=== PATIENT | female | born 1960 | race Caucasian/White ===

== ENCOUNTER → 2017-02-01 | Outpatient (CLI) | payer BC ==
[~2017-02-01] MED LIST: ACET-1311 PO; AMLO2.5T PO; GLC/500 PO; GLIM4TAB2 PO; HYDR25TA4 PO; LOSA1TAB38 PO; METF500T PO; MISCCAP80 PO; MULT-506 PO; NXM/40 PO; OXYB15TA12 PO; POTA20TA16 PO; PSYL0.524 PO; SOLI5TAB2 PO; VITACAP26 PO
[2017-02-01 18:51] LABS: BLOOD UREA NITROGEN 14 mg/dl (7-18); BUN/CREATININE RATIO 21.1 (10-20); CALCIUM 9.2 mg/dl (8.5-10.1); CARBON DIOXIDE 27 mmol/L (21-32); CHLORIDE 105 mmol/L (98-107); CREATININE 0.65 mg/dl (0.60-1.20); GLUCOSE 114 mg/dl (70-99); POTASSIUM 3.5 mmol/L (3.5-5.1); SODIUM 141 mmol/L (136-145)
[2017-02-02 06:23] LABS: ESTIMATED AVERAGE GLUCOSE 163 mg/dl; HA1C FLAG Normal (Normal)
== END | disposition home or self-care (01) ==
LOC: C.LABBFT 11:48
PROVIDERS: ATTEND Internal Medicine Geriatric Medicine
DX: K58.9 Irritable bowel syndrome, unspecified (principal); I10 Essential (primary) hypertension; E11.9 Type 2 diabetes mellitus without complications; G47.30 Sleep apnea, unspecified; E87.6 Hypokalemia

== ENCOUNTER → 2017-02-09 | Outpatient (CLI) | payer BC ==
--- NOTE | 2017-02-10 08:27 | MAMMOGRAPHY REPORT ---
BILATERAL DIGITAL SCREENING MAMMOGRAM WITH CAD: 02/09/2017 CLINICAL HISTORY: Routine screening. Patient has no complaints. TECHNIQUE: Bilateral CC and MLO views were obtained. Current study was also evaluated with a Comput er Aided Detection (CAD) system. COMPARISON: Comparison is made to exams dated: 02/05/2015 mammogram, 02/07/2016 mammogram, 02/14/2013 u ltrasound, 02/14/2013 mammogram, 02/01/2014 mammogram, and 01/31/2013 mammogram - [facility]. BREAST COMPOSITION: The tissue of both breasts is heterogeneously dense, which may obscure small ma sses. FINDINGS: There is stable asymmetry in the middle one third of the left breast, along the posterior nipple line on the MLO view. There are scattered benign punctate and rim calcifications throughout the breasts. No new suspicious mass, architectural distortion or cluster of microcalcifications is seen. IMPRESSION: ACR BI-RADS CATEGORY 1: NEGATIVE There is no mammographic evidence of malignancy. A 1 year screening mammogram is recommended. The p atient will receive written notification of the results. Approximately 10% of breast cancers are not detected with mammography. A negative mammographic repor t should not delay biopsy if a clinically suggestive mass is present. Lucia Ortiz M.D. ay/:02/09/2017 15:32:23 Windows Phone Developer: Delisa HOLMAN)(Juan), [facility] letter sent: Normal 1/2 BI-RADS Code: ACR BI-RADS Category 1: Negative
== END | disposition home or self-care (01) ==
LOC: C.MAMM 10:28
PROVIDERS: ATTEND Obstetrics & Gynecology
DX: Z12.31 Encounter for screening mammogram for malignant neoplasm of breast (principal)

== ENCOUNTER → 2017-04-14 | Day surgery (SDC) | payer BC ==
[2017-04-07 08:07] VITALS: Ht 167.6 cm; Wt 105.5 kg
[~2017-04-14] VITALS: Ht 167.6 cm; Wt 105.5 kg
[~2017-04-14] MED LIST changes: +LIDOCAINE HCL 2% 2 ML VIAL (20MG/ML) ONE; -METF500T PO; +PROPOFOL IV EMULSION 10 MG/ML 20 ML VIAL IV ONE; -PSYL0.524 PO; +SODIUM CHLORIDE 0.9% 500ML 500 ML IV ONE; -SOLI5TAB2 PO
--- NOTE | 2017-04-14 12:26 | Endo History and Physical ---
History & Physical Date of Service: Apr 14, 2017. Chief Complaint: diarrhea Referring Physician: Dr. Jay Alvarez History of Present Illness 57 yo CF who presents for colonoscopy secondary to diarrhea. Past Surgical History Hx Cardiac Surgery: No Hx Internal Defibrillator: No Hx Pacemaker: No Hx Abdominal Surgery: Yes (D&C AND HYSTEROSCOPY, ROHITH, CRYO, MALDONADO BSO) Hx of Implantable Prosthesis: No Hx Post-Op Nausea and Vomiting: No Hx Cancer Surgery: No Hx Thoracic Surgery: No Hx Orthopedic: No Hx Urinary Tract Surgery: No Family History Polyp Social History Smoking Status: Never Smoker Hx Substance Use: No Hx Alcohol Use: No Allergies Coded Allergies: Latex (Verified Allergy, Intermediate, RASH., 04/14/17) Adhesives (Verified Allergy, Unknown, LOCAL RASH, 04/14/17) Fluconazole (Verified Allergy, Unknown, RASH ALL OVER BODY, 04/07/17) Iodine (Verified Allergy, Unknown, PT VERB. FATHER SEVERELY ALG TO IODINE , 04/07/17) PT NEVER HAD IODINE TO EXPERIENCE Sulfa Drugs (Verified Allergy, Unknown, BLISTERS IN MOUTH, 04/07/17) Current Medications Reported Home Medications Medications Dose Route/Sig Max Daily Dose Days Date Category Glucophage (Metformin Hcl) 500 Mg Tab 500 Mg PO BID 04/14/17 Reported Ditropan Xl (Oxybutynin Chloride) 15 Mg Tab 1 Tab PO QAM 90 04/07/17 Reported Klor-Con (Potassium Chloride) 20 Meq Tabcr 20 Meq PO QAM 04/07/17 Reported Tylenol (Acetaminophen) 325 Mg Tab 2 Tab PO QAM 04/07/17 Reported Vitamin C (Vitamins C & E) 1 Cap Cap 1 Cap PO QAM 04/07/17 Reported Norvasc (Amlodipine Besylate) 2.5 Mg Tab 2 Tab PO QAM 04/07/17 Reported Probiotic (Probiotic Product) 1 Cap Cap 1 Tab PO QAM 04/07/17 Reported Multivitamin (Multivitamins) Tab 1 Tab PO QAM 04/07/17 Reported Glimepiride 4 Mg Tab 1 Tab PO QAM 90 04/07/17 Reported Hctz (Hydrochlorothiazide) 25 Mg Tab 25 Mg PO QAM 03/07/13 Reported Cozaar (Losartan Potassium) 100 Mg Tab 100 Mg PO QAM 03/07/13 Reported Vital Signs Weight (Kilograms): 105.45 Height (Feet): 5 Height (Inches): 6 Date Time Temp Pulse Resp B/P (MAP) Pulse Ox O2 Delivery O2 Flow Rate FiO2 04/14/17 11:36 36.8 87 16 141/72 (95) 97 Room Air Physical Exam General Appearance: WD/WN, no apparent distress Respiratory/Chest: Auscultation: breath sounds normal Cardiovascular: Heart Auscultation: RRR Abdomen: Bowel Sounds: normal Inspection & Palpation: soft, non-distended, no tenderness, guarding & rebound Assessment and Plan Assessment: 57 yo CF who presents for colonoscopy secondary to diarrhea. Plan: Proceed with colonoscopy.
--- NOTE | 2017-04-14 13:02 | GI REPORT ---
Procedure Date: 04/14/2017 12:18 PM Procedure: Colonoscopy Indications: Chronic diarrhea Medicines: Monitored Anesthesia Care Complications: No immediate complications. Estimated Blood Loss: Estimated blood loss: none. Procedure: Pre-Anesthesia Assessment: - Prior to the procedure, a History and Physical was performed, and patient medications and allergies were reviewed. The patient's tolerance of previous anesthesia was also reviewed. The risks and benefits of the procedure and the sedation options and risks were discussed with the patient. All questions were answered, and informed consent was obtained. Prior Anticoagulants: The patient has taken no previous anticoagulant or antiplatelet agents. ASA Grade Assessment: III - A patient with severe systemic disease. After reviewing the risks and benefits, the patient was deemed in satisfactory condition to undergo the procedure. After I obtained informed consent, the scope was passed under direct vision. Throughout the procedure, the patient's blood pressure, pulse, and oxygen saturations were monitored continuously. The scope was introduced through the anus and advanced to the terminal ileum. The colonoscopy was performed without difficulty. The patient tolerated the procedure well. The quality of the bowel preparation was good. The ileocecal valve, appendiceal orifice, and rectum were photographed. Findings: Multiple small-mouthed diverticula were found in the sigmoid colon. Non-bleeding internal hemorrhoids were found during retroflexion. The hemorrhoids were small. Several random biopsies were obtained with cold forceps for histology in the entire colon. Fluid aspiration for cytology was performed in the entire colon. Impression: - Diverticulosis in the sigmoid colon. - Non-bleeding internal hemorrhoids. - Several random biopsies were obtained in the entire colon. - Fluid aspiration was performed. Recommendation: - Resume previous diet. - Continue present medications. - Repeat colonoscopy for surveillance based on pathology results. - Return to primary care physician as previously scheduled. Desmond Jacobsen DO 04/14/2017 1:01:30 PM This report has been signed electronically. Note Initiated On: 04/14/2017 12:18 PM I attest to the content of the Intraoperative Record and orders documented therein, exceptions below
--- NOTE | 2017-04-14 13:03 | Discharge Instructions ---
Endoscopy Patient Instructions Date / Procedure(s) Performed Apr 14, 2017. Colonoscopy Allergy Information Coded Allergies: Latex (Verified Allergy, Intermediate, RASH., 04/14/17) Adhesives (Verified Allergy, Unknown, LOCAL RASH, 04/14/17) Fluconazole (Verified Allergy, Unknown, RASH ALL OVER BODY, 04/07/17) Iodine (Verified Allergy, Unknown, PT VERB. FATHER SEVERELY ALG TO IODINE , 04/07/17) PT NEVER HAD IODINE TO EXPERIENCE Sulfa Drugs (Verified Allergy, Unknown, BLISTERS IN MOUTH, 04/07/17) Discharge Date / Findings Apr 14, 2017. Random colon biopsies Stool studies collected Diverticulosis Internal hemorrhoids Medication Instructions OK to resume all medications today as prescribed Reported Home Medications Medications Dose Route/Sig Max Daily Dose Days Date Category Glucophage (Metformin Hcl) 500 Mg Tab 500 Mg PO BID 04/14/17 Reported Ditropan Xl (Oxybutynin Chloride) 15 Mg Tab 1 Tab PO QAM 90 04/07/17 Reported Klor-Con (Potassium Chloride) 20 Meq Tabcr 20 Meq PO QAM 04/07/17 Reported Tylenol (Acetaminophen) 325 Mg Tab 2 Tab PO QAM 04/07/17 Reported Vitamin C (Vitamins C & E) 1 Cap Cap 1 Cap PO QAM 04/07/17 Reported Norvasc (Amlodipine Besylate) 2.5 Mg Tab 2 Tab PO QAM 04/07/17 Reported Probiotic (Probiotic Product) 1 Cap Cap 1 Tab PO QAM 04/07/17 Reported Multivitamin (Multivitamins) Tab 1 Tab PO QAM 04/07/17 Reported Glimepiride 4 Mg Tab 1 Tab PO QAM 90 04/07/17 Reported Hctz (Hydrochlorothiazide) 25 Mg Tab 25 Mg PO QAM 03/07/13 Reported Cozaar (Losartan Potassium) 100 Mg Tab 100 Mg PO QAM 03/07/13 Reported Provider Instructions Activity Restrictions - No exercising or heavy lifting for 24 hours. - Do not drink alcohol the day of the procedure. - Do not drive a car or operate machinery until the day after the procedure. - Do not make any important decisions or sign important papers in 24 hours after the procedure. Following Day: - Return to full activity which may include returning to work/school. Diet Start your diet with liquids and light foods (jello, soup, juice, toast). Then eat your usual diet if not nauseated. Treatment For Common After Affects For mild abdominal pain, bloating, or excessive gas: - Rest - Eat lightly - Lie on right side Follow-Up Information Follow-up with Dr. Jay Alvarez as scheduled Anesthesia Information What You Should Know You have had a procedure that required some medicine to reduce anxiety and discomfort. This treatment is called moderate sedation. After receiving the treatment, you may be sleepy, but you will be able to breathe on your own. The effects of the treatment may last for several hours. Follow these instructions along with Activity/Diet recommendations noted above: * Do NOT do anything where dizziness or clumsiness would be dangerous. * Rest quietly at home today, then you can be up and about tomorrow. * Have a responsible person stay with you the rest of today. * You may have had an I.V. today. If so, you may take the dressing off later today. Recommendations Call your doctor if: * Trouble breathing * Continuous vomiting for more than 24 hours * Temperature above 101 degrees * Severe abdominal pain or bloating * Pain not relieved by pain medicine ordered * There is increased drainage or redness from any incision * A large amount of rectal bleeding greater than 2-3 tablespoons. (If you had a polyp/s removed or have hemorrhoids, a small amount of blood - from the rectum is to be expected.) * You have any unanswered questions or concerns. IN THE EVENT OF A SERIOUS EMERGENCY, GO TO THE NEAREST EMERGENCY ROOM Your discharge instructions were prepared by provider Desmond Jacobsen. Patient Instructions Signature Page Jayde Auguste Patient (or Guardian) Signature/Date: I have read and understand the instructions given to me by my caregivers. Caregiver/RN/Doctor Signature/Date: The above-named patient and/or guardian has received patient instructions on this date. + Original Patient Signature Page (only) stays with chart. Please make copy for patient.
--- NOTE | 2017-04-14 13:15 | Anesthesiology Progress Note ---
Anesthesia Post Op Note Date & Time Apr 14, 2017 at 13:15 Vital Signs Pain Intensity: 0 Vital Signs Past 12 Hours Date Time Temp Pulse Resp B/P (MAP) Pulse Ox O2 Delivery O2 Flow Rate FiO2 04/14/17 13:09 86 16 112/98 (103) 97 Room Air 04/14/17 12:54 77 16 113/69 (84) 97 Room Air 04/14/17 11:36 36.8 87 16 141/72 (95) 97 Room Air Notes Mental Status: alert / awake / arousable, participated in evaluation Pt Amnestic to Procedure: Yes Nausea / Vomiting: adequately controlled Pain: adequately controlled Airway Patency, RR, SpO2: stable & adequate BP & HR: stable & adequate Hydration State: stable & adequate Anesthetic Complications: no major complications apparent
[2017-04-14 13:25] VITALS: BP 113/80; PULSE 76; O2SAT 98
== END | disposition home or self-care (01) ==
LOC: C.GI 11:08
PROVIDERS: ATTEND Internal Medicine
DX: R19.7 Diarrhea, unspecified (principal); K57.30 Diverticulosis of large intestine without perforation or abscess without bleeding; K64.8 Other hemorrhoids

== ENCOUNTER → 2017-06-17 | Outpatient (CLI) | payer BC ==
[~2017-06-17] MED LIST changes: -LIDOCAINE HCL 2% 2 ML VIAL (20MG/ML) ONE; -NXM/40 PO; -PROPOFOL IV EMULSION 10 MG/ML 20 ML VIAL IV ONE; -SODIUM CHLORIDE 0.9% 500ML 500 ML IV ONE
[2017-06-17 14:09] LABS: ESTIMATED AVERAGE GLUCOSE 154 mg/dl; HA1C FLAG Normal (Normal)
[2017-06-17 16:43] LABS: BLOOD UREA NITROGEN 13 mg/dl (7-18); BUN/CREATININE RATIO 20.8 (10-20); CALCIUM 9.8 mg/dl (8.5-10.1); CARBON DIOXIDE 28 mmol/L (21-32); CHLORIDE 105 mmol/L (98-107); CREATININE 0.61 mg/dl (0.60-1.20); GLUCOSE 81 mg/dl (70-99); POTASSIUM 3.6 mmol/L (3.5-5.1); SODIUM 139 mmol/L (136-145)
[2017-06-22 12:30] LABS: IGA SERUM 202 mg/dL (81-463); TIS TRANS IGA 1 U/mL (<4)
== END | disposition home or self-care (01) ==
LOC: C.LABBC 12:10
PROVIDERS: ATTEND Internal Medicine Geriatric Medicine
DX: I10 Essential (primary) hypertension (principal); R19.7 Diarrhea, unspecified; E11.9 Type 2 diabetes mellitus without complications

== ENCOUNTER → 2018-02-11 | Outpatient (CLI) | payer OTHER ==
[~2018-02-11] MED LIST changes: +POTA-639 PO; -POTA20TA16 PO
--- NOTE | 2018-02-11 14:20 | MAMMOGRAPHY REPORT ---
BILATERAL DIGITAL SCREENING MAMMOGRAM TOMOSYNTHESIS WITH CAD: 02/11/2018 CLINICAL HISTORY: Routine screening. Patient has no complaints. TECHNIQUE: Breast tomosynthesis in addition to standard 2D mammography was performed. Current study was also evaluated with a Computer Aided Detection (CAD) system. COMPARISON: Comparison is made to exams dated: 02/09/2017 mammogram, 02/07/2016 mammogram, 02/05/2015 ma mmogram, 02/01/2014 mammogram, 02/14/2013 mammogram, and 01/31/2013 mammogram - [facility] ter. BREAST COMPOSITION: The tissue of both breasts is heterogeneously dense, which may obscure small mas ses. FINDINGS: No suspicious masses, calcifications, or areas of architectural distortion are noted in ei ther breast. There has been no significant interval change compared to prior exams. Bilateral benign -appearing calcifications are not significantly changed. Left breast asymmetries are stable compared to multiple prior exams. IMPRESSION: ACR BI-RADS CATEGORY 2: BENIGN There is no mammographic evidence of malignancy. A 1 year screening mammogram is recommended. The pa tient will receive written notification of the results. Approximately 10% of breast cancers are not detected with mammography. A negative mammographic report should not delay biopsy if a clinically suggestive mass is present. Roshni Garduno M.D. ah/:02/11/2018 09:11:30 Electric Meter Tester Helper: Cleopatra MARRERO(Zhane)(Juan)(BD), [facility] letter sent: Normal 1/2 BI-RADS Code: ACR BI-RADS Category 2: Benign
== END | disposition home or self-care (01) ==
LOC: C.MAMM 08:27
PROVIDERS: ATTEND Obstetrics & Gynecology
DX: Z12.31 Encounter for screening mammogram for malignant neoplasm of breast (principal)

== ENCOUNTER 2018-12-04 22:17 | Inpatient (IN) ==
[2018-12-04] MEDS ORDERED: ALBUT/IPRATROP 3MG/0.5MG NEB 3 ML VIAL INH STA (22:48)
[2018-12-04] MEDS ORDERED: ONDANSETRON INJ 2 MG/ML 2 ML VIAL IV STA (22:48)
[2018-12-04] MEDS ORDERED: SODIUM CHLORIDE 0.9% 1000ML 1,000 ML IV ONE (22:48)
[2018-12-04 23:00] LABS: Hematocrit (blood only) 33.5 % (37-47); Hemoglobin 11.5 g/dL (12.0-16.0); Mean Corpuscular Hgb Conc 34.3 g/dL (32-36); Mean Corpuscular Volume 88.6 fL (80-100); Mean Platelet Volume 11.4 fL (7.4-10.4); Platelet Count 234 K/uL (130-400); RDW Coefficient of Variation 14.8 % (11.5-14.5); RDW Standard Deviation 48.1 fL (36.4-46.3); Red Blood Count 3.78 M/uL (4.2-5.4); White Blood Count 12.24 K/uL (4.8-10.8)
--- NOTE | 2018-12-04 23:01 | Emergency Department Note ---
Entered by Daisy Jarvis acting as a scribe for History of Present Illness General Chief complaint: Respiratory Problems Stated complaint: PNEUMONIA Time Seen by Provider: 12/04/18 22:39 Source: patient Mode of arrival: ambulatory Limitations: no limitations History of Present Illness Onset (ago): day(s) 3 Location: chest Radiation: non-radiation Pain Consistency: + constant Exacerbated By: + movement and + other (exertion) Associated symptoms: + cough, + diaphoresis and + nausea/vomiting; no fever/ chills The patient is a 58 year old female who presents to the Emergency Room with complaints of respiratory problems for the past 3 days. She states she started feeling short of breath and easily windeed 3 days ago[address] She called Dr. Alvarez' s office and had a chest X-Ray done that showed bilateral pneumonia. This past weekend, she felt very fatigued and was unable to go to [employer] like normal. She was started on Doxycycline by Dr. Alvarez's office but states she has been nauseous and thinks she vomited up the 2nd dose of Doxy that she took today. She admits to diaphoresis but does not think she's been febrile. Her cough has been non-productive. The patient notes she has had pneumonia before. She is a non-smoker. She denies any prior cardiac history. The patients WBC was 9.8 on 12/02/18. She did have some liver enzyme elevations. An Xray did show basilar congestion, possible atelectasis or possible pneumonia. Home Medications Home Medications Medication Instructions Recorded Confirmed Type Lactobacillus acidophilus 460 mg PO DAILY 12/04/18 12/04/18 History [Florajen] amlodipine 2.5 mg PO DAILY 12/04/18 12/04/18 History ascorbic acid (vitamin C) [Vitamin 500 mg PO DAILY 12/04/18 12/04/18 History C] colestipol 1 g PO BID 12/04/18 12/04/18 History glimepiride 4 mg PO QAM 12/04/18 12/04/18 History hydrochlorothiazide 25 mg PO DAILY 12/04/18 12/04/18 History losartan 100 mg PO DAILY 12/04/18 12/04/18 History metformin 500 mg PO BID 12/04/18 12/04/18 History multivitamin 1 tab PO DAILY 12/04/18 12/04/18 History oxybutynin chloride 15 mg PO DAILY 12/04/18 12/04/18 History potassium chloride [Klor-Con M20] 20 meq PO DAILY 12/04/18 12/04/18 History Allergies Allergy/AdvReac Type Severity Reaction Status Date / Time latex Allergy Intermediate RASH. Verified 12/04/18 22:48 adhesive Allergy Unknown LOCAL RASH Verified 12/04/18 22:48 fluconazole Allergy Unknown RASH ALL Verified 12/04/18 22:48 OVER BODY Sulfa (Sulfonamide Allergy Unknown BLISTERS Verified 12/04/18 22:48 Antibiotics) IN MOUTH Past Med/Surg History Medical History History of pneumonia GERD (gastroesophageal reflux disease) Social History Feels Safe at Home: Yes Smoking Status: Never smoker Review of Systems See HPI for pertinent positives & negatives. and A total of 10 systems reviewed and were otherwise negative Physical Exam Vital Signs Vital Signs - 24 hr 12/04/18 22:20 12/04/18 22:41 12/04/18 22:51 Temperature 37.5 C Temperature Source Oral Sepsis Recent Fever Within 48 Hours No Sepsis Action Taken by Nursing No Action Required Pulse Rate 123 H 123 H Pulse Rate [Apical] Respiratory Rate 20 20 Respiratory Effort / Characteristics Non-Labored SOB on Exertion Respiratory Depth Normal Blood Pressure 160/77 H Blood Pressure [Left Arm] Blood Pressure Mean 104 Blood Pressure Mean [Left Arm] Pulse Oximetry 91 92 92 Oxygen Delivery Method Room Air Room Air Room Air Oxygen Flow Rate 12/04/18 23:39 12/05/18 00:30 12/05/18 00:34 Temperature 37.8 C H Temperature Source Oral Sepsis Recent Fever Within 48 Hours Sepsis Action Taken by Nursing Pulse Rate Pulse Rate [Apical] 115 H 105 H Respiratory Rate 31 H 25 H Respiratory Effort / Characteristics Respiratory Depth Blood Pressure Blood Pressure [Left Arm] 166/74 H 116/86 Blood Pressure Mean Blood Pressure Mean [Left Arm] 104 96 Pulse Oximetry 92 89 L 95 Oxygen Delivery Method Room Air Room Air Nasal Cannula Oxygen Flow Rate 2 GENERAL: Patient is in no acute distress. HEENT: No acute trauma, normocephalic atraumatic, mucous membranes dry, no nasal congestion, no scleral icterus. NECK: No stridor, no adenopathy, no meningismus, trachea is midline. LUNGS: Clear to auscultation bilaterally, no wheeze, no rhonchi, breath sounds equal. HEART: Tachycardic heart rate, regular rhythm, 2/6 systolic murmur. ABDOMEN: Soft, nontender, bowel sounds positive, no hernias, no peritonitis. EXTREMITIES: No cyanosis or edema, full range of motion of all the joints without pain or difficulty, no signs for acute trauma. NEUROLOGIC: Oriented x 3, no acute motor or sensory deficits, no focal weakness. SKIN: No rash, no jaundice, no diaphoresis. Course 2241: Past medical records reviewed. The patient was evaluated in room A12B, and a complete history and physical examination were performed. 2355: I reevaluated the patient. I discussed her results and my recommendation she remain in the hospital for further evaluation and management and she verbalized complete understanding and agreement. 0005: I discussed the patients case with Dr. Lawton, [facility]. The patient will be further evaluated. Consultations Consultation #1: I discussed the patients case with Dr. Lawton, [facility]. The patient will be further evaluated. Time: 00:05 Administered Medications Ioversol (Optiray 320 125ml) 107 ml IV ONCE PRN PRN Reason: Interaction Checking Stop: 12/09/18 00:28 Last Admin: 12/05/18 00:30 Dose: 107 ml Discontinued Medications Albuterol (Duoneb) 3 ml INH NOW STA Stop: 12/04/18 22:49 Last Admin: 12/04/18 22:57 Dose: 3 ml Sodium Chloride (Nss 1000ml) 1,000 mls @ 999 mls/hr IV .Q1H1M ONE Stop: 12/04/18 23:48 Last Infusion: 12/04/18 23:59 Dose: 0 mls/hr Admin: 12/04/18 22:57 Dose: 999 mls/hr Piperacillin Sod/Tazobactam Sod (Zosyn) 4.5 gm in 120 mls @ 240 mls/hr IV NOW ONE Stop: 12/04/18 23:55 Last Infusion: 12/05/18 00:33 Dose: 0 mls/hr Admin: 12/04/18 23:36 Dose: 240 mls/hr Sodium Chloride (Nss 1000ml) 500 mls @ 999 mls/hr IV .Q31M ONE Stop: 12/05/18 00:23 Last Admin: 12/05/18 00:32 Dose: 999 mls/hr Ondansetron HCl (Zofran) 4 mg IV NOW STA Stop: 12/04/18 22:49 Last Admin: 12/04/18 22:57 Dose: 4 mg Medical Decision Making Differential Diagnosis The differential diagnoses considered include: Pneumonia or bronchitis, dehydration, failed outpatient treatment, CHF, ME, angina, renal failure, anemia. Medical Records Attestation: I reviewed the patient's medical records. Home Medications Current Medication List: was personally reviewed by me Laboratory Data Attestation: I reviewed the patient's lab results. Result diagrams: 12/04/18 22:39 12/04/18 22:39 Lab Results 12/04/18 12/04/18 12/04/18 Range/Units 21:24 22:39 22:39 WBC 12.24 H (4.8-10.8) K/uL RBC 3.78 L (4.2-5.4) M/uL Hgb 11.5 L (12.0-16.0) g/dL Hct 33.5 L (37-47) % MCV 88.6 (80-100) fL MCH 30.4 (25-34) pg MCHC 34.3 (32-36) g/dL RDW Std Deviation 48.1 H (36.4-46.3) fL RDW Coeff of Benjamin 14.8 H (11.5-14.5) % Plt Count 234 (130-400) K/uL MPV 11.4 H (7.4-10.4) fL Neutrophils % (Manual) 31.3 % Lymphocytes % (Manual) 7.0 % Reactive Lymphs % (Man) 55.6 % Monocytes % (Manual) 5.2 % Myelocytes % (Man) 0.9 % Neutrophils # (Manual) 3.83 (1.4-6.5) K/uL Total Absolute Neuts 3.83 (1.4-6.5) K/uL Lymphocytes # (Manual) 0.86 L (1.2-3.4) K/uL Reactive Lymphs # 6.81 K/uL Total Abs Lymphocytes 7.66 H (1.2-3.4) K/uL Monocytes # (Manual) 0.64 H (0.11-0.59) K/uL Myelocytes # (Manual) 0.11 H (0-0) K/uL Toxic Vacuolation Occasional PT Cancelled INR Cancelled APTT Cancelled PTT Ratio Cancelled Sodium (136-145) mmol/L Potassium (3.5-5.1) mmol/L Chloride (98-107) mmol/L Carbon Dioxide (21-32) mmol/L Anion Gap (3-11) BUN (7-18) mg/dl Creatinine (0.6-1.2) mg/dl Est Cr Clr Drug Dosing ml/min Est GFR ( Amer) Est GFR (Non-Af Amer) BUN/Creatinine Ratio (10-20) Glucose (70-99) mg/dl Lactate (0.4-2.0) mmol/L Calcium (8.5-10.1) mg/dl Magnesium (1.8-2.4) mg/dl Total Bilirubin (0.2-1) mg/dl AST (15-37) U/L ALT (12-78) U/L Alkaline Phosphatase (45-117) U/L Troponin I (0-0.045) ng/ml Total Protein (6.4-8.2) gm/dl Albumin (3.4-5.0) gm/dl Globulin (2.5-4.0) gm/dl Albumin/Globulin Ratio (0.9-2) Influenza Type A Ag Neg for Influ A (Neg) Influenza Type B Ag Neg for Influ B (Neg) 12/04/18 12/04/18 Range/Units 22:39 23:07 WBC (4.8-10.8) K/uL RBC (4.2-5.4) M/uL Hgb (12.0-16.0) g/dL Hct (37-47) % MCV (80-100) fL MCH (25-34) pg MCHC (32-36) g/dL RDW Std Deviation (36.4-46.3) fL RDW Coeff of Benjamin (11.5-14.5) % Plt Count (130-400) K/uL MPV (7.4-10.4) fL Neutrophils % (Manual) % Lymphocytes % (Manual) % Reactive Lymphs % (Man) % Monocytes % (Manual) % Myelocytes % (Man) % Neutrophils # (Manual) (1.4-6.5) K/uL Total Absolute Neuts (1.4-6.5) K/uL Lymphocytes # (Manual) (1.2-3.4) K/uL Reactive Lymphs # K/uL Total Abs Lymphocytes (1.2-3.4) K/uL Monocytes # (Manual) (0.11-0.59) K/uL Myelocytes # (Manual) (0-0) K/uL Toxic Vacuolation PT INR APTT PTT Ratio Sodium 134 L (136-145) mmol/L Potassium 3.9 (3.5-5.1) mmol/L Chloride 99 (98-107) mmol/L Carbon Dioxide 25 (21-32) mmol/L Anion Gap 10.0 (3-11) BUN 13 (7-18) mg/dl Creatinine 0.93 (0.6-1.2) mg/dl Est Cr Clr Drug Dosing 74.7 ml/min Est GFR ( Amer) 77.4 Est GFR (Non-Af Amer) 66.8 BUN/Creatinine Ratio 14.3 (10-20) Glucose 91 (70-99) mg/dl Lactate 2.0 (0.4-2.0) mmol/L Calcium 8.8 (8.5-10.1) mg/dl Magnesium 1.9 (1.8-2.4) mg/dl Total Bilirubin 2.4 H (0.2-1) mg/dl AST 175 H (15-37) U/L ALT 232 H (12-78) U/L Alkaline Phosphatase 364 H (45-117) U/L Troponin I < 0.015 (0-0.045) ng/ml Total Protein 8.4 H (6.4-8.2) gm/dl Albumin 3.0 L (3.4-5.0) gm/dl Globulin 5.4 H (2.5-4.0) gm/dl Albumin/Globulin Ratio 0.6 L (0.9-2) Influenza Type A Ag (Neg) Influenza Type B Ag (Neg) Imaging Data Attestation: I personally reviewed and interpreted this imaging study as follows : My Impression: CHEST X-RAY No CHF or pneumothorax. Bibasilar congestion, worse on the right. Film looks similar to X-Ray from 12/02/18. ECG Data Attestation: I personally reviewed and interpreted this ECG as follows: Indication: SOB/dyspnea Rate (beats per minute): 113 Rhythm: sinus tachycardia Findings: no PVC and no ST elevation Blood Pressure Blood Pressure Findings: Elevated blood pressure Blood Pressure Disposition: Referred to patients primary care provider MDM Narrative There is a mild leukocytosis. This certainly could be consistent with infection. No worrisome anemia. No significant electrolyte abnormality or kidney failure. The patient does have elevated liver enzymes, they are slightly worse than just a few days ago, patient has already had her gallbladder removed. EKG shows a sinus tachycardia, no acute ischemia. Cardiac enzyme testing x1 is not consistent with acute cardiac injury. Influenza testing is negative. Chest film does suggest a bilateral lower lobe pneumonia, worse on the right. There was no CHF, no pneumothorax. Blood cultures are pending. Lactic acid level was not significantly elevated making severe sepsis less likely. The patient presents tachycardic and short of breath. She is vomiting her doxycycline which was prescribed a few days ago. She is not improved since seeing her doctors office. Patient was given a DuoNeb, she received IV saline for hydration. A second dose of IV saline was given. She was given IV Zofran for nausea, IV Zosyn as antibiotic coverage. Patient is failing outpatient treatment, I do think a hospital stay is warranted. She presents tachycardic, and on workup, does have an elevated white count and some liver enzyme elevations. The cause for the elevated liver enzymes is unclear. I did speak with case management, the on-call hospitalist was consulted. The patient is aware of all her findings. Of note, I did order for a chest CT to better evaluate the lung findings and look for the possibility of PE, this result is pending. Impression & Plan Pneumonia, Shortness of breath, Tachycardia, Failure of outpatient treatment, Vomiting, Liver enzyme elevation Discharge Plan Visit Data Chief Complaint: Respiratory Problems Stated Complaint: PNEUMONIA ED Provider: Andrés Pan Discharge Problem: Pneumonia, Shortness of breath, Tachycardia, Failure of outpatient treatment, Vomiting, Liver enzyme elevation Patient Disposition: Being Evaluated by Hospitalist Forms Stand Alone Forms: My [facility] Prescriptions Prescriptions: No Action multivitamin Tablet 1 tab PO DAILY RF: 0 metformin 500 mg Tablet 500 mg PO BID RF: 0 oxybutynin chloride 15 mg Tablet Extended Release 24hr 15 mg PO DAILY RF: 0 amlodipine 2.5 mg Tablet 2.5 mg PO DAILY RF: 0 potassium chloride [Klor-Con M20] 20 mEq Tablet,Er Particles/Crystals 20 meq PO DAILY RF: 0 ascorbic acid (vitamin C) [Vitamin C] 500 mg Tablet 500 mg PO DAILY RF: 0 glimepiride 4 mg Tablet 4 mg PO QAM RF: 0 hydrochlorothiazide 25 mg Tablet 25 mg PO DAILY RF: 0 losartan 100 mg Tablet 100 mg PO DAILY RF: 0 colestipol 1 gram Tablet 1 g PO BID RF: 0 Lactobacillus acidophilus [Florajen] 460 mg (20 billion cell) Capsule 460 mg PO DAILY RF: 0 Referrals Referrals: Caryn Jc, [facility] [Primary Care Provider] - The scribe's documentation has been prepared under my direction and personally reviewed by me in its entirety. I confirm that the note above accurately reflects all work, treatment, procedures, and medical decision making performed by me.
[2018-12-04 23:18] LABS: Alanine Aminotransferase 232 U/L (12-78); Aspartate Aminotransferase 175 U/L (15-37); BUN Creatinine Ratio 14.3 (10-20); Blood Urea Nitrogen 13 mg/dl (7-18); Calcium 8.8 mg/dl (8.5-10.1); Carbon Dioxide 25 mmol/L (21-32); Chloride 99 mmol/L (98-107); Creatinine Clr Calc Pharmacy 74.7 ml/min; Est GFR (African American) 77.4; Est GFR (Non-African American) 66.8; Glucose 91 mg/dl (70-99); Magnesium 1.9 mg/dl (1.8-2.4); Potassium 3.9 mmol/L (3.5-5.1); Sodium 134 mmol/L (136-145)
[2018-12-04] MEDS ORDERED: PIPERACILLIN/TAZOBACTAM 4.5 GM/120 ML BAG IV ONE (23:26)
[2018-12-04 23:36] LABS: Albumin Globulin Ratio 0.6 (0.9-2); Alkaline Phosphatase 364 U/L (45-117); Bilirubin,Total 2.4 mg/dl (0.2-1); Globulin 5.4 gm/dl (2.5-4.0); Total Protein 8.4 gm/dl (6.4-8.2); Troponin I < 0.015 ng/ml (0-0.045)
[2018-12-04 23:47] LABS: ALC (manual) 7.66 K/uL (1.2-3.4); Lymphocytes # (manual) 0.86 K/uL (1.2-3.4); Monocytes # (manual) 0.64 K/uL (0.11-0.59); Monocytes % (manual) 5.2 %; Myelocytes # (manual) 0.11 K/uL (0-0); Myelocytes % (manual) 0.9 %; Neutrophils % (manual) 31.3 %; Reactive Lymphocytes # (manual) 6.81 K/uL; Toxic Vacuolation Occasional
[2018-12-04] MEDS ORDERED: SODIUM CHLORIDE 0.9% 1000ML 500 ML IV ONE (23:53)
[2018-12-05] MEDS ORDERED: OPTIRAY 320 125ml IV PRN (00:29)
--- NOTE | 2018-12-05 02:01 | History & Physical Report ---
Date of Service December 05, 2018 Assessment & Plan (1) Pneumonia: Ms. Auguste is a 58-year-old woman with a history of diabetes mellitus, hypertension, urinary urgency who presents to the emergency department due to a 3-day history of feeling unwell, with a dry cough, shortness of breath and night sweats. She received Duonebs, 1.5L NS bolus, 4mg of IV zofran and zosyn in the ED. -admit to med/surg with telemetry monitoring -Patient meets criteria for sepsis with fever, elevated resp rate, elevated white cell count and pulmonary source of infection -Blood cultures drawn and pending -Patient underwent CTA of chest given patient was persistently tachycardic -> no pulmonary embolism noted. Patient has left lingular consolidation, as well as patchy bilateral scarring. Of note, patient also had prominent mediastinal, hilar and axillary lymph nodes, as well as splenomegaly & b/l thyroid nodules -Patient has elevated white cell count with increased lymphocytes. This coupled with her CT scan findings of lymphadenopathy and splenomegaly is concerning for leukemia versus a viral infection -Peripheral smear ordered, as well as flow cytometry to evaluate for leukemia -Dr. Stokes consulted given her father's rare pulmonary problem -> potentially hereditary and relating to her current presentation? -pt received zosyn in ED, will continue treatment w/ceftriaxone as she may have superimposed pneumonia, in addition to her underlying ?viral process -duonebs ordered prn -currently on 2L via nasal cannula, wean as tolerated -600mg ibuprofen ordered q8h prn pain/fever -NS ordered @ 100mls/hr x1 bag given pt appeared dry on exam Transaminitis -LFTs were checked in October 2018, and she only had mild elevation of the ALT and AST - 66 and 43 respectively. Her alkaline phosphatase and bilirubin were both normal at this time. She had another CMP done on December 02 which showed ALT of 247, AST of 147 alk phos of 310 and total bilirubin 1.3. Her LFTs have continued to worsen and today she has an ALT of 232, AST of 175, alkaline phosphatase of 364 and a total bilirubin of 2.4. -She had a biliary ultrasound done on 03/28 which showed hepatic steatosis and mild hepatomegaly. -Unsure at this time if her worsening LFTs are related to her lympadenopathy and splenomegaly, or a separate problem -EBV, CMV and hepatitis panel ordered -CT abdomen and pelvis with IV contrast ordered for tomorrow. Unable to do tonight given she had a CT thorax with IV contrast this evening. Diabetes Mellitus -Hold home metformin and glimepiride -Blood sugar checks AC/HS and placed on insulin sliding scale Hypertension -Continue home amlodipine, losartan and hydrochlorothiazide -Continue home potassium supplementation Urinary urgency -Continue home oxybutynin s/p Cholecystectomy -continue home colestipol Code status: Full, no mechanical ventilation as per discussion with patient DVT prophylaxis: Lovenox every 24 hours Disposition: admit to med/surg w/telemetry (2) Liver enzyme elevation: (3) Lymphadenopathy: (4) Splenomegaly: (5) Diabetes mellitus: (6) Hypertension: (7) Urinary urgency: (8) GERD (gastroesophageal reflux disease): (9) Failure of outpatient treatment: (10) Tachycardia: (11) Shortness of breath: History of Present Illness Primary Care Provider: Caryn Jc PA-C Ms. Auguste is a 58-year-old woman with a history of diabetes mellitus, hypertension, urinary urgency who presents to the emergency department due to a 3-day history of feeling unwell, with a dry cough, shortness of breath and night sweats. The patient states she thinks her symptoms began approximately 1 week ago. She notes that she was frequently in and out of the hospital as well as [facility], visiting her and another relative. She states that she began to feel short of breath on Wednesday, with minimal exertion, such as walking to her kitchen. She denies any chest pain or palpitations. She states that she checked her temperature at home and it was normal, but she did report chills and night sweats. She saw her primary care doctor who put her on a course of doxycycline. She took this for the past 2 days, but states her symptoms did not improve, but in fact worsened. She reports that she felt nauseous tonight and had an episode of vomiting. She states that her appetite has been significantly decreased over the last few days. She has a history of chronic diarrhea which began after she had her gallbladder removed. She states her diarrhea is no worse than usual. She does endorse mild epigastric discomfort, and states that this pain comes and goes. She is unsure if it is related to eating. She states that this feels different from her usual reflux symptoms. She denies unintentional weight loss, or a history of night sweats prior to feeling unwell. She denies a recent history of travel. She has no family history of leukemia or lymphoma. Her mother has a history of breast cancer, and her father has a history of a "lung problem" which she states was rare and Dr. Stokes wrote a case report on it. She is unsure of further details surrounding his lung problem. She also states that her was recently admitted to [facility] due to pancreatitis that was presumed to be secondary to a viral illness. Of note, she is a non-smoker, does not drink alcohol and denies use of recreational drugs. Allergies Allergy/AdvReac Type Severity Reaction Status Date / Time latex Allergy Intermediate RASH. Verified 12/04/18 22:48 adhesive Allergy Unknown LOCAL RASH Verified 12/04/18 22:48 fluconazole Allergy Unknown RASH ALL Verified 12/04/18 22:48 OVER BODY Sulfa (Sulfonamide Allergy Unknown BLISTERS Verified 12/04/18 22:48 Antibiotics) IN MOUTH Home Medications Home Medications Medication Instructions Recorded Confirmed Type Lactobacillus acidophilus 460 mg PO DAILY 12/04/18 12/04/18 History [Florajen] amlodipine 2.5 mg PO DAILY 12/04/18 12/04/18 History colestipol 1 g PO BID 12/04/18 12/04/18 History glimepiride 4 mg PO QAM 12/04/18 12/04/18 History losartan 100 mg PO DAILY 12/04/18 12/04/18 History multivitamin 1 tab PO DAILY 12/04/18 12/04/18 History oxybutynin chloride 15 mg PO DAILY 12/04/18 12/04/18 History mouthwash compounding base 227 1 ea MUCOUS MEMBRANE ACHS #150 ml 12/09/18 Rx prednisone 30 mg PO DAILY 5 Days #15 tab 12/09/18 Rx Past Med/Surg History Medical History History of pneumonia GERD (gastroesophageal reflux disease) Social History Preferred Language: Ma[place] Beliefs That Will Affect Care: None Current Living Situation: Spouse Feels Safe at Home: Yes Smoking Status: Never smoker Hx Alcohol Use: No Hx Substance Use: No Review of Systems Constitutional: + chills, + sweats, + fatigue, + weakness and + anorexia; no fever and no weight loss Respiratory: + cough; no hemoptysis, no pain on inspiration, no sputum production and no wheezing Cardiovascular: + dyspnea; no chest pain, no palpitations, no syncope, no edema and no calf pain Gastrointestinal: + abdominal pain, + nausea, + vomiting and + diarrhea/loose stools Genitourinary (Female): + urinary urgency; no dysuria and no urinary hesitancy Integumentary: no rash and no lesions Physical Exam Vital Signs (Past 24 Hours): Last Vital Signs Temp 37.8 C H 12/04/18 23:39 Pulse 106 H 12/05/18 01:30 Resp 30 H 12/05/18 01:30 BP 135/70 12/05/18 01:30 Pulse Ox 95 12/05/18 01:30 Constitutional: WD/WN, vitals as above + obese, cooperative, comfortable and + diaphoretic (mildly warm & diaphoretic) Eyes: PERRL, conjunctivae normal, anicteric sclerae Respiratory: normal respiratory effort, lungs clear to auscultation Cardiovascular: Rate/Rhythm: regular rhythm and + tachycardic Vessels: radial pulses present Extremities: normal capillary refill; no calf tenderness and no pedal edema Gastrointestinal (Abdomen): Percussion/Palpation: + abdomen tender (mildly tender over RUQ. No flank tenderness) and abdomen soft; no guarding and abdomen not rigid Psychiatric: A+Ox3, euthymic affect Results & Data Laboratory Results Laboratory Results - last 24 hr 12/04/18 12/04/18 12/04/18 21:24 22:39 22:39 WBC 12.24 H RBC 3.78 L Hgb 11.5 L Hct 33.5 L MCV 88.6 MCH 30.4 MCHC 34.3 RDW Std Deviation 48.1 H RDW Coeff of Benjamin 14.8 H Plt Count 234 MPV 11.4 H Neutrophils % (Manual) 31.3 Lymphocytes % (Manual) 7.0 Reactive Lymphs % (Man) 55.6 Monocytes % (Manual) 5.2 Myelocytes % (Man) 0.9 Neutrophils # (Manual) 3.83 Total Absolute Neuts 3.83 Lymphocytes # (Manual) 0.86 L Reactive Lymphs # 6.81 Total Abs Lymphocytes 7.66 H Monocytes # (Manual) 0.64 H Myelocytes # (Manual) 0.11 H Toxic Vacuolation Occasional PT Cancelled INR Cancelled APTT Cancelled PTT Ratio Cancelled Sodium Potassium Chloride Carbon Dioxide Anion Gap BUN Creatinine Est Cr Clr Drug Dosing Est GFR ( Amer) Est GFR (Non-Af Amer) BUN/Creatinine Ratio Glucose Lactate Calcium Magnesium Total Bilirubin AST ALT Alkaline Phosphatase Troponin I Total Protein Albumin Globulin Albumin/Globulin Ratio Influenza Type A Ag Neg for Influ A Influenza Type B Ag Neg for Influ B 12/04/18 12/04/18 22:39 23:07 WBC RBC Hgb Hct MCV MCH MCHC RDW Std Deviation RDW Coeff of Benjamin Plt Count MPV Neutrophils % (Manual) Lymphocytes % (Manual) Reactive Lymphs % (Man) Monocytes % (Manual) Myelocytes % (Man) Neutrophils # (Manual) Total Absolute Neuts Lymphocytes # (Manual) Reactive Lymphs # Total Abs Lymphocytes Monocytes # (Manual) Myelocytes # (Manual) Toxic Vacuolation PT INR APTT PTT Ratio Sodium 134 L Potassium 3.9 Chloride 99 Carbon Dioxide 25 Anion Gap 10.0 BUN 13 Creatinine 0.93 Est Cr Clr Drug Dosing 74.7 Est GFR ( Amer) 77.4 Est GFR (Non-Af Amer) 66.8 BUN/Creatinine Ratio 14.3 Glucose 91 Lactate 2.0 Calcium 8.8 Magnesium 1.9 Total Bilirubin 2.4 H AST 175 H ALT 232 H Alkaline Phosphatase 364 H Troponin I < 0.015 Total Protein 8.4 H Albumin 3.0 L Globulin 5.4 H Albumin/Globulin Ratio 0.6 L Influenza Type A Ag Influenza Type B Ag Medications Administered Current Inpatient Medications Ioversol (Optiray 320 125ml) 107 ml IV ONCE PRN PRN Reason: Interaction Checking Stop: 12/09/18 00:28 Last Admin: 12/05/18 00:30 Dose: 107 ml Supervising Physician Co-Signing Physician Notes Attending addendum: I have physically seen this patient, have supervised the medical residents activities, and agree with the H&P unless as otherwise noted. Assessment and Plan: Pneumonia/sepsis-- Duonebs every 4 hours while awake and every 2 hours when necessary. Pulmicort Respules 0.5 mg inhaled twice daily. Ceftriaxone 1 g IV daily. Azithromycin 500 mg IV daily. Guaifenesin extended release 600 mg p.o. twice daily NSS at 100 mils per hour Consult pulmonology, Dr. Stokes, due to question of hereditary pulmonary process for which Dr. Stokes has treated her father in the past and possible hereditary component. Transaminitis-- Connective tissue disease, inflammatory and infectious workup as noted. Remainder of orders notations as noted. Resident Activity Tracking Resident Involvement: Resident Care Provided Care Provided: Adult [facility]
[2018-12-05] MEDS ORDERED: ACETAMINOPHEN 325 MG TAB ONE (02:49)
[2018-12-05] MEDS ORDERED: GLUCOSE 10 TABS/TUBE PO PRN (04:08)
[2018-12-05] MEDS ORDERED: DEXTROSE 50% 50 ML SYRINGE IV PRN (04:08)
[2018-12-05] MEDS ORDERED: LEVALBUTEROL 1.25MG/0.5ML NEB NEB PRN (04:08)
[2018-12-05] MEDS ORDERED: GLUCAGON FOR INJ 1 MG VIAL SQ PRN (04:08)
[2018-12-05] MEDS ORDERED: SODIUM CHLORIDE 0.9% 1000ML 1,000 ML IV SCH (04:08)
[2018-12-05] MEDS ORDERED: GLUCOSE 40% GEL 15 GM TUBE PO PRN (04:08)
[2018-12-05] MEDS ORDERED: IBUPROFEN 600 MG TAB PO PRN (04:08)
[2018-12-05 06:32] LABS: Hematocrit (blood only) 31.7 % (37-47); Hemoglobin 10.8 g/dL (12.0-16.0); Mean Corpuscular Hgb Conc 34.1 g/dL (32-36); Mean Platelet Volume 10.9 fL (7.4-10.4); Nucleated RBC # (auto) 0.06 K/uL (0-0); Nucleated RBC % (auto) 0.4 %; Platelet Count 221 K/uL (130-400); RDW Coefficient of Variation 14.7 % (11.5-14.5); RDW Standard Deviation 48.3 fL (36.4-46.3); Red Blood Count 3.56 M/uL (4.2-5.4); White Blood Count 13.03 K/uL (4.8-10.8)
--- NOTE | 2018-12-05 06:35 | XRay Report ---
XR chest 1V portable HISTORY: 58 years-old Female sob acute shortness of breath COMPARISON: Chest radiographs 12/02/2018, CTA chest 12/05/2018 TECHNIQUE: Portable AP view of the chest FINDINGS: Cardiomediastinal and hilar silhouettes are within normal limits. There is no pneumothorax, pleural e ffusion or overt pulmonary edema. Linear linear and patchy subsegmental right greater than left bibas ilar opacities redemonstrated. Bones of the chest appear grossly intact. IMPRESSION: Persistent bibasilar opacities, right greater than left suggestive of atelectasis/scarrin g. The above report was generated using voice recognition software. It may contain grammatical, syntax o r spelling errors. Electronically signed by: Ant Oliveira M.D. 12/05/2018 6:33 AM
--- NOTE | 2018-12-05 06:38 | CT Scan Report ---
CT ANGIOGRAM OF THE CHEST CLINICAL HISTORY: Shortness of breath. Possible pulmonary embolism. COMPARISON STUDY: Chest x-ray dated 12/04/2018 TECHNIQUE: Following the IV administration of 107 mL of Optiray-320, CT angiogram of the thorax was p erformed from the thoracic inlet to the lung bases utilizing the pulmonary embolus protocol. Images a re reviewed in the axial, sagittal, and coronal planes. IV contrast was administered without complica tion. MIP imaging was performed. A dose lowering technique was utilized adhering to the principles o f ALARA. CT DOSE: 543.90 mGy.cm FINDINGS: There is a multinodular thyroid gland. There is mild hepatic steatosis. There is suspected splenomegaly. There are mildly enlarged bilateral axillary lymph nodes. There are mildly enlarged mediastinal lymph nodes with a 16 mm subcarinal node . Hilar lymph nodes are the upper limits of normal in size. There are mildly enlarged lower cervical lymph nodes. There was no evidence of thoracic aortic dilatation. There were no pulmonary artery filling defects to indicate acute pulmonary embolism. No pleural effusions are visualized. There are linear parenchymal opacities within the lingula right middle lobe and both lung bases stati stically atelectatic. IMPRESSION: 1. No evidence of acute pulmonary embolism 2. Mild cervical, mediastinal and axillary lymphadenopathy. An underlying lymphoproliferative disorde r cannot be excluded. 3. Multinodular thyroid gland 4. Mild hepatic steatosis and possible splenomegaly 5. Basilar opacities statistically atelectatic Electronically signed by: Jayden Medina M.D. 12/05/2018 6:37 AM
[2018-12-05 07:10] LABS: Albumin Globulin Ratio 0.5 (0.9-2); Albumin Level 2.7 gm/dl (3.4-5.0); BUN Creatinine Ratio 11.5 (10-20); Bilirubin,Total 2.3 mg/dl (0.2-1); Calcium 8.1 mg/dl (8.5-10.1); Creatinine Clr Calc Pharmacy 74.6 ml/min; Est GFR (African American) 77.4; Est GFR (Non-African American) 66.8; Globulin 5.3 gm/dl (2.5-4.0); Potassium 3.7 mmol/L (3.5-5.1)
[2018-12-05] MEDS: CARBOHYDRATES FOR HYPOGLYCEMIA PO PRN ×2 (07:18→07:40)
[2018-12-05 07:22] LABS: ALC (manual) 9.16 K/uL (1.2-3.4); Lymphocytes # (manual) 1.41 K/uL (1.2-3.4); Lymphocytes % (manual) 10.8 %; Monocytes # (manual) 0.23 K/uL (0.11-0.59); Monocytes % (manual) 1.8 %; Neutrophils % (manual) 27.9 %; RBC Morphology Unremarkable; Reactive Lymphocytes # (manual) 7.75 K/uL
[2018-12-05 08:42] LABS: Hepatitis B Surface Antigen Neg (Neg)
[2018-12-05] MEDS: OXYBUTYNIN CHLORIDE XL 5 MG TABCR PO SCH (09:00)
[2018-12-05] MEDS: AMLODIPINE BESYLATE 5 MG TAB PO SCH (09:01)
[2018-12-05] MEDS: POTASSIUM CHLORIDE 20 MEQ TABCR PO SCH (09:01)
[2018-12-05] MEDS: COLESTIPOL HCL 1 GM TAB PO SCH ×2 (09:01→21:03)
[2018-12-05] MEDS: MULTIVITAMIN TAB PO SCH (09:01)
[2018-12-05] MEDS: hydroCHLOROthiazide 25 MG TAB PO SCH (09:01)
[2018-12-05] MEDS: LOSARTAN POTASSIUM 50 MG TAB PO SCH (09:01)
[2018-12-05] MEDS: ASCORBIC ACID 500 MG TAB PO SCH (09:01)
[2018-12-05] MEDS: ENOXAPARIN INJ 40 MG/0.4 ML SYR SQ SCH (09:02)
[2018-12-05] MEDS ORDERED: AZITHROMYCIN 500 MG in DEXTROSE 5% 250 ML IV ONE (09:02)
[2018-12-05] MEDS: cefTRIAXone SODIUM 1,000 MG/50 ML BAG IV SCH (09:04)
[2018-12-05] MEDS: INSULIN ASPART 100 UNITS/ML 3 ML PEN SC SCH ×4 (09:05→20:59)
[2018-12-05 09:10] LABS: Hepatitis C IgG 13Yrs+Old_Rflx Neg (Neg)
[2018-12-05 11:17] LABS: INR 1.1 (0.9-1.1); Prothrombin Time 11.6 Seconds (9.0-12.0)
[2018-12-05 11:24] LABS: Amylase 30 U/L (25-115)
--- NOTE | 2018-12-05 13:27 | Consultation Report ---
DATE OF CONSULTATION: 12/05/2018 PULMONARY CONSULTATION TIME: 10:15 a.m. The patient was seen in room 284, bed 2. HISTORY OF PRESENT ILLNESS: She is a 58-year-old female who was in her usual state of good health until approximately 12/01/2018. She knows she was increasing shortness of breath with minimal exertion. She also had some increased fatigue. She complained of a dry cough. She began having some sweats nighttime and daytime. She checked her temperature, but it was not elevated. She subsequently saw her family doctor. A chest x-ray was done as an outpatient on 12/02/2018. This showed some increased markings at the bases, greater on the right than the left. An infiltrate could not be excluded. She was started on doxycycline. She developed significant nausea and vomiting. It is suspected it was secondary to doxycycline. She has not had any diarrhea. Her stomach symptoms have improved. Subsequently, she came to the Emergency Room yesterday. She was found to have a temperature up to 37.8. Heart rate was elevated at 123. A chest x-ray to the ER again showed bibasilar opacities, greater on the right than the left. A CT angio of the chest was done. This reported no evidence of pulmonary embolism. There was mild cervical, mediastinal and axillary lymphadenopathy. Multinodular thyroid gland was noted. Possible splenomegaly was seen with mild hepatic steatosis. The patient admits that about 6 months ago, she was found to have some elevation of the liver function test. Again, bibasilar opacities were noted. In the lingula, there was what I suspect is an infiltrate. It looks more infiltrated than atelectatic from my perspective. She is feeling better today. She did not cough during the exam. She did not seem short of breath at all. PAST PULMONARY HISTORY: Negative except for possible pneumonia in the past. She does have sleep apnea and wears a CPAP. She does not know the pressure. PAST MEDICAL HISTORY: 1. Hypertension. 2. Diabetes. 3. Reflux. PAST SURGICAL HISTORY: 1. Cholecystectomy. 2. Hysteroscopy. 3. Hysterectomy. SOCIAL HISTORY: Tobacco, never. ETOH - none. ALLERGIES: LATEX, ADHESIVES, FLUCONAZOLE, SULFA. OCCUPATIONAL HISTORY: The patient is retired. 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 She did not have any significant exposures to dust, fumes or chemicals. REVIEW OF SYSTEMS: The patient's energy level has been a little lower than normal. Denies headache or dizziness. She does not snore, but she used to snore loudly before getting CPAP. She denies problems with her sleep. She had an episode of chest pain within the past week that was feeling like reflux. She was taking some reflux medicines for a few days and this was atypical for her. On one day, she had some pain in the right upper chest into the shoulder. This was short lived. She has marked urinary frequency. She feels she has a hyperactive bladder. CURRENT MEDICATIONS: 1. Ceftriaxone 1 g daily. 2. Azithromycin 500 mg daily. 3. Amlodipine 2.5 mg daily. 4. Ascorbic acid 500 mg daily. 5. Colestid 1 g b.i.d. 6. Lovenox 40 mg subQ daily. 7. NovoLog. 8. HCTZ 25 mg daily. 9. Losartan 100 mg daily. 10. Multivitamins. 11. Oxybutynin 15 mg daily. 12. Potassium 20 mEq daily. 13. Levalbuterol p.r.n. 14. Glucagon p.r.n. PHYSICAL EXAMINATION: GENERAL: The patient is a very pleasant 58-year-old female, who was cooperative, alert and oriented. She was in no distress at rest. VITAL SIGNS: Current temperature is 36.4. Maximum temperature 38.1 and this occurred at 2:00 this morning. HEENT: Pupils were reactive to light. Nares were clear. The patient has a very high pitched voice, which she states is normal. Mouth exam shows a Mallampati grade 3 pharynx. No erythema or exudate was noted. NECK: She has a large neck. No definite adenopathy was palpated. HEART: Heart rate was 100 per minute. Rhythm was regular. Blood pressure 126/76. Pressure was much higher when she first came in at 160/77. LUNGS: Auscultation of the lung silver revealed good breath sounds throughout. Very slight rales were heard posteriorly bilaterally. No wheezes heard. No rhonchi heard. Respiratory rate 18. Saturations 91% on a nasal cannula. ABDOMEN: Obese. Bowel sounds were mildly decreased, but were present. There was no tenderness to palpation, masses, or organomegaly. EXTREMITIES: Showed no cyanosis, clubbing or edema. LABORATORY DATA: White count this morning is 13.03. Hemoglobin 10.8. Platelets 221,000. The neutrophil percent is 27.9, which would be low. Lymphocytes 10.8. Reactive lymphs 59.5. Monocytes 1.8. She did have CBC done on 12/02/2018 and white count then was 9.81. On the , CBC was done. The differential at that time showed 31.3 neutrophils, 7 lymphs, 55.6 reactive lymphs, 5.2 monos. Coags were not done. Electrolytes show sodium 138, potassium 3.7, chloride 104, bicarb 27. BUN is 11 with creatinine 0.93. Blood sugars today have been low, ranging from 52-59 and then ultimately 84. She did not have symptoms of hypoglycemia she states when these were low. Calcium level is 8.1. Total bilirubin elevated at 2.3. AST is 152. Yesterday it was 175. ALT today 208 and yesterday it was 232. Alk phos is 335 today and yesterday it was 364. Urinalysis was unremarkable. [place] screen was reported as positive. Flow cytometry is pending. EKG showed a sinus tachycardia with a rate of 113. Mild nonspecific ST and T-wave changes seen. IMPRESSION: 1. Pneumonia involving the lingula. 2. Atelectatic changes at both lung bases. 3. Mild mediastinal adenopathy with cervical and axillary adenopathy reported as well, although nonpalpable. 4. Abnormal liver function tests. 5. Increased reactive lymphocytes. 6. Obstructive sleep apnea - on nasal CPAP at home. COMMENTS AND RECOMMENDATIONS: The patient is being treated as if she had pneumonia with ceftriaxone and azithromycin. Would check urinary antigen for legionella. I believe serum amylase and lipase should be checked. She states her was ill recently with something similar and he was found to have elevated pancreatic enzymes. Would check an INR in light of the elevated liver function test. Would check a sed rate. The patient's father reportedly had something rare from a pulmonary perspective, but she did not know what it was. I will try to verify what problem he had exactly. I am doubtful at present that this is related. Thank you very much for asking me to assist in her care.
--- NOTE | 2018-12-05 14:48 | Hospitalist Progress Note ---
Date of Service December 05, 2018 Assessment & Plan (1) Pneumonia: Ms. Auguste is a 58-year-old woman with a history of diabetes mellitus, hypertension, urinary urgency who presents to the emergency department due to a 10-day history of feeling unwell, with a dry cough, worsening shortness of breath and night sweats. She is found to have a low-grade fever here, sinus tachycardia, and a leukocytosis with predominantly a lymphocytosis. Also with elevated LFTs and no abdominal pain. Chest x-ray later chest CT showed possible atelectasis versus infiltrate in the lingula and bibasilar regions Monospot is positive -Continue telemetry monitoring -Patient meets criteria for sepsis with fever, elevated resp rate, elevated white cell count and pulmonary source of infection plus likely infectious mononucleosis as the source -Blood cultures-no growth to date -Patient underwent CTA of chest given patient was persistently tachycardic -> no pulmonary embolism noted. Patient has left lingular consolidation, as well as patchy bilateral scarring. Of note, patient also had prominent mediastinal, hilar and axillary lymph nodes, as well as splenomegaly & b/l thyroid nodules Most likely with infectious mononucleosis given lymphocytosis, elevated LFTs, splenomegaly, and lymphadenopathy -Peripheral smear ordered, as well as flow cytometry to evaluate for for proliferative disorder -Appreciate pulmonary consult-agrees with continuing antibiotics with ceftriaxone and I added azithromycin today to cover for community-acquired pneumonia -duonebs ordered prn -currently on 2L via nasal cannula, wean as tolerated -600mg ibuprofen ordered q8h prn pain/fever -Continue IV fluids -Consult infectious disease for further recommendations Transaminitis likely secondary to infectious mononucleosis in the setting of known hepatic steatosis Hepatitis panel negative Checking CMV, EBV CT abdomen/pelvis is pending -LFTs were checked in October 2018, and she only had mild elevation of the ALT and AST - 66 and 43 respectively. Her alkaline phosphatase and bilirubin were both normal at this time. She had another CMP done on December 02 which showed ALT of 247, AST of 147 alk phos of 310 and total bilirubin 1.3. Her LFTs have continued to worsen-she has an ALT of 232, AST of 175, alkaline phosphatase of 364 and a total bilirubin of 2.4 on admission all of which are slightly improved today. -She had a biliary ultrasound done on 03/28 which showed hepatic steatosis and mild hepatomegaly. Diabetes Mellitus type II with hypoglycemia-given orange juice this morning -Hold home metformin and glimepiride -Blood sugar checks AC/HS and placed on insulin sliding scale Hypertension -Continue home amlodipine, losartan and hydrochlorothiazide -Continue home potassium supplementation Urinary urgency-UA negative recently for infection and no new symptoms -Continue home oxybutynin s/p Cholecystectomy -continue home colestipol Code status: Full, no mechanical ventilation as per discussion with patient DVT prophylaxis: Lovenox every 24 hours Disposition: Continue telemetry (2) Mononucleosis, infectious, with hepatitis: (3) Hypertension: (4) Diabetes mellitus: (5) Splenomegaly: (6) Lymphadenopathy: (7) Shortness of breath: (8) Liver enzyme elevation: (9) GERD (gastroesophageal reflux disease): (10) DVT prophylaxis: (11) Acute respiratory failure with hypoxia: Subjective Patient still feeling fatigued and has a mild cough but overall little improved. Denies abdominal pain or dysuria but has chronic urinary urgency. Denies chest pain or shortness of breath but remains on oxygen. Denies headache or lightheadedness. No nausea or vomiting, no diarrhea. No skin rashes or joint pains. Her CT of the abdomen pelvis did not get done yet as ordered this morning Telemetry with normal sinus rhythm with rates in the 80s Discussed her results with her Review of Systems All systems reviewed & are unremarkable except as noted in HPI & below Physical Exam 2 Vital Signs (Past 24 Hours): Last Vital Signs Temp 37.3 C 12/05/18 11:35 Pulse 105 H 12/05/18 11:35 Resp 18 12/05/18 11:35 BP 113/69 12/05/18 11:35 Pulse Ox 92 12/05/18 11:35 Constitutional: WD/WN, vitals as above Eyes: PERRL, conjunctivae normal, anicteric sclerae ENMT: external ear and nose normal, oropharynx normal Neck: trachea midline, no thyromegaly Respiratory: normal respiratory effort, lungs clear to auscultation Cardiovascular: RRR, no murmur, no edema Gastrointestinal (Abdomen): normal bowel sounds, soft, nontender, no hepatosplenomegaly Musculoskeletal: Extremities: extremities normal to inspection; no cyanosis and no clubbing Skin: no rashes, warm and dry Neurologic: moves all extremities and awake; no focal motor deficits Psychiatric: A+Ox3, euthymic affect Results & Data Laboratory Results 12/06/18 12/06/18 12/06/18 Range/Units 05:49 05:49 05:49 WBC 13.50 H (4.8-10.8) K/uL RBC 3.58 L (4.2-5.4) M/uL Hgb 10.9 L (12.0-16.0) g/dL Hct 32.0 L (37-47) % MCV 89.4 (80-100) fL MCH 30.4 (25-34) pg MCHC 34.1 (32-36) g/dL RDW Std Deviation 49.0 H (36.4-46.3) fL RDW Coeff of Benjamin 14.9 H (11.5-14.5) % Plt Count 225 (130-400) K/uL MPV 11.1 H (7.4-10.4) fL Absolute Nucleated RBC 0.08 H (0-0) K/uL Nucleated RBC % (auto) 0.6 % Neutrophils % (Manual) 30.0 % Band Neutrophils % 0.0 % Lymphocytes % (Manual) 48.0 % Prolymphocyte % 0.0 % Reactive Lymphs % (Man) 15.0 % Monocytes % (Manual) 7.0 % Eosinophils % (Manual) 0.0 % Basophils % (Manual) 0.0 % Metamyelocytes % (Man) 0.0 % Myelocytes % (Man) 0.0 % Promyelocytes % (Man) 0.0 % Blast Cells % (Manual) 0.0 % Plasma Cell % (Manual) 0.0 % Other Cells % 0.0 % Neutrophils # (Manual) 4.05 (1.4-6.5) K/uL Total Absolute Neuts 4.05 (1.4-6.5) K/uL Lymphocytes # (Manual) 6.48 H (1.2-3.4) K/uL Reactive Lymphs # 2.03 K/uL Total Abs Lymphocytes 8.51 H (1.2-3.4) K/uL Monocytes # (Manual) 0.95 H (0.11-0.59) K/uL Large Granular Lymphs 0.0 % ESR (0-21) mm/hr PT (9.0-12.0) Seconds INR (0.9-1.1) Sodium 133 L (136-145) mmol/L Potassium 3.8 (3.5-5.1) mmol/L Chloride 99 (98-107) mmol/L Carbon Dioxide 25 (21-32) mmol/L Anion Gap 9.0 (3-11) BUN 9 (7-18) mg/dl Creatinine 0.87 (0.6-1.2) mg/dl Est Cr Clr Drug Dosing 79.6 ml/min Est GFR ( Amer) 83.9 Est GFR (Non-Af Amer) 72.4 BUN/Creatinine Ratio 10.3 (10-20) Glucose 73 (70-99) mg/dl POC Glucose (70-99) Calcium 8.2 L (8.5-10.1) mg/dl Total Bilirubin 2.4 H (0.2-1) mg/dl Direct Bilirubin 1.9 H (0-0.2) mg/dl AST 154 H (15-37) U/L ALT 193 H (12-78) U/L Alkaline Phosphatase 356 H (45-117) U/L Total Protein 8.2 (6.4-8.2) gm/dl Albumin 2.7 L (3.4-5.0) gm/dl Amylase (25-115) U/L Lipase (73-393) U/L EBV Capsid Ag IgG Ab Pending EBV Capsid Ag IgM Ab Pending EBV EA Restrict+Diffuse Pending EBV Nuclear Antigen Ab Pending Hep Bs Antigen (Neg) Hepatitis C Antibody (Neg) Urine Legionella Ag 12/05/18 12/05/18 12/05/18 Range/Units 20:44 16:27 14:59 WBC (4.8-10.8) K/uL RBC (4.2-5.4) M/uL Hgb (12.0-16.0) g/dL Hct (37-47) % MCV (80-100) fL MCH (25-34) pg MCHC (32-36) g/dL RDW Std Deviation (36.4-46.3) fL RDW Coeff of Benjamin (11.5-14.5) % Plt Count (130-400) K/uL MPV (7.4-10.4) fL Absolute Nucleated RBC (0-0) K/uL Nucleated RBC % (auto) % Neutrophils % (Manual) % Band Neutrophils % % Lymphocytes % (Manual) % Prolymphocyte % % Reactive Lymphs % (Man) % Monocytes % (Manual) % Eosinophils % (Manual) % Basophils % (Manual) % Metamyelocytes % (Man) % Myelocytes % (Man) % Promyelocytes % (Man) % Blast Cells % (Manual) % Plasma Cell % (Manual) % Other Cells % % Neutrophils # (Manual) (1.4-6.5) K/uL Total Absolute Neuts (1.4-6.5) K/uL Lymphocytes # (Manual) (1.2-3.4) K/uL Reactive Lymphs # K/uL Total Abs Lymphocytes (1.2-3.4) K/uL Monocytes # (Manual) (0.11-0.59) K/uL Large Granular Lymphs % ESR (0-21) mm/hr PT (9.0-12.0) Seconds INR (0.9-1.1) Sodium (136-145) mmol/L Potassium (3.5-5.1) mmol/L Chloride (98-107) mmol/L Carbon Dioxide (21-32) mmol/L Anion Gap (3-11) BUN (7-18) mg/dl Creatinine (0.6-1.2) mg/dl Est Cr Clr Drug Dosing ml/min Est GFR ( Amer) Est GFR (Non-Af Amer) BUN/Creatinine Ratio (10-20) Glucose (70-99) mg/dl POC Glucose 158 H 101 H (70-99) Calcium (8.5-10.1) mg/dl Total Bilirubin (0.2-1) mg/dl Direct Bilirubin (0-0.2) mg/dl AST (15-37) U/L ALT (12-78) U/L Alkaline Phosphatase (45-117) U/L Total Protein (6.4-8.2) gm/dl Albumin (3.4-5.0) gm/dl Amylase (25-115) U/L Lipase (73-393) U/L EBV Capsid Ag IgG Ab EBV Capsid Ag IgM Ab EBV EA Restrict+Diffuse EBV Nuclear Antigen Ab Hep Bs Antigen (Neg) Hepatitis C Antibody (Neg) Urine Legionella Ag Pending 12/05/18 12/05/18 12/05/18 Range/Units 11:41 10:54 10:54 WBC (4.8-10.8) K/uL RBC (4.2-5.4) M/uL Hgb (12.0-16.0) g/dL Hct (37-47) % MCV (80-100) fL MCH (25-34) pg MCHC (32-36) g/dL RDW Std Deviation (36.4-46.3) fL RDW Coeff of Benjamin (11.5-14.5) % Plt Count (130-400) K/uL MPV (7.4-10.4) fL Absolute Nucleated RBC (0-0) K/uL Nucleated RBC % (auto) % Neutrophils % (Manual) % Band Neutrophils % % Lymphocytes % (Manual) % Prolymphocyte % % Reactive Lymphs % (Man) % Monocytes % (Manual) % Eosinophils % (Manual) % Basophils % (Manual) % Metamyelocytes % (Man) % Myelocytes % (Man) % Promyelocytes % (Man) % Blast Cells % (Manual) % Plasma Cell % (Manual) % Other Cells % % Neutrophils # (Manual) (1.4-6.5) K/uL Total Absolute Neuts (1.4-6.5) K/uL Lymphocytes # (Manual) (1.2-3.4) K/uL Reactive Lymphs # K/uL Total Abs Lymphocytes (1.2-3.4) K/uL Monocytes # (Manual) (0.11-0.59) K/uL Large Granular Lymphs % ESR 64 H (0-21) mm/hr PT 11.6 (9.0-12.0) Seconds INR 1.1 (0.9-1.1) Sodium (136-145) mmol/L Potassium (3.5-5.1) mmol/L Chloride (98-107) mmol/L Carbon Dioxide (21-32) mmol/L Anion Gap (3-11) BUN (7-18) mg/dl Creatinine (0.6-1.2) mg/dl Est Cr Clr Drug Dosing ml/min Est GFR ( Amer) Est GFR (Non-Af Amer) BUN/Creatinine Ratio (10-20) Glucose (70-99) mg/dl POC Glucose 175 H (70-99) Calcium (8.5-10.1) mg/dl Total Bilirubin (0.2-1) mg/dl Direct Bilirubin (0-0.2) mg/dl AST (15-37) U/L ALT (12-78) U/L Alkaline Phosphatase (45-117) U/L Total Protein (6.4-8.2) gm/dl Albumin (3.4-5.0) gm/dl Amylase (25-115) U/L Lipase (73-393) U/L EBV Capsid Ag IgG Ab EBV Capsid Ag IgM Ab EBV EA Restrict+Diffuse EBV Nuclear Antigen Ab Hep Bs Antigen (Neg) Hepatitis C Antibody (Neg) Urine Legionella Ag 12/05/18 12/05/18 12/05/18 Range/Units 10:54 07:57 07:35 WBC (4.8-10.8) K/uL RBC (4.2-5.4) M/uL Hgb (12.0-16.0) g/dL Hct (37-47) % MCV (80-100) fL MCH (25-34) pg MCHC (32-36) g/dL RDW Std Deviation (36.4-46.3) fL RDW Coeff of Benjamin (11.5-14.5) % Plt Count (130-400) K/uL MPV (7.4-10.4) fL Absolute Nucleated RBC (0-0) K/uL Nucleated RBC % (auto) % Neutrophils % (Manual) % Band Neutrophils % % Lymphocytes % (Manual) % Prolymphocyte % % Reactive Lymphs % (Man) % Monocytes % (Manual) % Eosinophils % (Manual) % Basophils % (Manual) % Metamyelocytes % (Man) % Myelocytes % (Man) % Promyelocytes % (Man) % Blast Cells % (Manual) % Plasma Cell % (Manual) % Other Cells % % Neutrophils # (Manual) (1.4-6.5) K/uL Total Absolute Neuts (1.4-6.5) K/uL Lymphocytes # (Manual) (1.2-3.4) K/uL Reactive Lymphs # K/uL Total Abs Lymphocytes (1.2-3.4) K/uL Monocytes # (Manual) (0.11-0.59) K/uL Large Granular Lymphs % ESR (0-21) mm/hr PT (9.0-12.0) Seconds INR (0.9-1.1) Sodium (136-145) mmol/L Potassium (3.5-5.1) mmol/L Chloride (98-107) mmol/L Carbon Dioxide (21-32) mmol/L Anion Gap (3-11) BUN (7-18) mg/dl Creatinine (0.6-1.2) mg/dl Est Cr Clr Drug Dosing ml/min Est GFR ( Amer) Est GFR (Non-Af Amer) BUN/Creatinine Ratio (10-20) Glucose (70-99) mg/dl POC Glucose 84 58 L* (70-99) Calcium (8.5-10.1) mg/dl Total Bilirubin (0.2-1) mg/dl Direct Bilirubin (0-0.2) mg/dl AST (15-37) U/L ALT (12-78) U/L Alkaline Phosphatase (45-117) U/L Total Protein (6.4-8.2) gm/dl Albumin (3.4-5.0) gm/dl Amylase 30 (25-115) U/L Lipase 128 (73-393) U/L EBV Capsid Ag IgG Ab EBV Capsid Ag IgM Ab EBV EA Restrict+Diffuse EBV Nuclear Antigen Ab Hep Bs Antigen (Neg) Hepatitis C Antibody (Neg) Urine Legionella Ag 12/05/18 12/05/18 12/05/18 Range/Units 07:18 07:17 06:02 WBC (4.8-10.8) K/uL RBC (4.2-5.4) M/uL Hgb (12.0-16.0) g/dL Hct (37-47) % MCV (80-100) fL MCH (25-34) pg MCHC (32-36) g/dL RDW Std Deviation (36.4-46.3) fL RDW Coeff of Benjamin (11.5-14.5) % Plt Count (130-400) K/uL MPV (7.4-10.4) fL Absolute Nucleated RBC (0-0) K/uL Nucleated RBC % (auto) % Neutrophils % (Manual) % Band Neutrophils % % Lymphocytes % (Manual) % Prolymphocyte % % Reactive Lymphs % (Man) % Monocytes % (Manual) % Eosinophils % (Manual) % Basophils % (Manual) % Metamyelocytes % (Man) % Myelocytes % (Man) % Promyelocytes % (Man) % Blast Cells % (Manual) % Plasma Cell % (Manual) % Other Cells % % Neutrophils # (Manual) (1.4-6.5) K/uL Total Absolute Neuts (1.4-6.5) K/uL Lymphocytes # (Manual) (1.2-3.4) K/uL Reactive Lymphs # K/uL Total Abs Lymphocytes (1.2-3.4) K/uL Monocytes # (Manual) (0.11-0.59) K/uL Large Granular Lymphs % ESR (0-21) mm/hr PT (9.0-12.0) Seconds INR (0.9-1.1) Sodium (136-145) mmol/L Potassium (3.5-5.1) mmol/L Chloride (98-107) mmol/L Carbon Dioxide (21-32) mmol/L Anion Gap (3-11) BUN (7-18) mg/dl Creatinine (0.6-1.2) mg/dl Est Cr Clr Drug Dosing ml/min Est GFR ( Amer) Est GFR (Non-Af Amer) BUN/Creatinine Ratio (10-20) Glucose (70-99) mg/dl POC Glucose 59 L* 57 L* (70-99) Calcium (8.5-10.1) mg/dl Total Bilirubin (0.2-1) mg/dl Direct Bilirubin (0-0.2) mg/dl AST (15-37) U/L ALT (12-78) U/L Alkaline Phosphatase (45-117) U/L Total Protein (6.4-8.2) gm/dl Albumin (3.4-5.0) gm/dl Amylase (25-115) U/L Lipase (73-393) U/L EBV Capsid Ag IgG Ab EBV Capsid Ag IgM Ab EBV EA Restrict+Diffuse EBV Nuclear Antigen Ab Hep Bs Antigen Neg (Neg) Hepatitis C Antibody Neg (Neg) Urine Legionella Ag _ (1) Pneumonia Aspiration pneumonia type: Laterality: Lung location: Pneumonia type:
--- NOTE | 2018-12-05 15:12 | Infectious Disease Consult ---
Date of Consultation December 05, 2018 Assessment & Plan (1) Mononucleosis, infectious, with hepatitis: 58-year-old female with acute febrile illness with lymphocytosis with elevated liver enzymes, lymphadenopathy, splenomegaly, and positive Monospot. Certainly clinical picture consistent with diagnosis of Joe-Levi associated mononucleosis although patient certainly far above usual age for this infection. CMV infection can present with identical picture. Also must consider the possibility of lymphoproliferative disorder. Serologies for CMV and EBV are pending, and would obtain PCR studies of blood for both viruses. Await further culture results and Legionella studies. Will follow. History of Present Illness Reason for Consultation: Suspect infectious mononucleosis Attending Physician: Gudelia Hester MD History of Present Illness 58-year-old female with history of diabetes mellitus, hypertension, GERD, who was well until approximately 5 days prior to admission when she developed onset of fever, chills, with weakness, fatigue, severe dry mouth, and dry hacking cough. She was given doxycycline without improvement. She became progressively more debilitated and eventually came to the hospital and was admitted for further management. She has been found to have lymphocytosis, elevated liver enzymes, and CT scan with mediastinal, hilar, and axillary lymphadenopathy along with probable splenomegaly. She was started empirically on ceftriaxone and azithromycin. Monospot is positive. EBV and CMV serologies are pending. Legionella studies pending. Of note is that her was hospitalized a little more than 1 month ago with what was thought to be viral induced pancreatitis. No other significant travel or exposure history. Allergies Allergy/AdvReac Type Severity Reaction Status Date / Time latex Allergy Intermediate RASH. Verified 12/04/18 22:48 adhesive Allergy Unknown LOCAL RASH Verified 12/04/18 22:48 fluconazole Allergy Unknown RASH ALL Verified 12/04/18 22:48 OVER BODY Sulfa (Sulfonamide Allergy Unknown BLISTERS Verified 12/04/18 22:48 Antibiotics) IN MOUTH Home Medications Home Medications Medication Instructions Recorded Confirmed Type Lactobacillus acidophilus 460 mg PO DAILY 12/04/18 12/04/18 History [Florajen] amlodipine 2.5 mg PO DAILY 12/04/18 12/04/18 History ascorbic acid (vitamin C) [Vitamin 500 mg PO DAILY 12/04/18 12/04/18 History C] colestipol 1 g PO BID 12/04/18 12/04/18 History glimepiride 4 mg PO QAM 12/04/18 12/04/18 History hydrochlorothiazide 25 mg PO DAILY 12/04/18 12/04/18 History losartan 100 mg PO DAILY 12/04/18 12/04/18 History metformin 500 mg PO BID 12/04/18 12/04/18 History multivitamin 1 tab PO DAILY 12/04/18 12/04/18 History oxybutynin chloride 15 mg PO DAILY 12/04/18 12/04/18 History potassium chloride [Klor-Con M20] 20 meq PO DAILY 12/04/18 12/04/18 History Patient History Medical History History of pneumonia GERD (gastroesophageal reflux disease) Social History Current Living Situation: Spouse Feels Safe at Home: Yes Safety Concerns: Feels Safe At This Time Smoking Status: Never smoker Hx Alcohol Use: No Hx Substance Use: No Beliefs That Will Affect Care: None Preferred Language: Indonesian Communication Ability: Effective 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 Review of Systems All systems were reviewed and are negative except as per HPI Physical Exam 2 Vital Signs (Past 24 Hours): Last Vital Signs Temp 37.3 C 12/05/18 11:35 Pulse 105 H 12/05/18 11:35 Resp 18 12/05/18 11:35 BP 113/69 12/05/18 11:35 Pulse Ox 92 12/05/18 11:35 Constitutional: WD/WN, vitals as above comfortable; no acute distress Eyes: PERRL, conjunctivae normal, anicteric sclerae ENMT: external ear and nose normal, oropharynx normal Neck: trachea midline, no thyromegaly neck nontender Respiratory: normal respiratory effort, lungs clear to auscultation normal percussion; does not use accessory muscles Cardiovascular: Rate/Rhythm: regular rate and regular rhythm Heart Sounds: normal S1 and normal S2; no gallop, no murmur and no cardiac rub Vessels: normal peripheral pulses; no JVD Gastrointestinal (Abdomen): normal bowel sounds, soft, nontender, no hepatosplenomegaly Musculoskeletal: no cyanosis or clubbing, extremities motor strength 5/5 Spine: thoracic spine normal to inspection and lumbar spine normal to inspection ; no cervical spinal tenderness Skin: no rashes, warm and dry normal turgor; no lesions Neurologic: patellar DTR's 2+ bilat, sensation intact no focal motor deficits Psychiatric: A+Ox3, euthymic affect Orientation: cooperative Lymphatic: no cervical or axillary lymphadenopathy no inguinal lymphadenopathy Results & Data Laboratory Results Laboratory Results - last 48 hr 12/04/18 12/04/18 12/04/18 21:24 22:39 22:39 WBC 12.24 H RBC 3.78 L Hgb 11.5 L Hct 33.5 L MCV 88.6 MCH 30.4 MCHC 34.3 RDW Std Deviation 48.1 H RDW Coeff of Benjamin 14.8 H Plt Count 234 MPV 11.4 H Absolute Nucleated RBC Nucleated RBC % (auto) Neutrophils % (Manual) 31.3 Lymphocytes % (Manual) 7.0 Reactive Lymphs % (Man) 55.6 Monocytes % (Manual) 5.2 Myelocytes % (Man) 0.9 Neutrophils # (Manual) 3.83 Total Absolute Neuts 3.83 Lymphocytes # (Manual) 0.86 L Reactive Lymphs # 6.81 Total Abs Lymphocytes 7.66 H Monocytes # (Manual) 0.64 H Myelocytes # (Manual) 0.11 H Toxic Vacuolation Occasional RBC Morphology Peripher Smr Path Cons ESR PT Cancelled INR Cancelled APTT Cancelled PTT Ratio Cancelled Sodium Potassium Chloride Carbon Dioxide Anion Gap BUN Creatinine Est Cr Clr Drug Dosing Est GFR ( Amer) Est GFR (Non-Af Amer) BUN/Creatinine Ratio Glucose POC Glucose Lactate Calcium Magnesium Total Bilirubin AST ALT Alkaline Phosphatase Troponin I Total Protein Albumin Globulin Albumin/Globulin Ratio Amylase Lipase Hep Bs Antigen Hepatitis C Antibody Monoscreen Influenza Type A Ag Neg for Influ A Influenza Type B Ag Neg for Influ B 12/04/18 12/04/18 12/05/18 22:39 23:07 06:02 WBC 13.03 H RBC 3.56 L Hgb 10.8 L Hct 31.7 L MCV 89.0 MCH 30.3 MCHC 34.1 RDW Std Deviation 48.3 H RDW Coeff of Benjamin 14.7 H Plt Count 221 MPV 10.9 H Absolute Nucleated RBC 0.06 H Nucleated RBC % (auto) 0.4 Neutrophils % (Manual) 27.9 Lymphocytes % (Manual) 10.8 Reactive Lymphs % (Man) 59.5 Monocytes % (Manual) 1.8 Myelocytes % (Man) Neutrophils # (Manual) 3.64 Total Absolute Neuts 3.64 Lymphocytes # (Manual) 1.41 Reactive Lymphs # 7.75 Total Abs Lymphocytes 9.16 H Monocytes # (Manual) 0.23 Myelocytes # (Manual) Toxic Vacuolation RBC Morphology Unremarkable Peripher Smr Path Cons ESR PT INR APTT PTT Ratio Sodium 134 L Potassium 3.9 Chloride 99 Carbon Dioxide 25 Anion Gap 10.0 BUN 13 Creatinine 0.93 Est Cr Clr Drug Dosing 74.7 Est GFR ( Amer) 77.4 Est GFR (Non-Af Amer) 66.8 BUN/Creatinine Ratio 14.3 Glucose 91 POC Glucose Lactate 2.0 Calcium 8.8 Magnesium 1.9 Total Bilirubin 2.4 H AST 175 H ALT 232 H Alkaline Phosphatase 364 H Troponin I < 0.015 Total Protein 8.4 H Albumin 3.0 L Globulin 5.4 H Albumin/Globulin Ratio 0.6 L Amylase Lipase Hep Bs Antigen Hepatitis C Antibody Monoscreen Influenza Type A Ag Influenza Type B Ag 12/05/18 12/05/18 12/05/18 06:02 06:02 06:02 WBC RBC Hgb Hct MCV MCH MCHC RDW Std Deviation RDW Coeff of Benjamin Plt Count MPV Absolute Nucleated RBC Nucleated RBC % (auto) Neutrophils % (Manual) Lymphocytes % (Manual) Reactive Lymphs % (Man) Monocytes % (Manual) Myelocytes % (Man) Neutrophils # (Manual) Total Absolute Neuts Lymphocytes # (Manual) Reactive Lymphs # Total Abs Lymphocytes Monocytes # (Manual) Myelocytes # (Manual) Toxic Vacuolation RBC Morphology Peripher Smr Path Cons ESR PT INR APTT PTT Ratio Sodium 138 Potassium 3.7 Chloride 104 Carbon Dioxide 27 Anion Gap 7.0 BUN 11 Creatinine 0.93 Est Cr Clr Drug Dosing 74.6 Est GFR ( Amer) 77.4 Est GFR (Non-Af Amer) 66.8 BUN/Creatinine Ratio 11.5 Glucose 52 L* POC Glucose Lactate Calcium 8.1 L Magnesium Total Bilirubin 2.3 H AST 152 H ALT 208 H Alkaline Phosphatase 335 H Troponin I Total Protein 8.0 Albumin 2.7 L Globulin 5.3 H Albumin/Globulin Ratio 0.5 L Amylase Lipase Hep Bs Antigen Neg Hepatitis C Antibody Neg Monoscreen Positive H Influenza Type A Ag Influenza Type B Ag 02/25/19 02/25/19 02/25/19 07:17 07:18 07:35 WBC RBC Hgb Hct MCV MCH MCHC RDW Std Deviation RDW Coeff of Benjamin Plt Count MPV Absolute Nucleated RBC Nucleated RBC % (auto) Neutrophils % (Manual) Lymphocytes % (Manual) Reactive Lymphs % (Man) Monocytes % (Manual) Myelocytes % (Man) Neutrophils # (Manual) Total Absolute Neuts Lymphocytes # (Manual) Reactive Lymphs # Total Abs Lymphocytes Monocytes # (Manual) Myelocytes # (Manual) Toxic Vacuolation RBC Morphology Peripher Smr Path Cons ESR PT INR APTT PTT Ratio Sodium Potassium Chloride Carbon Dioxide Anion Gap BUN Creatinine Est Cr Clr Drug Dosing Est GFR ( Amer) Est GFR (Non-Af Amer) BUN/Creatinine Ratio Glucose POC Glucose 57 L* 59 L* 58 L* Lactate Calcium Magnesium Total Bilirubin AST ALT Alkaline Phosphatase Troponin I Total Protein Albumin Globulin Albumin/Globulin Ratio Amylase Lipase Hep Bs Antigen Hepatitis C Antibody Monoscreen Influenza Type A Ag Influenza Type B Ag 12/05/18 12/05/18 12/05/18 07:57 10:54 10:54 WBC RBC Hgb Hct MCV MCH MCHC RDW Std Deviation RDW Coeff of Benjamin Plt Count MPV Absolute Nucleated RBC Nucleated RBC % (auto) Neutrophils % (Manual) Lymphocytes % (Manual) Reactive Lymphs % (Man) Monocytes % (Manual) Myelocytes % (Man) Neutrophils # (Manual) Total Absolute Neuts Lymphocytes # (Manual) Reactive Lymphs # Total Abs Lymphocytes Monocytes # (Manual) Myelocytes # (Manual) Toxic Vacuolation RBC Morphology Peripher Smr Path Cons ESR 64 H PT INR APTT PTT Ratio Sodium Potassium Chloride Carbon Dioxide Anion Gap BUN Creatinine Est Cr Clr Drug Dosing Est GFR ( Amer) Est GFR (Non-Af Amer) BUN/Creatinine Ratio Glucose POC Glucose 84 Lactate Calcium Magnesium Total Bilirubin AST ALT Alkaline Phosphatase Troponin I Total Protein Albumin Globulin Albumin/Globulin Ratio Amylase 30 Lipase 128 Hep Bs Antigen Hepatitis C Antibody Monoscreen Influenza Type A Ag Influenza Type B Ag 12/05/18 12/05/18 10:54 11:41 WBC RBC Hgb Hct MCV MCH MCHC RDW Std Deviation RDW Coeff of Benjamin Plt Count MPV Absolute Nucleated RBC Nucleated RBC % (auto) Neutrophils % (Manual) Lymphocytes % (Manual) Reactive Lymphs % (Man) Monocytes % (Manual) Myelocytes % (Man) Neutrophils # (Manual) Total Absolute Neuts Lymphocytes # (Manual) Reactive Lymphs # Total Abs Lymphocytes Monocytes # (Manual) Myelocytes # (Manual) Toxic Vacuolation RBC Morphology Peripher Smr Path Cons ESR PT 11.6 INR 1.1 APTT PTT Ratio Sodium Potassium Chloride Carbon Dioxide Anion Gap BUN Creatinine Est Cr Clr Drug Dosing Est GFR ( Amer) Est GFR (Non-Af Amer) BUN/Creatinine Ratio Glucose POC Glucose 175 H Lactate Calcium Magnesium Total Bilirubin AST ALT Alkaline Phosphatase Troponin I Total Protein Albumin Globulin Albumin/Globulin Ratio Amylase Lipase Hep Bs Antigen Hepatitis C Antibody Monoscreen Influenza Type A Ag Influenza Type B Ag Diagnostic Findings Name: MUSA VELÁSQUEZ Acct: [id number] Status: ADM IN : 1960 Svc Date: Age: 58 Sex: F Dis Date: Loc: [address]/Bed: N284-2 Spec: [id number] Collected: 12/04/18 Received: 12/04/[address]: Andrés Pan M.D. Copy To: PCP,NO Source: Blood OV Order: Ordered: Blood Culture Comments: Comment Default is separate sites, same time Procedure Result Verified Site Blood Culture PENDING Name: MUSA VELÁSQUEZ : 1960 PAGE 1 Printed: 12/05/[address] ANGIOGRAM OF THE CHEST CLINICAL HISTORY: Shortness of breath. Possible pulmonary embolism. COMPARISON STUDY: Chest x-ray dated 12/04/2018 TECHNIQUE: Following the IV administration of 107 mL of Optiray-320, CT angiogram of the thorax was performed from the thoracic inlet to the lung bases utilizing the pulmonary embolus protocol. Images are reviewed in the axial, sagittal, and coronal planes. IV contrast was administered without complication. MIP imaging was performed. A dose lowering technique was utilized adhering to the principles of ALARA. CT DOSE: 543.90 mGy.cm FINDINGS: There is a multinodular thyroid gland. There is mild hepatic steatosis. There is suspected splenomegaly. There are mildly enlarged bilateral axillary lymph nodes. There are mildly enlarged mediastinal lymph nodes with a 16 mm subcarinal node. Hilar lymph nodes are the upper limits of normal in size. There are mildly enlarged lower cervical lymph nodes. There was no evidence of thoracic aortic dilatation. There were no pulmonary artery filling defects to indicate acute pulmonary embolism. No pleural effusions are visualized. There are linear parenchymal opacities within the lingula right middle lobe and both lung bases statistically atelectatic. IMPRESSION: 1. No evidence of acute pulmonary embolism 2. Mild cervical, mediastinal and axillary lymphadenopathy. An underlying lymphoproliferative disorder cannot be excluded. 3. Multinodular thyroid gland 4. Mild hepatic steatosis and possible splenomegaly 5. Basilar opacities statistically atelectatic Electronically signed by: Jayden Medina M.D. 12/05/2018 6:37 AM Dictated: 12/05/18 0631 Transcribed: 12/05/18 0631
[2018-12-06] MEDS ORDERED: IOVERSOL 100ml IV PRN (05:24)
[2018-12-06 06:22] LABS: Hemoglobin 10.9 g/dL (12.0-16.0); Mean Corpuscular Hgb Conc 34.1 g/dL (32-36); Mean Corpuscular Volume 89.4 fL (80-100); Mean Platelet Volume 11.1 fL (7.4-10.4); Nucleated RBC # (auto) 0.08 K/uL (0-0); Nucleated RBC % (auto) 0.6 %; Platelet Count 225 K/uL (130-400); RDW Coefficient of Variation 14.9 % (11.5-14.5); Red Blood Count 3.58 M/uL (4.2-5.4)
[2018-12-06 06:50] LABS: ALC (manual) 8.51 K/uL (1.2-3.4); Lymphocytes # (manual) 6.48 K/uL (1.2-3.4); Monocytes # (manual) 0.95 K/uL (0.11-0.59); Reactive Lymphocytes # (manual) 2.03 K/uL
[2018-12-06 06:51] LABS: Albumin Level 2.7 gm/dl (3.4-5.0); BUN Creatinine Ratio 10.3 (10-20); Calcium 8.2 mg/dl (8.5-10.1); Creatinine Clr Calc Pharmacy 79.6 ml/min; Est GFR (African American) 83.9; Est GFR (Non-African American) 72.4; Potassium 3.8 mmol/L (3.5-5.1)
[2018-12-06 06:54] LABS: Bilirubin Direct 1.9 mg/dl (0-0.2); Bilirubin,Total 2.4 mg/dl (0.2-1); Total Protein 8.2 gm/dl (6.4-8.2)
[2018-12-06] MEDS: cefTRIAXone SODIUM 1,000 MG/50 ML BAG IV SCH (08:15)
--- NOTE | 2018-12-06 08:15 | CT Scan Report ---
CT abd pelvis IV con only CLINICAL HISTORY: 58 years-old Female presenting with elevated lfts, splenomegaly, RUQ pain. TECHNIQUE: Multidetector CT of the abdomen and pelvis was performed after the administration of intra venous contrast. IV contrast: 94 mL of Optiray 320. One or more dose lowering techniques were used co nsistent with the principles of ALARA (as low as reasonably achievable), including automatic exposure control, mA or kV adjustment to individual patient size, and/or use of iterative reconstruction. COMPARISON: Ultrasound from 03/21/2018. CT DOSE (mGy.cm): The estimated cumulative dose is 1364.80 mGy.cm. 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 Lung bases: Normal heart size. No pericardial or pleural effusion. Extensive bibasilar opacities at t he lung bases likely atelectasis. Interlobular septal thickening. Dependent subpleural consolidation likely atelectasis. Liver: Enlarged measuring over 24 cm in maximal sagittal dimension. Density suggestive of hepatic chhaya atosis. No focal lesion. Patent hepatic vasculature. Biliary: No intrahepatic or extrahepatic biliary ductal dilatation. Gallbladder surgically absent. Pancreas: Mild parenchymal atrophy. Spleen: Geographic regions of peripheral hypoperfusion consistent with infarcts. No associated atroph y to suggest chronicity. Splenic artery and vein patent. The spleen is borderline enlarged. Adrenal glands: Normal. Kidneys and ureters: Normal. No hydronephrosis. Bladder: Normal. Pelvic organs: Uterus surgically absent. Bowel: Normal appendix. No bowel obstruction. Peritoneal cavity: Trace interloop fluid in the right lower quadrant associated with small bowel (ser ies 3 image 366). There may be a soft tissue mass, which appears spiculated and has a desmoplastic ef fect on surrounding small bowel loops in the superior pelvis/right lower quadrant (series 3 image 351 ). This measures 1.7 x 1.0 cm. No free intraperitoneal gas. Lymph nodes: Numerous prominent lymph nodes throughout the retroperitoneum, mesentery, pelvis, and in guinal regions. The vast majority of these lymph nodes are subcentimeter with benign morphologies, ho wever, several pathologically enlarged inguinal lymph nodes are evident. An index node in the right i nguinal region measures 12 mm in short axis (series 3 image 392). Vasculature: Aorta and IVC patent and normal in caliber. Abdominal wall: Normal. Musculoskeletal: Degenerative changes of the pubic symphysis, sacroiliac joints, and lower lumbar spi ne. IMPRESSION: 1. Significant diffuse lymphadenopathy though the vast majority of lymph nodes are subcentimeter wit h benign morphologies. Pathologic enlargement of inguinal lymph nodes. Consider ultrasound-guided fin e-needle aspiration of one of the right inguinal lymph nodes. A lymphoproliferative disease cannot be excluded. 2. Findings suspicious for a spiculated mesenteric mass in the superior pelvis with fibrotic/desmopl astic appearance and subtle retractile changes on surrounding small bowel loops. There is trace assoc iated interloop fluid. This appearance could be seen in the setting of an inflammatory mass that the patient has a history of inflammatory bowel disease, mesenteric metastasis in the setting of a small bowel neuroendocrine/carcinoid tumor, sclerosing mesenteritis, or lymphoma. Correlate with the patien t's history. 3. Hepatomegaly and hepatic steatosis. Correlate with liver function tests to exclude steatohepatiti s as a cause for right upper quadrant pain. 4. Borderline splenomegaly with multiple splenic infarcts. This could have either an embolic etiolog y or intrinsic splenic etiology. The report will be called/faxed according to standard departmental protocol. Electronically signed by: Serafin Soto M.D. 12/06/2018 8:14 AM
[2018-12-06] MEDS: AZITHROMYCIN 250 MG TAB PO SCH (08:16)
[2018-12-06] MEDS: hydroCHLOROthiazide 25 MG TAB PO SCH (08:16)
[2018-12-06] MEDS: ASCORBIC ACID 500 MG TAB PO SCH (08:16)
[2018-12-06] MEDS: POTASSIUM CHLORIDE 20 MEQ TABCR PO SCH (08:16)
[2018-12-06] MEDS: AMLODIPINE BESYLATE 5 MG TAB PO SCH (08:16)
[2018-12-06] MEDS: OXYBUTYNIN CHLORIDE XL 5 MG TABCR PO SCH (08:19)
[2018-12-06] MEDS: LOSARTAN POTASSIUM 50 MG TAB PO SCH (08:19)
[2018-12-06] MEDS: MULTIVITAMIN TAB PO SCH (08:19)
[2018-12-06] MEDS: ENOXAPARIN INJ 40 MG/0.4 ML SYR SQ SCH (08:20)
[2018-12-06] MEDS: INSULIN ASPART 100 UNITS/ML 3 ML PEN SC SCH ×4 (08:21→20:57)
[2018-12-06] MEDS: COLESTIPOL HCL 1 GM TAB PO SCH ×2 (10:00→21:05)
--- NOTE | 2018-12-06 13:37 | Hospitalist Progress Note ---
Date of Service December 06, 2018 Assessment & Plan (1) Pneumonia: Ms. Auguste is a 58-year-old woman with a history of diabetes mellitus, hypertension, urinary urgency who presents to the emergency department due to a 10-day history of feeling unwell, with a dry cough, worsening shortness of breath and night sweats. She is found to have a low-grade fever here, sinus tachycardia, and a leukocytosis with predominantly a lymphocytosis. Also with elevated LFTs and no abdominal pain. Chest x-ray later chest CT showed possible atelectasis versus infiltrate in the lingula and bibasilar regions Monospot is positive -No significant events on telemetry -Patient meets criteria for sepsis with fever, elevated resp rate, elevated white cell count and pulmonary source of infection plus likely infectious mononucleosis as the source -Blood cultures-no growth to date -Patient underwent CTA of chest given patient was persistently tachycardic -> no pulmonary embolism noted. Patient has left lingular consolidation, as well as patchy bilateral scarring. Of note, patient also had prominent mediastinal, hilar and axillary lymph nodes, as well as splenomegaly & b/l thyroid nodules Most likely with infectious mononucleosis given lymphocytosis, elevated LFTs, splenomegaly, and lymphadenopathy - flow cytometry without evidence of leukemia however this could miss a T-cell lymphoma as per pathology-it does have a significantly low ratio of CD4 to CD8 -Check HIV in the morning-verbal consent obtained from the patient although pathology reports this CD4 to CD8 low ratio could also be from another viral illness -Continue with ceftriaxone and azithromycin today to cover for community-ac quired pneumonia although probably only needs a total of 5 days -duonebs ordered prn -Is now weaned off oxygen -600mg ibuprofen ordered q8h prn pain/fever -Give another liter of fluid today for dry mouth -Consult infectious disease for further recommendations-appreciated Transaminitis-likely secondary to infectious mononucleosis in the setting of known hepatic steatosis-persists Hepatitis panel negative Checking CMV, EBV if and pending CT abdomen/pelvis with diffuse lymphadenopathy, possible splenic infarcts, and a desmoplastic 1.7 x 1 cm mass in the right lower quadrant of unknown significance in a borderline enlarged spleen -Has had mild elevation of LFTs in the past but then normalized, now elevated and stable from previous, total bili 2.4 She has no abdominal pain at all -She had a biliary ultrasound done on wi 03/28 which showed hepatic steatosis and mild hepatomegaly. CT of the abdomen pelvis here without any evidence of issues except for hepatomegaly Diabetes Mellitus type II with hypoglycemia-improved -Hold home metformin and glimepiride -Blood sugar checks AC/HS and placed on insulin sliding scale Hypertension -Continue home amlodipine, losartan and hydrochlorothiazide -Continue home potassium supplementation Urinary urgency-UA negative recently for infection and no new symptoms -Continue home oxybutynin s/p Cholecystectomy -continue home colestipol Diffuse lymphadenopathy-patient is agreeable to ultrasound-guided FNA of 1 of the larger right inguinal lymph nodes-this is arranged with radiology for tomorrow -With lymphocytosis, diffuse lymphadenopathy, splenomegaly with possible splenic infarcts, low CD4 to CD8 ratio, possibility of infection versus lymphoproliferative disorder -Consult hematology for further recommendations Dry mouth-this is her biggest complaint. With bilateral parotid gland prominence on examination. Her sister has a history of acinar cell carcinoma of the parotid gland. Question if she could have an autoimmune process given the host of issues as above. Check NEY panel, Sjogren's antibodies Continue Biotene spray, giving IV fluids Code status: Full, no mechanical ventilation as per discussion with patient DVT prophylaxis: Lovenox every 24 hours-hold for procedure tomorrow Disposition: Continue telemetry (2) Mononucleosis, infectious, with hepatitis: (3) Hypertension: (4) Diabetes mellitus: (5) Splenomegaly: (6) Lymphadenopathy: (7) Shortness of breath: (8) Liver enzyme elevation: (9) GERD (gastroesophageal reflux disease): (10) DVT prophylaxis: (11) Acute respiratory failure with hypoxia: (12) Dry mouth: Subjective Patient feeling a little bit better today, weaned off oxygen. Biggest complaint is of dry mouth. Denies sore throat or headache. Denies nausea and she is tolerating p.o. Has a mild nonproductive cough. No chest pain or abdominal pain. No joint pains. No rashes. She denies a history of high risk for HIV i.e. no sexual activity other than with her for many decades, no IV drug abuse and no blood transfusions. I discussed the case with the pathologist regarding her abnormal flow cytometry, and discussed the case with the radiologist and infectious disease. Review of Systems All systems reviewed & are unremarkable except as noted in HPI & below Physical Exam Vital Signs (Past 24 Hours): Last Vital Signs Temp 37.2 C 12/06/18 11:38 Pulse 98 H 12/06/18 11:38 Resp 18 12/06/18 11:38 BP 113/70 12/06/18 11:38 Pulse Ox 91 12/06/18 11:38 Constitutional: WD/WN, vitals as above Eyes: PERRL, conjunctivae normal, anicteric sclerae (No watery discharge) ENMT: Ears: no hearing impairment and no external ear abnormality Mouth: + oropharynx abnormality (Mildly dry tongue, parotid glands are prominent bilaterally but no palpable masses or nodules) Throat: no posterior oropharynx abnormality Neck: trachea midline, no thyromegaly Respiratory: normal respiratory effort, lungs clear to auscultation Cardiovascular: RRR, no murmur, no edema Gastrointestinal (Abdomen): normal bowel sounds, soft, nontender, no hepatosplenomegaly Musculoskeletal: Extremities: extremities normal to inspection; no cyanosis and no clubbing Skin: no rashes, warm and dry Neurologic: moves all extremities and awake; no focal motor deficits Psychiatric: A+Ox3, euthymic affect Lymphatic: + cervical lymphadenopathy (Right greater than left) Results & Data Laboratory Results 12/07/18 12/07/18 12/07/18 Range/Units 05:46 05:46 05:46 WBC 12.65 H (4.8-10.8) K/uL RBC 3.49 L (4.2-5.4) M/uL Hgb 10.6 L (12.0-16.0) g/dL Hct 31.0 L (37-47) % MCV 88.8 (80-100) fL MCH 30.4 (25-34) pg MCHC 34.2 (32-36) g/dL RDW Std Deviation 48.1 H (36.4-46.3) fL RDW Coeff of Benjamin 14.8 H (11.5-14.5) % Plt Count 229 (130-400) K/uL MPV 11.0 H (7.4-10.4) fL Absolute Nucleated RBC 0.08 H (0-0) K/uL Nucleated RBC % (auto) 0.6 % Neutrophils % (Manual) % Band Neutrophils % % Lymphocytes % (Manual) % Prolymphocyte % % Reactive Lymphs % (Man) % Monocytes % (Manual) % Eosinophils % (Manual) % Basophils % (Manual) % Metamyelocytes % (Man) % Myelocytes % (Man) % Promyelocytes % (Man) % Blast Cells % (Manual) % Plasma Cell % (Manual) % Other Cells % % Neutrophils # (Manual) (1.4-6.5) K/uL Total Absolute Neuts (1.4-6.5) K/uL Lymphocytes # (Manual) (1.2-3.4) K/uL Reactive Lymphs # K/uL Total Abs Lymphocytes (1.2-3.4) K/uL Monocytes # (Manual) (0.11-0.59) K/uL Large Granular Lymphs % Peripher Smr Path Cons Sodium Pending (136-145) mmol/L Potassium Pending (3.5-5.1) mmol/L Chloride Pending (98-107) mmol/L Carbon Dioxide Pending (21-32) mmol/L Anion Gap Pending (3-11) BUN Pending (7-18) mg/dl Creatinine Pending (0.6-1.2) mg/dl Est Cr Clr Drug Dosing Pending ml/min Est GFR ( Amer) Pending Est GFR (Non-Af Amer) Pending BUN/Creatinine Ratio Pending (10-20) Glucose Pending (70-99) mg/dl POC Glucose (70-99) Calcium Pending (8.5-10.1) mg/dl Total Bilirubin Pending (0.2-1) mg/dl Direct Bilirubin Pending (0-0.2) mg/dl AST Pending (15-37) U/L ALT Pending (12-78) U/L Alkaline Phosphatase Pending (45-117) U/L Total Protein Pending (6.4-8.2) gm/dl Albumin Pending (3.4-5.0) gm/dl NEY Screen SS-A/Ro Antibody SS-B/La Antibody Sm ([place]) Antibody OIL WELL SERVICE OPERATOR HELPER Antibody Scl-70 Scleroderma Ab Anti-ds DNA (Crithidia) Chromatin Antibody Anti-Centromere Ab Thyroid Antimicrosomal Anti-Cardiolipin IgG Ab Anti-Cardiolipin IgA Ab Anti-Cardiolipin IgM Ab Complement C3 Complement C4 CMV IgG Ab U/ML CMV IgM Ab Au/mL Hepatitis A IgM Ab (NON-REACTIVE) Hep B Core IgM Ab (NON-REACTIVE) HIV 1&2 Ab/P24 Ag 4thGn Pending Flow Cytometry Comment Misc Test Perform Site 12/06/18 12/06/18 12/06/18 Range/Units 20:15 16:28 14:19 WBC (4.8-10.8) K/uL RBC (4.2-5.4) M/uL Hgb (12.0-16.0) g/dL Hct (37-47) % MCV (80-100) fL MCH (25-34) pg MCHC (32-36) g/dL RDW Std Deviation (36.4-46.3) fL RDW Coeff of Benjamin (11.5-14.5) % Plt Count (130-400) K/uL MPV (7.4-10.4) fL Absolute Nucleated RBC (0-0) K/uL Nucleated RBC % (auto) % Neutrophils % (Manual) % Band Neutrophils % % Lymphocytes % (Manual) % Prolymphocyte % % Reactive Lymphs % (Man) % Monocytes % (Manual) % Eosinophils % (Manual) % Basophils % (Manual) % Metamyelocytes % (Man) % Myelocytes % (Man) % Promyelocytes % (Man) % Blast Cells % (Manual) % Plasma Cell % (Manual) % Other Cells % % Neutrophils # (Manual) (1.4-6.5) K/uL Total Absolute Neuts (1.4-6.5) K/uL Lymphocytes # (Manual) (1.2-3.4) K/uL Reactive Lymphs # K/uL Total Abs Lymphocytes (1.2-3.4) K/uL Monocytes # (Manual) (0.11-0.59) K/uL Large Granular Lymphs % Peripher Smr Path Cons Sodium (136-145) mmol/L Potassium (3.5-5.1) mmol/L Chloride (98-107) mmol/L Carbon Dioxide (21-32) mmol/L Anion Gap (3-11) BUN (7-18) mg/dl Creatinine (0.6-1.2) mg/dl Est Cr Clr Drug Dosing ml/min Est GFR ( Amer) Est GFR (Non-Af Amer) BUN/Creatinine Ratio (10-20) Glucose (70-99) mg/dl POC Glucose 163 H 117 H (70-99) Calcium (8.5-10.1) mg/dl Total Bilirubin (0.2-1) mg/dl Direct Bilirubin (0-0.2) mg/dl AST (15-37) U/L ALT (12-78) U/L Alkaline Phosphatase (45-117) U/L Total Protein (6.4-8.2) gm/dl Albumin (3.4-5.0) gm/dl NEY Screen Pending SS-A/Ro Antibody Pending SS-B/La Antibody Pending Sm ([place]) Antibody Pending OIL WELL SERVICE OPERATOR HELPER Antibody Pending Scl-70 Scleroderma Ab Pending Anti-ds DNA (Crithidia) Pending Chromatin Antibody Pending Anti-Centromere Ab Pending Thyroid Antimicrosomal Pending Anti-Cardiolipin IgG Ab Pending Anti-Cardiolipin IgA Ab Pending Anti-Cardiolipin IgM Ab Pending Complement C3 Pending Complement C4 Pending CMV IgG Ab U/ML CMV IgM Ab Au/mL Hepatitis A IgM Ab (NON-REACTIVE) Hep B Core IgM Ab (NON-REACTIVE) HIV 1&2 Ab/P24 Ag 4thGn Flow Cytometry Comment Misc Test Perform Site Pending 12/06/18 12/06/18 12/06/18 Range/Units 11:49 07:39 05:49 WBC (4.8-10.8) K/uL RBC (4.2-5.4) M/uL Hgb (12.0-16.0) g/dL Hct (37-47) % MCV (80-100) fL MCH (25-34) pg MCHC (32-36) g/dL RDW Std Deviation (36.4-46.3) fL RDW Coeff of Benjamin (11.5-14.5) % Plt Count (130-400) K/uL MPV (7.4-10.4) fL Absolute Nucleated RBC (0-0) K/uL Nucleated RBC % (auto) % Neutrophils % (Manual) % Band Neutrophils % % Lymphocytes % (Manual) % Prolymphocyte % % Reactive Lymphs % (Man) % Monocytes % (Manual) % Eosinophils % (Manual) % Basophils % (Manual) % Metamyelocytes % (Man) % Myelocytes % (Man) % Promyelocytes % (Man) % Blast Cells % (Manual) % Plasma Cell % (Manual) % Other Cells % % Neutrophils # (Manual) (1.4-6.5) K/uL Total Absolute Neuts (1.4-6.5) K/uL Lymphocytes # (Manual) (1.2-3.4) K/uL Reactive Lymphs # K/uL Total Abs Lymphocytes (1.2-3.4) K/uL Monocytes # (Manual) (0.11-0.59) K/uL Large Granular Lymphs % Peripher Smr Path Cons Cancelled Sodium (136-145) mmol/L Potassium (3.5-5.1) mmol/L Chloride (98-107) mmol/L Carbon Dioxide (21-32) mmol/L Anion Gap (3-11) BUN (7-18) mg/dl Creatinine (0.6-1.2) mg/dl Est Cr Clr Drug Dosing ml/min Est GFR ( Amer) Est GFR (Non-Af Amer) BUN/Creatinine Ratio (10-20) Glucose (70-99) mg/dl POC Glucose 152 H 88 (70-99) Calcium (8.5-10.1) mg/dl Total Bilirubin (0.2-1) mg/dl Direct Bilirubin (0-0.2) mg/dl AST (15-37) U/L ALT (12-78) U/L Alkaline Phosphatase (45-117) U/L Total Protein (6.4-8.2) gm/dl Albumin (3.4-5.0) gm/dl NEY Screen SS-A/Ro Antibody SS-B/La Antibody Sm ([place]) Antibody OIL WELL SERVICE OPERATOR HELPER Antibody Scl-70 Scleroderma Ab Anti-ds DNA (Crithidia) Chromatin Antibody Anti-Centromere Ab Thyroid Antimicrosomal Anti-Cardiolipin IgG Ab Anti-Cardiolipin IgA Ab Anti-Cardiolipin IgM Ab Complement C3 Complement C4 CMV IgG Ab U/ML CMV IgM Ab Au/mL Hepatitis A IgM Ab (NON-REACTIVE) Hep B Core IgM Ab (NON-REACTIVE) HIV 1&2 Ab/P24 Ag 4thGn [facility]ometry [facility] Test Perform Site 12/06/18 12/06/18 12/05/18 Range/Units 05:49 05:49 06:02 WBC 13.50 H (4.8-10.8) K/uL RBC 3.58 L (4.2-5.4) M/uL Hgb 10.9 L (12.0-16.0) g/dL Hct 32.0 L (37-47) % MCV 89.4 (80-100) fL MCH 30.4 (25-34) pg MCHC 34.1 (32-36) g/dL RDW Std Deviation 49.0 H (36.4-46.3) fL RDW Coeff of Benjamin 14.9 H (11.5-14.5) % Plt Count 225 (130-400) K/uL MPV 11.1 H (7.4-10.4) fL Absolute Nucleated RBC 0.08 H (0-0) K/uL Nucleated RBC % (auto) 0.6 % Neutrophils % (Manual) 30.0 % Band Neutrophils % 0.0 % Lymphocytes % (Manual) 48.0 % Prolymphocyte % 0.0 % Reactive Lymphs % (Man) 15.0 % Monocytes % (Manual) 7.0 % Eosinophils % (Manual) 0.0 % Basophils % (Manual) 0.0 % Metamyelocytes % (Man) 0.0 % Myelocytes % (Man) 0.0 % Promyelocytes % (Man) 0.0 % Blast Cells % (Manual) 0.0 % Plasma Cell % (Manual) 0.0 % Other Cells % 0.0 % Neutrophils # (Manual) 4.05 (1.4-6.5) K/uL Total Absolute Neuts 4.05 (1.4-6.5) K/uL Lymphocytes # (Manual) 6.48 H (1.2-3.4) K/uL Reactive Lymphs # 2.03 K/uL Total Abs Lymphocytes 8.51 H (1.2-3.4) K/uL Monocytes # (Manual) 0.95 H (0.11-0.59) K/uL Large Granular Lymphs 0.0 % Peripher Smr Path Cons Pending Sodium 133 L (136-145) mmol/L Potassium 3.8 (3.5-5.1) mmol/L Chloride 99 (98-107) mmol/L Carbon Dioxide 25 (21-32) mmol/L Anion Gap 9.0 (3-11) BUN 9 (7-18) mg/dl Creatinine 0.87 (0.6-1.2) mg/dl Est Cr Clr Drug Dosing 79.6 ml/min Est GFR ( Amer) 83.9 Est GFR (Non-Af Amer) 72.4 BUN/Creatinine Ratio 10.3 (10-20) Glucose 73 (70-99) mg/dl POC Glucose (70-99) Calcium 8.2 L (8.5-10.1) mg/dl Total Bilirubin 2.4 H (0.2-1) mg/dl Direct Bilirubin 1.9 H (0-0.2) mg/dl AST 154 H (15-37) U/L ALT 193 H (12-78) U/L Alkaline Phosphatase 356 H (45-117) U/L Total Protein 8.2 (6.4-8.2) gm/dl Albumin 2.7 L (3.4-5.0) gm/dl ENY Screen SS-A/Ro Antibody SS-B/La Antibody Sm ([place]) Antibody OIL WELL SERVICE OPERATOR HELPER Antibody Scl-70 Scleroderma Ab Anti-ds DNA (Crithidia) Chromatin Antibody Anti-Centromere Ab Thyroid Antimicrosomal Anti-Cardiolipin IgG Ab Anti-Cardiolipin IgA Ab Anti-Cardiolipin IgM Ab Complement C3 Complement C4 CMV IgG Ab U/ML CMV IgM Ab Au/mL Hepatitis A IgM Ab (NON-REACTIVE) Hep B Core IgM Ab (NON-REACTIVE) HIV 1&2 Ab/P24 Ag 4thGn Flow Cytometry Comment See Comment [facility] Test Perform Site 12/05/18 Range/Units 06:02 WBC (4.8-10.8) K/uL RBC (4.2-5.4) M/uL Hgb (12.0-16.0) g/dL Hct (37-47) % MCV (80-100) fL MCH (25-34) pg MCHC (32-36) g/dL RDW Std Deviation (36.4-46.3) fL RDW Coeff of Benjamin (11.5-14.5) % Plt Count (130-400) K/uL MPV (7.4-10.4) fL Absolute Nucleated RBC (0-0) K/uL Nucleated RBC % (auto) % Neutrophils % (Manual) % Band Neutrophils % % Lymphocytes % (Manual) % Prolymphocyte % % Reactive Lymphs % (Man) % Monocytes % (Manual) % Eosinophils % (Manual) % Basophils % (Manual) % Metamyelocytes % (Man) % Myelocytes % (Man) % Promyelocytes % (Man) % Blast Cells % (Manual) % Plasma Cell % (Manual) % Other Cells % % Neutrophils # (Manual) (1.4-6.5) K/uL Total Absolute Neuts (1.4-6.5) K/uL Lymphocytes # (Manual) (1.2-3.4) K/uL Reactive Lymphs # K/uL Total Abs Lymphocytes (1.2-3.4) K/uL Monocytes # (Manual) (0.11-0.59) K/uL Large Granular Lymphs % Peripher Smr Path Cons Sodium (136-145) mmol/L Potassium (3.5-5.1) mmol/L Chloride (98-107) mmol/L Carbon Dioxide (21-32) mmol/L Anion Gap (3-11) BUN (7-18) mg/dl Creatinine (0.6-1.2) mg/dl Est Cr Clr Drug Dosing ml/min Est GFR ( Amer) Est GFR (Non-Af Amer) BUN/Creatinine Ratio (10-20) Glucose (70-99) mg/dl POC Glucose (70-99) Calcium (8.5-10.1) mg/dl Total Bilirubin (0.2-1) mg/dl Direct Bilirubin (0-0.2) mg/dl AST (15-37) U/L ALT (12-78) U/L Alkaline Phosphatase (45-117) U/L Total Protein (6.4-8.2) gm/dl Albumin (3.4-5.0) gm/dl NEY Screen SS-A/Ro Antibody SS-B/La Antibody Sm ([place]) Antibody OIL WELL SERVICE OPERATOR HELPER Antibody Scl-70 Scleroderma Ab Anti-ds DNA (Crithidia) Chromatin Antibody Anti-Centromere Ab Thyroid Antimicrosomal Anti-Cardiolipin IgG Ab Anti-Cardiolipin IgA Ab Anti-Cardiolipin IgM Ab Complement C3 Complement C4 CMV IgG Ab <0.60 U/ML CMV IgM Ab <30.00 Au/mL Hepatitis A IgM Ab NON-REACTIVE (NON-REACTIVE) Hep B Core IgM Ab NON-REACTIVE (NON-REACTIVE) HIV 1&2 Ab/P24 Ag 4thGn Flow Cytometry Comment Misc Test Perform Site Diagnostic Findings CT abd pelvis IV con only CLINICAL HISTORY: 58 years-old Female presenting with elevated lfts, splenomegaly, RUQ pain. TECHNIQUE: Multidetector CT of the abdomen and pelvis was performed after the administration of intravenous contrast. IV contrast: 94 mL of Optiray 320. One or more dose lowering techniques were used consistent with the principles of ALARA (as low as reasonably achievable), including automatic exposure control, mA or kV adjustment to individual patient size, and/or use of iterative reconstruction. COMPARISON: Ultrasound from 03/21/2018. CT DOSE (mGy.cm): The estimated cumulative dose is 1364.80 mGy.cm. FINDINGS: Labor Operator topogram: Unremarkable. Lung bases: Normal heart size. No pericardial or pleural effusion. Extensive bibasilar opacities at the lung bases likely atelectasis. Interlobular septal thickening. Dependent subpleural consolidation likely atelectasis. Liver: Enlarged measuring over 24 cm in maximal sagittal dimension. Density suggestive of hepatic steatosis. No focal lesion. Patent hepatic vasculature. Biliary: No intrahepatic or extrahepatic biliary ductal dilatation. Gallbladder surgically absent. Pancreas: Mild parenchymal atrophy. Spleen: Geographic regions of peripheral hypoperfusion consistent with infarcts. No associated atrophy to suggest chronicity. Splenic artery and vein patent. The spleen is borderline enlarged. Adrenal glands: Normal. Kidneys and ureters: Normal. No hydronephrosis. Bladder: Normal. Pelvic organs: Uterus surgically absent. Bowel: Normal appendix. No bowel obstruction. Peritoneal cavity: Trace interloop fluid in the right lower quadrant associated with small bowel (series 3 image [id number]). There may be a soft tissue mass, which appears spiculated and has a desmoplastic effect on surrounding small bowel loops in the superior pelvis/right lower quadrant (series 3 image 351). This measures 1.7 x 1.0 cm. No free intraperitoneal gas. Lymph nodes: Numerous prominent lymph nodes throughout the retroperitoneum, mesentery, pelvis, and inguinal regions. The vast majority of these lymph nodes are subcentimeter with benign morphologies, however, several pathologically enlarged inguinal lymph nodes are evident. An index node in the right inguinal region measures 12 mm in short axis (series 3 image [id number]). Vasculature: Aorta and IVC patent and normal in caliber. Abdominal wall: Normal. Musculoskeletal: Degenerative changes of the pubic symphysis, sacroiliac joints, and lower lumbar spine. IMPRESSION: 1. Significant diffuse lymphadenopathy though the vast majority of lymph nodes are subcentimeter with benign morphologies. Pathologic enlargement of inguinal lymph nodes. Consider ultrasound-guided fine-needle aspiration of one of the right inguinal lymph nodes. A lymphoproliferative disease cannot be excluded. 2. Findings suspicious for a spiculated mesenteric mass in the superior pelvis with fibrotic/desmoplastic appearance and subtle retractile changes on surrounding small bowel loops. There is trace associated interloop fluid. This appearance could be seen in the setting of an inflammatory mass that the patient has a history of inflammatory bowel disease, mesenteric metastasis in the setting of a small bowel neuroendocrine/carcinoid tumor, sclerosing mesenteritis, or lymphoma. Correlate with the patient's history. 3. Hepatomegaly and hepatic steatosis. Correlate with liver function tests to exclude steatohepatitis as a cause for right upper quadrant pain. 4. Borderline splenomegaly with multiple splenic infarcts. This could have either an embolic etiology or intrinsic splenic etiology.
[2018-12-06 14:17] LABS: CMV IgG Antibody <0.60 U/ML; CMV IgM Antibody <30.00 Au/mL
--- NOTE | 2018-12-06 14:21 | Infectious Disease Progress Nt ---
Date of Service December 06, 2018 Assessment & Plan (1) Mononucleosis, infectious, with hepatitis: 58-year-old female with acute febrile illness with leukocytosis, transaminitis, adenopathy, and unusual pelvic mass. Lack of any symptoms prior to onset somewhat against malignant process, but think it is probably brandon to aspirate lymph node if possible if we are dealing with lymphoproliferative disorder. Await further serologies. Will follow. Subjective Patient seen in follow-up for fever, lymphadenopathy. Patient about the same today. Dry cough, slightly sore throat, currently afebrile. No other new specific complaints. Review of Systems All systems reviewed & are unremarkable except as noted in HPI & below Physical Exam Vital Signs (Past 24 Hours): Last Vital Signs Temp 37.2 C 12/06/18 11:38 Pulse 98 H 12/06/18 11:38 Resp 18 12/06/18 11:38 BP 113/70 12/06/18 11:38 Pulse Ox 91 12/06/18 11:38 Constitutional: WD/WN, vitals as above comfortable; no acute distress Eyes: PERRL, conjunctivae normal, anicteric sclerae ENMT: external ear and nose normal, oropharynx normal Neck: trachea midline, no thyromegaly neck nontender Respiratory: normal respiratory effort, lungs clear to auscultation normal percussion; no respiratory distress Cardiovascular: Rate/Rhythm: regular rate and regular rhythm Heart Sounds: normal S1 and normal S2; no gallop, no murmur and no cardiac rub Gastrointestinal (Abdomen): normal bowel sounds, soft, nontender, no hepatosplenomegaly Musculoskeletal: no cyanosis or clubbing, extremities motor strength 5/5 No spinal tenderness, no joint swelling or erythema Skin: no rashes, warm and dry no lesions Neurologic: moves all extremities and awake; no focal motor deficits Motor/Sensory: no sensory deficit Psychiatric: A+Ox3, euthymic affect Lymphatic: no cervical or axillary lymphadenopathy no inguinal lymphadenopathy Results & Data Laboratory Results Short CBC 12/06/18 Range/Units 05:49 WBC 13.50 H (4.8-10.8) K/uL Hgb 10.9 L (12.0-16.0) g/dL Hct 32.0 L (37-47) % Plt Count 225 (130-400) K/uL [facility] 12/06/18 05:49 Sodium 133 L Potassium 3.8 Chloride 99 Carbon Dioxide 25 BUN 9 Creatinine 0.87 Glucose 73 Calcium 8.2 L Liver Function 12/06/18 Range/Units 05:49 Total Bilirubin 2.4 H (0.2-1) mg/dl Direct Bilirubin 1.9 H (0-0.2) mg/dl AST 154 H (15-37) U/L ALT 193 H (12-78) U/L Alkaline Phosphatase 356 H (45-117) U/L Albumin 2.7 L (3.4-5.0) gm/dl Diagnostic Findings Microbiology 12/04/18 23:07 Blood Blood Culture - Preliminary No growth to date. 12/04/18 23:00 Blood Blood Culture - Preliminary No growth to date. cc: ~ CT abd pelvis IV con only CLINICAL HISTORY: 58 years-old Female presenting with elevated lfts, splenomegaly, RUQ pain. TECHNIQUE: Multidetector CT of the abdomen and pelvis was performed after the administration of intravenous contrast. IV contrast: 94 mL of Optiray 320. One or more dose lowering techniques were used consistent with the principles of ALARA (as low as reasonably achievable), including automatic exposure control, mA or kV adjustment to individual patient size, and/or use of iterative reconstruction. COMPARISON: Ultrasound from 03/21/2018. CT DOSE (mGy.cm): The estimated cumulative dose is 1364.80 mGy.cm. FINDINGS: Auto Brake Mechanic topogram: Unremarkable. Lung bases: Normal heart size. No pericardial or pleural effusion. Extensive bibasilar opacities at the lung bases likely atelectasis. Interlobular septal thickening. Dependent subpleural consolidation likely atelectasis. Liver: Enlarged measuring over 24 cm in maximal sagittal dimension. Density sug gestive of hepatic steatosis. No focal lesion. Patent hepatic vasculature. Biliary: No intrahepatic or extrahepatic biliary ductal dilatation. Gallbladder surgically absent. Pancreas: Mild parenchymal atrophy. Spleen: Geographic regions of peripheral hypoperfusion consistent with infarcts. No associated atrophy to suggest chronicity. Splenic artery and vein patent. The spleen is borderline enlarged. Adrenal glands: Normal. Kidneys and ureters: Normal. No hydronephrosis. Bladder: Normal. Pelvic organs: Uterus surgically absent. Bowel: Normal appendix. No bowel obstruction. Peritoneal cavity: Trace interloop fluid in the right lower quadrant associated with small bowel (series 3 image 366). There may be a soft tissue mass, which appears spiculated and has a desmoplastic effect on surrounding small bowel loops in the superior pelvis/right lower quadrant (series 3 image 351). This measures 1.7 x 1.0 cm. No free intraperitoneal gas. Lymph nodes: Numerous prominent lymph nodes throughout the retroperitoneum, mesentery, pelvis, and inguinal regions. The vast majority of these lymph nodes are subcentimeter with benign morphologies, however, several pathologically enlarged inguinal lymph nodes are evident. An index node in the right inguinal region measures 12 mm in short axis (series 3 image 392). Vasculature: Aorta and IVC patent and normal in caliber. Abdominal wall: Normal. Musculoskeletal: Degenerative changes of the pubic symphysis, sacroiliac joints, and lower lumbar spine. IMPRESSION: 1. Significant diffuse lymphadenopathy though the vast majority of lymph nodes are subcentimeter with benign morphologies. Pathologic enlargement of inguinal lymph nodes. Consider ultrasound-guided fine-needle aspiration of one of the right inguinal lymph nodes. A lymphoproliferative disease cannot be excluded. 2. Findings suspicious for a spiculated mesenteric mass in the superior pelvis with fibrotic/desmoplastic appearance and subtle retractile changes on surrounding small bowel loops. There is trace associated interloop fluid. This appearance could be seen in the setting of an inflammatory mass that the patient has a history of inflammatory bowel disease, mesenteric metastasis in the setting of a small bowel neuroendocrine/carcinoid tumor, sclerosing mesenteritis, or lymphoma. Correlate with the patient's history. 3. Hepatomegaly and hepatic steatosis. Correlate with liver function tests to exclude steatohepatitis as a cause for right upper quadrant pain. 4. Borderline splenomegaly with multiple splenic infarcts. This could have either an embolic etiology or intrinsic splenic etiology. The report will be called/faxed according to standard departmental protocol. Electronically signed by: Serafin Soto M.D. 12/06/2018 8:14 AM Dictated: 12/06/18 [id number]
[2018-12-06] MEDS: SODIUM CHLORIDE 0.9% 1000ML 1,000 ML IV SCH ×2 (14:51→14:52)
--- NOTE | 2018-12-06 19:12 | Progress Note ---
DATE: 12/06/2018 TIME: 4:10 p.m. SUBJECTIVE: The patient feels better. She states she has not been short of breath today. She ambulated part way around the lama without difficulty. She still has her dry cough which is unchanged. The patient was unaware of having fevers today, but she has had some low grade fevers earlier. OBJECTIVE: GENERAL: The patient appears comfortable. VITAL SIGNS: Temperature is currently 37.1. Earlier today at 3:15 a.m. temperature was 37.8. HEART: Heart rate is 104 per minute. Rhythm regular. Blood pressure 106/61. LUNGS: Auscultation of the lung silver revealed them to be clear. Saturation is 92% on room air. Respiratory rate 20. EXTREMITIES: Showed no cyanosis, clubbing or edema. LABORATORY DATA: White count today was 13.5. Hemoglobin 10.9. Platelets 225,000. Sodium 133, potassium 3.8, chloride 99, and bicarbonate 25. BUN 9 with a creatinine 0.87. Bilirubin today was 2.4. AST 154, ALT 193, alkaline phosphatase 356, and albumin was 2.7. Lipase was 128 and amylase was 30. The urine legionella antigen is still pending. The CMV titers were negative. EBV titers are pending. CAT scan of the abdomen and pelvis showed somewhat diffuse lymphadenopathy in the abdomen, although most are subcentimeter. Some were somewhat enlarged. There is a 1.2 cm node in the right inguinal region. In the peritoneal cavity was a spiculated mesenteric mass in the superior pelvis. The significance of this is unclear. The spleen showed splenic infarcts. Spleen was borderline enlarged. The liver was enlarged. The density would suggest hepatic steatosis. The differential count on the CBC today showed the reactive limbs down from 59.5 down to 15. Lymphocytes however, increased from 10.8-48. Neutrophils were 30%. IMPRESSION: 1. Lingular infiltrate. 2. Atelectasis both bases. 3. Mild mediastinal adenopathy. 4. Abnormal liver function tests with positive Monospot. 5. Obstructive sleep apnea. COMMENTS AND RECOMMENDATIONS: The patient tells me she is going to have a needle aspirate of the inguinal node. I think that is advisable. She has mildly enlarged lymph nodes throughout her body. Obviously, the possibility of a lymphoproliferative disorder exists. I think it would be unusual, but perhaps not impossible for mononucleosis to be so diffuse. Would continue with the antibiotics for now.
[2018-12-06] MEDS ORDERED: PROCHLORPERAZINE 5 MG in SYRINGE 4 ML IV ONE (21:13)
[2018-12-06] MEDS ORDERED: ONDANSETRON 4 MG OD TAB PO ONE (21:16)
[2018-12-07 06:06] LABS: Hemoglobin 10.6 g/dL (12.0-16.0); Mean Corpuscular Hgb Conc 34.2 g/dL (32-36); Mean Corpuscular Volume 88.8 fL (80-100); Nucleated RBC # (auto) 0.08 K/uL (0-0); Nucleated RBC % (auto) 0.6 %; Platelet Count 229 K/uL (130-400); RDW Coefficient of Variation 14.8 % (11.5-14.5); RDW Standard Deviation 48.1 fL (36.4-46.3); Red Blood Count 3.49 M/uL (4.2-5.4); White Blood Count 12.65 K/uL (4.8-10.8)
[2018-12-07 06:41] LABS: Albumin Level 2.6 gm/dl (3.4-5.0); BUN Creatinine Ratio 11.8 (10-20); Bilirubin Direct 2.1 mg/dl (0-0.2); Calcium 7.9 mg/dl (8.5-10.1); Est GFR (African American) 82.8; Est GFR (Non-African American) 71.4; Potassium 3.8 mmol/L (3.5-5.1)
[2018-12-07 06:43] LABS: Bilirubin,Total 2.6 mg/dl (0.2-1); Total Protein 8.3 gm/dl (6.4-8.2)
[2018-12-07 07:41] LABS: ALC (manual) 8.69 K/uL (1.2-3.4); Lymphocytes # (manual) 1.54 K/uL (1.2-3.4); Lymphocytes % (manual) 12.2 %; Monocytes # (manual) 0.44 K/uL (0.11-0.59); Monocytes % (manual) 3.5 %; Neutrophils % (manual) 27.8 %; Reactive Lymphocytes # (manual) 7.15 K/uL; Target Cells 1+; Toxic Vacuolation 1+
[2018-12-07] MEDS: AMLODIPINE BESYLATE 5 MG TAB PO SCH (08:43)
[2018-12-07] MEDS: ASCORBIC ACID 500 MG TAB PO SCH (08:43)
[2018-12-07] MEDS: MULTIVITAMIN TAB PO SCH (08:43)
[2018-12-07] MEDS: hydroCHLOROthiazide 25 MG TAB PO SCH (08:44)
[2018-12-07] MEDS: OXYBUTYNIN CHLORIDE XL 5 MG TABCR PO SCH (08:44)
[2018-12-07] MEDS: AZITHROMYCIN 250 MG TAB PO SCH (08:45)
[2018-12-07] MEDS: LOSARTAN POTASSIUM 50 MG TAB PO SCH (08:45)
[2018-12-07] MEDS: POTASSIUM CHLORIDE 20 MEQ TABCR PO SCH (08:45)
[2018-12-07] MEDS: cefTRIAXone SODIUM 1,000 MG/50 ML BAG IV SCH (08:45)
[2018-12-07] MEDS: INSULIN ASPART 100 UNITS/ML 3 ML PEN SC SCH ×4 (08:48→21:08)
--- NOTE | 2018-12-07 10:27 | Progress Note ---
DATE: 12/07/2018 PULMONARY PROGRESS NOTE TIME: 10:00 a.m. SUBJECTIVE: The patient still has a dry cough. It is the same as yesterday. She is still somewhat short of breath more than her normal. She still complains of dry mouth. She had a good night sleep. She did wear CPAP. OBJECTIVE: GENERAL: The patient is comfortable. VITAL SIGNS: Temperature 36.3. Maximum temperature overnight 37.6. Heart rate is elevated at 110. Rhythm is regular. Blood pressure 123/69. LUNGS: Auscultation of the lung silver revealed them to be clear. The patient did, however, cough when taking deep breaths. Respiratory rate 18. Saturation is still lower than normal at 90% on room air. EXTREMITIES: Showed no cyanosis, clubbing or edema. LABORATORY DATA: White count today is 12.65. Hemoglobin 10.6. Platelets 229,000. Electrolytes show sodium 134, potassium 3.8, chloride 101, bicarbonate 25. BUN is 10 with a creatinine 0.88. Today's liver function showed AST elevated at 171 and yesterday was 154. ALT today is 185 and yesterday was 193. Alkaline phosphatase today is 382 and yesterday was 356. Bilirubin today 2.6 and yesterday 2.4. IMPRESSION: 1. Infiltrate in the lingula. 2. Atelectasis at the bases. 3. Mediastinal adenopathy. 4. Abnormal LFTs. 5. Presumed mononucleosis. 6. Obstructive sleep apnea. 7. Adenopathy, right inguinal region. COMMENTS AND RECOMMENDATIONS: The patient is going for a biopsy of the right inguinal node soon this morning. Hopefully, this will give an answer as to whether this represents what type of lymphoproliferative disorder or is at all related to mono. I still would continue with the antibiotics. We will check a chest x-ray for tomorrow. I am surprised that her oxygenation has not improved more than what it has. I am going to suggest that we give her breathing treatments t.i.d. rather than p.r.n. alone so that she will get some nebulizer treatments. I do not think she is really getting any.
--- NOTE | 2018-12-07 11:10 | Infectious Disease Progress Nt ---
Date of Service December 07, 2018 Assessment & Plan (1) Mononucleosis, infectious, with hepatitis: 58-year-old female with acute febrile illness with leukocytosis, transaminitis, adenopathy, positive Monospot, and unusual pelvic mass. To proceed with lymph node aspirate today to hopefully evaluate for possible lymphoproliferative disorder. Await EBV serologies. CMV serologies not consistent with acute infection. Will follow. Subjective Patient seen in follow-up for fever, lymphadenopathy. Complaints about the same today. Still with dry cough. Complaining of dry mouth. For lymph node biopsy later today. Currently afebrile. Cultures remain negative. Review of Systems All systems reviewed & are unremarkable except as noted in HPI & below Physical Exam Vital Signs (Past 24 Hours): Last Vital Signs Temp 36.3 C L 12/07/18 07:31 Pulse 94 H 12/07/18 10:07 Resp 18 12/07/18 07:31 BP 123/69 12/07/18 07:31 Pulse Ox 90 12/07/18 07:31 Constitutional: WD/WN, vitals as above comfortable; no acute distress Eyes: PERRL, conjunctivae normal, anicteric sclerae ENMT: external ear and nose normal, oropharynx normal Neck: trachea midline, no thyromegaly neck nontender Respiratory: normal respiratory effort, lungs clear to auscultation normal percussion; no respiratory distress and does not use accessory muscles Cardiovascular: Rate/Rhythm: regular rate and regular rhythm Heart Sounds: normal S1 and normal S2; no gallop, no murmur and no cardiac rub Vessels: normal peripheral pulses; no JVD Gastrointestinal (Abdomen): normal bowel sounds, soft, nontender, no hepatosplenomegaly Musculoskeletal: no cyanosis or clubbing, extremities motor strength 5/5 Spine: thoracic spine normal to inspection and lumbar spine normal to inspection; no cervical spinal tenderness Skin: no rashes, warm and dry normal turgor; no lesions Neurologic: patellar DTR's 2+ bilat, sensation intact moves all extremities and awake; no focal motor deficits Motor/Sensory: no sensory deficit Psychiatric: A+Ox3, euthymic affect Orientation: cooperative Lymphatic: no cervical or axillary lymphadenopathy no inguinal lymphadenopathy Results & Data Laboratory Results Short CBC 12/07/18 Range/Units 05:46 WBC 12.65 H (4.8-10.8) K/uL Hgb 10.6 L (12.0-16.0) g/dL Hct 31.0 L (37-47) % Plt Count 229 (130-400) K/uL BMP 12/07/18 05:46 Sodium 134 L Potassium 3.8 Chloride 101 Carbon Dioxide 25 BUN 10 Creatinine 0.88 Glucose 82 Calcium 7.9 L Liver Function 12/07/18 Range/Units 05:46 Total Bilirubin 2.6 H (0.2-1) mg/dl Direct Bilirubin 2.1 H (0-0.2) mg/dl AST 171 H (15-37) U/L ALT 185 H (12-78) U/L Alkaline Phosphatase 382 H (45-117) U/L Albumin 2.6 L (3.4-5.0) gm/dl Diagnostic Findings Microbiology 12/04/18 23:07 Blood Blood Culture - Preliminary No growth to date. 12/04/18 23:00 Blood Blood Culture - Preliminary No growth to date.
--- NOTE | 2018-12-07 11:47 | Ultrasound Report ---
US FNA w/img 1st lesion CLINICAL HISTORY: Bilateral inguinal adenopathy. COMPARISON STUDY: CT abdomen and pelvis 12/06/2018. PROCEDURE: The risks, benefits, and alternatives to the procedure were discussed with the patient. Wr itten informed consent was obtained. The patient was placed supine in ultrasound, and the conglomera te right inguinal adenopathy was localized by ultrasound and selected for fine needle aspiration. The right inguinal distribution was prepped and draped in the usual sterile fashion. The adenopathy was aspirated under ultrasound guidance with 3 passes utilizing 25-gauge needles. Specimens were reviewed by the pathologist in real-time and deemed adequate for diagnosis. The patient tolerated the procedu re well and left the department in satisfactory condition. IMPRESSION: Completed fine-needle aspiration of the right inguinal adenopathy. The above report was generated using voice recognition software. It may contain grammatical, syntax o r spelling errors. Electronically signed by: Ant Oliveira M.D. 12/07/2018 11:45 AM
[2018-12-07] MEDS: COLESTIPOL HCL 1 GM TAB PO SCH ×2 (13:01→21:08)
[2018-12-07] MEDS: LEVALBUTEROL HCL 0.63 MG/3 ML NEB NEB SCH ×2 (14:08→19:22)
[2018-12-07 14:12] LABS: EBV Nuclear Ag Antibody < 18.00 U/ML
--- NOTE | 2018-12-07 18:27 | Hospitalist Progress Note ---
Date of Service December 07, 2018 Assessment & Plan (1) Pneumonia: Ms. Auguste is a 58-year-old woman with a history of DMII, HTN, OAB, and obesity who presents to the emergency department due to a 10-day history of feeling unwell, with a dry cough, worsening shortness of breath and night sweat s. She is found to have a low-grade fever here, sinus tachycardia, and a leukocytosis with predominantly a lymphocytosis. Also with elevated LFTs and no abdominal pain. Chest x-ray and then a chest CTA showed possible atelectasis versus infiltrate in the lingula and bibasilar regions, no PE noted. Patient has left lingular consolidation, and also had prominent mediastinal, hilar and axillary lymph nodes, as well as splenomegaly & b/l thyroid nodules Monospot is positive Likely secondary bacterial PNA in setting of viral illness -No significant events on telemetry except sinus tach -Patient meets criteria for sepsis with fever, elevated resp rate, elevated white cell count and pulmonary source of infection plus likely infectious mononucleosis as the source -Blood cultures-remain no growth to date -Continue with ceftriaxone and azithromycin to cover for community-acquired pneumonia although probably only needs a total of 5 days-today is day #4 -Pulm following-made Levalbuterol scheduled tid which is really helping -Is now weaned off oxygen -follow CXR in AM (2) Mononucleosis, infectious, with hepatitis: -Suspected infectious mononucleosis given lymphocytosis, elevated LFTs, splenomegaly, and lymphadenopathy Now confirmed with +EBV titers with high IgM - flow cytometry without evidence of leukemia however this could miss a T-cell lymphoma as per pathology-it does have a significantly low ratio of CD4 to CD8; pathology reports this CD4 to CD8 low ratio could also be from another viral illness (i.e. EBV) - HIV negative -LFTs remain elevated SUpportive care -Had US-guided FNA of Right inguinal LN on 12/06--> f/u Path results (3) Hypertension: Hypertension -Continue home amlodipine, losartan and now will hold hydrochlorothiazide given dry mouth -hold home potassium supplementation as now holding HCTZ (4) Diabetes mellitus: Diabetes Mellitus type II with hypoglycemia-improved now -Hold home metformin and glimepiride -Blood sugar checks AC/HS and placed on insulin sliding scale (5) Splenomegaly: Borderline, with multiple areas that appear like splenic infarcts on imaging--> likely related to EBV Recommend no high impact activities -follow with repeat imaging in a few weeks (6) Lymphadenopathy: Diffuse lymphadenopathy seen on imaging of CT C/A/P -With lymphocytosis, diffuse lymphadenopathy, splenomegaly with possible splenic infarcts, low CD4 to CD8 ratio, possibility of infection versus lymphoproliferative disorder -Consult hematology for further recommendations -Likely secondary to [place] as above, but also with dry mouth--> Sjogren's or other autoimmune disorder? -NEY and Sjogren's studies pending -LN FNA bx pending-f/u results -follow CBC (7) Liver enzyme elevation: Transaminitis-likely secondary to infectious mononucleosis in the setting of known hepatic steatosis-persists Hepatitis panel negative CMV negative EBV IgM ++ CT abdomen/pelvis with diffuse lymphadenopathy, hepatomegaly, possible splenic infarcts, and a desmoplastic 1.7 x 1 cm mass in the right lower quadrant of unknown significance in a borderline enlarged spleen -Has had mild elevation of LFTs in the past but then normalized, now elevated and slightly worse from previous She has no abdominal pain at all -She had a biliary ultrasound done on [place] 03/28 which showed hepatic steatosis and mild hepatomegaly. s/p Cholecystectomy -continue home colestipol (8) Acute respiratory failure with hypoxia: secondary to PNA, bronchitis -improved now, weaned off O2 -made Levalbuterol nebs tid scheduled today -treat PNA (9) Shortness of breath: secondary to PNA as above (10) Dry mouth: Dry mouth-this is her biggest complaint. With bilateral parotid gland prominence on examination. Her sister has a history of acinar cell carcinoma of the parotid gland. Question if she could have an autoimmune process given the host of issues as above? Check NEY panel, Sjogren's antibodies-pending Continue Biotene spray, already received 2-3 days of IV fluids -hold HCTZ and Oxybutynin (although has been on these for many years and not likely the cause) -follow (11) Urinary urgency: Chronic issue, with OAB -UA negative recently for infection and no new symptoms -hold home oxybutynin for dry mouth (12) Pelvic mass: 1.7 x 1.0 cm RLQ desmoplastic mass seen on CT imaging--> may be related to Lymphadenopathy, mono process but unsure? Recommend repeat imaging in several weeks and possible THERAPIST OCCUPATIONAL or Surgery follow up if persists (13) DVT prophylaxis: Lovenox SQ Disposition: ok to transition off telemetry Subjective Again c/o dry mouth and poor ability to taste food. No jaw pain, no chest pain. Still with mild nonproductive cough. No abd pain except slight on right side. Is moving bowels regularly. SHe had her FNA today and said she feels great afterwards, no problems or pain. Tele with ST low 100s Review of Systems All systems reviewed & are unremarkable except as noted in HPI & below Physical Exam Vital Signs (Past 24 Hours): Last Vital Signs Temp 36.8 C 12/07/18 16:02 Pulse 100 H 12/07/18 16:02 Resp 18 12/07/18 16:02 BP 123/74 12/07/18 16:02 Pulse Ox 92 12/07/18 16:02 Constitutional: WD/WN, vitals as above Eyes: PERRL, conjunctivae normal, anicteric sclerae (No watery discharge) ENMT: Ears: no hearing impairment and no external ear abnormality Mouth: + oropharynx abnormality (Mildly dry tongue, parotid glands are prominent bilaterally but no palpable masses or nodules) Throat: no posterior oropharynx abnormality Neck: trachea midline, no thyromegaly Respiratory: normal respiratory effort, lungs clear to auscultation Cardiovascular: RRR, no murmur, no edema Gastrointestinal (Abdomen): normal bowel sounds, soft, nontender, no hepatosplenomegaly Musculoskeletal: Extremities: extremities normal to inspection; no cyanosis and no clubbing Skin: no rashes, warm and dry Neurologic: moves all extremities and awake; no focal motor deficits Psychiatric: A+Ox3, euthymic affect Lymphatic: + cervical lymphadenopathy (Right greater than left) Results & Data Laboratory Results 12/07/18 12/07/18 12/07/18 Range/Units 20:45 16:32 11:32 WBC (4.8-10.8) K/uL RBC (4.2-5.4) M/uL Hgb (12.0-16.0) g/dL Hct (37-47) % MCV (80-100) fL MCH (25-34) pg MCHC (32-36) g/dL RDW Std Deviation (36.4-46.3) fL RDW Coeff of Benjamin (11.5-14.5) % Plt Count (130-400) K/uL MPV (7.4-10.4) fL Absolute Nucleated RBC (0-0) K/uL Nucleated RBC % (auto) % Neutrophils % (Manual) % Lymphocytes % (Manual) % Reactive Lymphs % (Man) % Monocytes % (Manual) % Neutrophils # (Manual) (1.4-6.5) K/uL Total Absolute Neuts (1.4-6.5) K/uL Lymphocytes # (Manual) (1.2-3.4) K/uL Reactive Lymphs # K/uL Total Abs Lymphocytes (1.2-3.4) K/uL Monocytes # (Manual) (0.11-0.59) K/uL Toxic Vacuolation Target Cells Peripher Smr Path Cons Sodium (136-145) mmol/L Potassium (3.5-5.1) mmol/L Chloride (98-107) mmol/L Carbon Dioxide (21-32) mmol/L Anion Gap (3-11) BUN (7-18) mg/dl Creatinine (0.6-1.2) mg/dl Est Cr Clr Drug Dosing ml/min Est GFR ( Amer) Est GFR (Non-Af Amer) BUN/Creatinine Ratio (10-20) Glucose (70-99) mg/dl POC Glucose 155 H 102 H 118 H (70-99) Calcium (8.5-10.1) mg/dl Total Bilirubin (0.2-1) mg/dl Direct Bilirubin (0-0.2) mg/dl AST (15-37) U/L ALT (12-78) U/L Alkaline Phosphatase (45-117) U/L Total Protein (6.4-8.2) gm/dl Albumin (3.4-5.0) gm/dl EBV Capsid Ag IgG Ab U/ML EBV Capsid Ag IgM Ab U/ML EBV EA Restrict+Diffuse U/ML EBV Nuclear Antigen Ab U/ML HIV 1&2 Ab/P24 Ag 4thGn (Neg) Urine Legionella Ag (NOT DETECTED) Flow Cytometry Comment 12/07/18 12/07/18 12/07/18 Range/Units 10:45 07:43 05:46 WBC (4.8-10.8) K/uL RBC (4.2-5.4) M/uL Hgb (12.0-16.0) g/dL Hct (37-47) % MCV (80-100) fL MCH (25-34) pg MCHC (32-36) g/dL RDW Std Deviation (36.4-46.3) fL RDW Coeff of Benjamin (11.5-14.5) % Plt Count (130-400) K/uL MPV (7.4-10.4) fL Absolute Nucleated RBC (0-0) K/uL Nucleated RBC % (auto) % Neutrophils % (Manual) % Lymphocytes % (Manual) % Reactive Lymphs % (Man) % Monocytes % (Manual) % Neutrophils # (Manual) (1.4-6.5) K/uL Total Absolute Neuts (1.4-6.5) K/uL Lymphocytes # (Manual) (1.2-3.4) K/uL Reactive Lymphs # K/uL Total Abs Lymphocytes (1.2-3.4) K/uL Monocytes # (Manual) (0.11-0.59) K/uL Toxic Vacuolation Target Cells Peripher Smr Path Cons Sodium (136-145) mmol/L Potassium (3.5-5.1) mmol/L Chloride (98-107) mmol/L Carbon Dioxide (21-32) mmol/L Anion Gap (3-11) BUN (7-18) mg/dl Creatinine (0.6-1.2) mg/dl Est Cr Clr Drug Dosing ml/min Est GFR ( Amer) Est GFR (Non-Af Amer) BUN/Creatinine Ratio (10-20) Glucose (70-99) mg/dl POC Glucose 148 H (70-99) Calcium (8.5-10.1) mg/dl Total Bilirubin (0.2-1) mg/dl Direct Bilirubin (0-0.2) mg/dl AST (15-37) U/L ALT (12-78) U/L Alkaline Phosphatase (45-117) U/L Total Protein (6.4-8.2) gm/dl Albumin (3.4-5.0) gm/dl EBV Capsid Ag IgG Ab U/ML EBV Capsid Ag IgM Ab U/ML EBV EA Restrict+Diffuse U/ML EBV Nuclear Antigen Ab U/ML HIV 1&2 Ab/P24 Ag 4thGn Neg (Neg) Urine Legionella Ag (NOT DETECTED) Flow Cytometry Comment Pending 12/07/18 12/07/18 12/06/18 Range/Units 05:46 05:46 05:49 WBC 12.65 H (4.8-10.8) K/uL RBC 3.49 L (4.2-5.4) M/uL Hgb 10.6 L (12.0-16.0) g/dL Hct 31.0 L (37-47) % MCV 88.8 (80-100) fL MCH 30.4 (25-34) pg MCHC 34.2 (32-36) g/dL RDW Std Deviation 48.1 H (36.4-46.3) fL RDW Coeff of Benjamin 14.8 H (11.5-14.5) % Plt Count 229 (130-400) K/uL MPV 11.0 H (7.4-10.4) fL Absolute Nucleated RBC 0.08 H (0-0) K/uL Nucleated RBC % (auto) 0.6 % Neutrophils % (Manual) 27.8 % Lymphocytes % (Manual) 12.2 % Reactive Lymphs % (Man) 56.5 % Monocytes % (Manual) 3.5 % Neutrophils # (Manual) 3.52 (1.4-6.5) K/uL Total Absolute Neuts 3.52 (1.4-6.5) K/uL Lymphocytes # (Manual) 1.54 (1.2-3.4) K/uL Reactive Lymphs # 7.15 K/uL Total Abs Lymphocytes 8.69 H (1.2-3.4) K/uL Monocytes # (Manual) 0.44 (0.11-0.59) K/uL Toxic Vacuolation 1+ Target Cells 1+ Peripher Smr Path Cons Cancelled Sodium 134 L (136-145) mmol/L Potassium 3.8 (3.5-5.1) mmol/L Chloride 101 (98-107) mmol/L Carbon Dioxide 25 (21-32) mmol/L Anion Gap 8.0 (3-11) BUN 10 (7-18) mg/dl Creatinine 0.88 (0.6-1.2) mg/dl Est Cr Clr Drug Dosing 79.0 ml/min Est GFR ( Amer) 82.8 Est GFR (Non-Af Amer) 71.4 BUN/Creatinine Ratio 11.8 (10-20) Glucose 82 (70-99) mg/dl POC Glucose (70-99) Calcium 7.9 L (8.5-10.1) mg/dl Total Bilirubin 2.6 H (0.2-1) mg/dl Direct Bilirubin 2.1 H (0-0.2) mg/dl AST 171 H (15-37) U/L ALT 185 H (12-78) U/L Alkaline Phosphatase 382 H (45-117) U/L Total Protein 8.3 H (6.4-8.2) gm/dl Albumin 2.6 L (3.4-5.0) gm/dl EBV Capsid Ag IgG Ab U/ML EBV Capsid Ag IgM Ab U/ML EBV EA Restrict+Diffuse U/ML EBV Nuclear Antigen Ab U/ML HIV 1&2 Ab/P24 Ag 4thGn (Neg) Urine Legionella Ag (NOT DETECTED) Flow Cytometry Comment 12/06/18 12/05/18 Range/Units 05:49 14:59 WBC (4.8-10.8) K/uL RBC (4.2-5.4) M/uL Hgb (12.0-16.0) g/dL Hct (37-47) % MCV (80-100) fL MCH (25-34) pg MCHC (32-36) g/dL RDW Std Deviation (36.4-46.3) fL RDW Coeff of Benjamin (11.5-14.5) % Plt Count (130-400) K/uL MPV (7.4-10.4) fL Absolute Nucleated RBC (0-0) K/uL Nucleated RBC % (auto) % Neutrophils % (Manual) % Lymphocytes % (Manual) % Reactive Lymphs % (Man) % Monocytes % (Manual) % Neutrophils # (Manual) (1.4-6.5) K/uL Total Absolute Neuts (1.4-6.5) K/uL Lymphocytes # (Manual) (1.2-3.4) K/uL Reactive Lymphs # K/uL Total Abs Lymphocytes (1.2-3.4) K/uL Monocytes # (Manual) (0.11-0.59) K/uL Toxic Vacuolation Target Cells Peripher Smr Path Cons Sodium (136-145) mmol/L Potassium (3.5-5.1) mmol/L Chloride (98-107) mmol/L Carbon Dioxide (21-32) mmol/L Anion Gap (3-11) BUN (7-18) mg/dl Creatinine (0.6-1.2) mg/dl Est Cr Clr Drug Dosing ml/min Est GFR ( Amer) Est GFR (Non-Af Amer) BUN/Creatinine Ratio (10-20) Glucose (70-99) mg/dl POC Glucose (70-99) Calcium (8.5-10.1) mg/dl Total Bilirubin (0.2-1) mg/dl Direct Bilirubin (0-0.2) mg/dl AST (15-37) U/L ALT (12-78) U/L Alkaline Phosphatase (45-117) U/L Total Protein (6.4-8.2) gm/dl Albumin (3.4-5.0) gm/dl EBV Capsid Ag IgG Ab 40.20 H U/ML EBV Capsid Ag IgM Ab >160.00 H U/ML EBV EA Restrict+Diffuse 35.70 H U/ML EBV Nuclear Antigen Ab < 18.00 U/ML HIV 1&2 Ab/P24 Ag 4thGn (Neg) Urine Legionella Ag NOT DETECTED (NOT DETECTED) Flow Cytometry Comment (1) Hypertension Hypertension type: essential hypertension Qualified Code(s): I10 - Essential (primary) hypertension
--- NOTE | 2018-12-07 20:57 | Consultation Report ---
DATE OF CONSULTATION: 12/07/2018 REASON FOR CONSULTATION: Lymphadenopathy, etiology unclear. HISTORY OF PRESENT ILLNESS: I had the pleasure of seeing Ms. Auguste today. This is a 58-year-old, very pleasant female admitted to [facility] on 12/05/2018 for general feeling unwell for approximately 3 days. She states the symptoms started to rise about 1 week prior. She reported intermittent fevers, chills and night sweats. She thought initially she was getting better but then subsequently became a lot worse. She also reported some nausea and vomiting prior to admission. Her appetite has been significantly decreased over the past couple of days. She also admits to mild epigastric discomfort and unsure if it is aggravated or alleviated by eating. Preliminary laboratories and CT scan of the chest, abdomen and pelvis was performed, specifically CT scan revealed diffuse lymphadenopathy. However, the vast majority of the lymph nodes identified were subcentimeter. There is a pathologic enlargement of the inguinal lymph nodes. There are findings suspicious for a spiculated mesenteric mass in the superior pelvis with fibrotic/desmoplastic appearance. The interpreting radiologist felt this was most likely an inflammatory mass and could not rule out lymphoma or mesenteric metastatic disease. Borderline splenomegaly with multiple splenic infarcts were also noted. CTA of the chest was negative for pulmonary embolism; however, there was mild cervical, mediastinal and axillary lymphadenopathy. Again, these were all described as subcentimeter. She was also found to have an elevated white count on peripheral blood measurement. Flow cytometry was performed, which was negative for underlying lymphoproliferative disease, acute leukemia or excess blast. I have been asked to render an opinion regarding proceeding with FNA of one of the inguinal lymph nodes. Clinically, the patient is feeling much better and actually feels she could "go shopping." Infectious disease is on consult and believes the patient is most likely suffering from a viral syndrome. Incidentally, the patient reports her had been hospitalized 2 weeks prior with a viral syndrome as well. PAST MEDICAL HISTORY: Significant for diabetes mellitus, hypertension, she has history of gout, gastroesophageal reflux disease as well. HOME MEDICATIONS: Include lactobacillus acidophilus 460 mg p.o. daily, amlodipine 2.5 mg p.o. daily, vitamin C 500 mg p.o. daily, colestipol 1 gram p.o. b.i.d., glimepiride 4 mg p.o. daily, hydrochlorothiazide 25 mg p.o. daily, losartan 100 mg p.o. daily, metformin 500 mg p.o. b.i.d., multivitamin 1 tablet p.o. daily, oxybutynin 15 mg p.o. daily, potassium chloride 15 mEq p.o. daily. ALLERGIES: LATEX, ADHESIVE, FLUCONAZOLE, AND SULFA. SOCIAL HISTORY: She is . She is a nonsmoker, nondrinker. FAMILY HISTORY: Noncontributory. REVIEW OF SYSTEMS: As per HPI most notably for anorexia, fevers, chills and sweats. She also reported intermittent nausea and vomiting and epigastric discomfort (pyrosis). SKIN: No rashes or lesions. No history of dermatoses. HEENT: Denies headaches, lightheadedness or dizziness present. She wears corrective lenses. No acute hearing deficit. No sinus symptoms, sore throat. She does describe xerostomia. LYMPH: No history of lymphoproliferative disease but radiographically demonstrates subcentimeter diffuse lymphadenopathy. CARDIAC: Negative for coronary artery disease, no angina or palpitations. PULMONARY: Negative for COPD. No shortness of breath, dyspnea or orthopnea. No cough or hemoptysis. GASTROINTESTINAL: Presently, no abdominal pain, no nausea or vomiting, no diarrhea or constipation. She reports no previous melena or luis fernando rectal bleeding or hematochezia. GENITOURINARY: No hematuria, dysuria, or urinary incontinence. PSYCHIATRIC: Negative for anxiety, depression or psychosis. MUSCULOSKELETAL: No arthralgias or myalgias. No muscle weakness. NEUROLOGIC: Negative for seizure, stroke, or migraine headache. HEMATOLOGIC: Positive for leukocytosis and normocytic normochromic anemia. PHYSICAL EXAMINATION: GENERAL: Very pleasant 58-year-old female patient in no acute distress. VITAL SIGNS: Temperature 36.8, pulse 100, respiratory rate 18, blood pressure 123/74. SKIN: Warm, dry, noncyanotic without petechia, rash or ecchymosis. HEAD: Atraumatic, normocephalic. EYES: PERRLA, EOMI. Sclerae nonicteric. No conjunctival injection. Nares are patent without rhinorrhea or discharge. Throat is clear. Tongue is midline. Mucous membranes are moist. No buccal lesions or ulcerations appreciated. NECK: Supple. Trachea is midline. LYMPH: She has some scattered cervical and supraclavicular lymphadenopathy. There were all definitely subcentimeter in size. HEART: Regular rate and rhythm. No clicks, rubs, murmurs or gallops. LUNGS: Clear to auscultation bilaterally. ABDOMEN: Soft, nontender, nondistended without palpable hepatosplenomegaly. Bowel sounds are hypoactive. EXTREMITIES: Musculoskeletal strength and pulses are equal in all 4 quadrants. NEUROLOGIC: Grossly intact. LABORATORY DATA: From today, WBC count 12,650, hemoglobin 10.6, platelet count 229,000. Sodium 134, potassium 3.8, chloride 101, carbon dioxide 25, BUN 10, creatinine 0.88, total bilirubin 2.6, direct bilirubin 2.1, AST 171, ALT 185, albumin 2.6. IMPRESSION: 1. Diffuse lymphadenopathy. 2. Leukocytosis. 3. Normocytic normochromic anemia. 4. Hyperbilirubinemia. 5. Elevated liver transaminases. 6. Hypoalbuminemia. PLAN: I have been asked to evaluate for diffuse lymphadenopathy and leukocytosis. Agree with infectious disease consult as I believe this pleasant lady suffers from an underlying virus, which has caused her symptomatology. Careful examination of the serology would suggest she suffers from an underlying mononucleosis. The likelihood of a lymphoproliferative process is highly unusual presenting in this fashion so acutely. I see no harm in proceeding with the FNA, but don't feel that she needs a complete lymphadenectomy unless there is a suggestion of an underlying lymphoproliferative process. I believe her blood counts will normalize as she recovers. Perhaps I would like to see her to follow up for anemia and work her up completely when she is recovered. I have nothing further to add and will await results of the FNA before making further recommendations. Thank you very much for allowing me to participate in her care. If you have any questions or concerns, feel free to contact me at any time. JOSE JUAN
[2018-12-08 05:55] LABS: Hematocrit (blood only) 30.2 % (37-47); Hemoglobin 10.6 g/dL (12.0-16.0); Mean Corpuscular Hgb Conc 35.1 g/dL (32-36); Mean Corpuscular Volume 88.8 fL (80-100); Mean Platelet Volume 10.9 fL (7.4-10.4); Nucleated RBC # (auto) 0.07 K/uL (0-0); Nucleated RBC % (auto) 0.6 %; Platelet Count 211 K/uL (130-400); RDW Standard Deviation 48.6 fL (36.4-46.3)
[2018-12-08 06:46] LABS: Albumin Level 2.5 gm/dl (3.4-5.0); BUN Creatinine Ratio 14.9 (10-20); Bilirubin Direct 1.9 mg/dl (0-0.2); Creatinine Clr Calc Pharmacy 93.9 ml/min; Est GFR (African American) 102.1; Est GFR (Non-African American) 88.1; Magnesium 2.3 mg/dl (1.8-2.4); Potassium 4.1 mmol/L (3.5-5.1)
[2018-12-08 06:47] LABS: Bilirubin,Total 2.3 mg/dl (0.2-1); Total Protein 8.5 gm/dl (6.4-8.2)
[2018-12-08 06:57] LABS: ALC (manual) 8.41 K/uL (1.2-3.4); Lymphocytes # (manual) 1.23 K/uL (1.2-3.4); Lymphocytes % (manual) 10.6 %; Monocytes # (manual) 0.31 K/uL (0.11-0.59); Monocytes % (manual) 2.7 %; Neutrophils % (manual) 24.8 %; Reactive Lymphocytes # (manual) 7.18 K/uL; Target Cells 1+
[2018-12-08] MEDS: LEVALBUTEROL HCL 0.63 MG/3 ML NEB NEB SCH ×3 (07:17→19:41)
--- NOTE | 2018-12-08 08:25 | XRay Report ---
XR chest 2V routine HISTORY: 58 years-old Female lung infiltrates follow-up study in a patient with bilateral lung opaci ties COMPARISON: Chest radiograph 12/04/2018, CTA chest 12/05/2017 TECHNIQUE: PA and lateral views of the chest FINDINGS: Cardiomediastinal and hilar silhouettes are unchanged. No pneumothorax, large pleural effusion or ove rt pulmonary edema. Unchanged mild blunting about the left costophrenic angle. Unchanged ill-defined patchy bibasilar opacities. Bones of the chest appear grossly intact. IMPRESSION: Unchanged patchy bibasilar opacities suggestive of probable atelectasis/scarring. Superim posed pneumonitis is also within the differential. The above report was generated using voice recognition software. It may contain grammatical, syntax o r spelling errors. Electronically signed by: Ant Oliveira M.D. 12/08/2018 8:23 AM
[2018-12-08] MEDS: INSULIN ASPART 100 UNITS/ML 3 ML PEN SC SCH ×4 (08:29→20:37)
[2018-12-08] MEDS: ASCORBIC ACID 500 MG TAB PO SCH (08:30)
[2018-12-08] MEDS: AMLODIPINE BESYLATE 5 MG TAB PO SCH (08:31)
[2018-12-08] MEDS: MULTIVITAMIN TAB PO SCH (08:31)
[2018-12-08] MEDS: LOSARTAN POTASSIUM 50 MG TAB PO SCH (08:31)
[2018-12-08] MEDS ORDERED: DOXYCYCLINE HYCLATE 100 MG CAP PO SCH ×2 (09:00→19:00)
--- NOTE | 2018-12-08 10:25 | Infectious Disease Progress Nt ---
Date of Service December 08, 2018 Assessment & Plan (1) Mononucleosis, infectious, with hepatitis: 58-year-old female with acute febrile illness with leukocytosis, transaminitis, adenopathy, positive Monospot, and unusual pelvic mass. Serologies highly suggestive of acute EBV infection. Will discontinue antibiotics at this time, await final results of lymph node biopsy. Will follow. Subjective Patient seen in follow-up for fever, lymphadenopathy. Complaining of mouth soreness, difficulty swallowing, and coating of tongue. Lymph node biopsy pending. Remains afebrile. EBV serology consistent with acute EBV infection. Review of Systems All systems reviewed & are unremarkable except as noted in HPI & below Physical Exam Vital Signs (Past 24 Hours): Last Vital Signs Temp 37.1 C 12/08/18 07:46 Pulse 92 H 12/08/18 07:46 Resp 18 12/08/18 07:46 BP 125/68 12/08/18 07:46 Pulse Ox 94 12/08/18 07:46 Constitutional: WD/WN, vitals as above comfortable; no acute distress Eyes: PERRL, conjunctivae normal, anicteric sclerae ENMT: Ears: no external ear abnormality Nose: no external nose abnormality Mouth: + oropharynx abnormality (Thrush) Neck: trachea midline, no thyromegaly neck nontender Respiratory: normal respiratory effort, lungs clear to auscultation normal percussion; no respiratory distress and does not use accessory muscles Cardiovascular: Rate/Rhythm: regular rate and regular rhythm Heart Sounds: normal S1 and normal S2; no gallop, no murmur and no cardiac rub Vessels: normal peripheral pulses; no JVD Gastrointestinal (Abdomen): normal bowel sounds, soft, nontender, no hepatosplenomegaly Musculoskeletal: no cyanosis or clubbing, extremities motor strength 5/5 Spine: thoracic spine normal to inspection and lumbar spine normal to i nspection; no cervical spinal tenderness Skin: no rashes, warm and dry normal turgor; no lesions Neurologic: patellar DTR's 2+ bilat, sensation intact moves all extremities and awake; no focal motor deficits Motor/Sensory: no sensory deficit Psychiatric: A+Ox3, euthymic affect Orientation: cooperative Lymphatic: no cervical or axillary lymphadenopathy no inguinal lymphadenopathy Results & Data Laboratory Results Short CBC 12/08/18 Range/Units 05:37 WBC 11.60 H (4.8-10.8) K/uL Hgb 10.6 L (12.0-16.0) g/dL Hct 30.2 L (37-47) % Plt Count 211 (130-400) K/uL BMP 12/08/18 05:37 Sodium 134 L Potassium 4.1 Chloride 101 Carbon Dioxide 26 BUN 11 Creatinine 0.74 Glucose 92 Calcium 8.0 L Liver Function 12/08/18 Range/Units 05:37 Total Bilirubin 2.3 H (0.2-1) mg/dl Direct Bilirubin 1.9 H (0-0.2) mg/dl AST 149 H (15-37) U/L ALT 163 H (12-78) U/L Alkaline Phosphatase 382 H (45-117) U/L Albumin 2.5 L (3.4-5.0) gm/dl Diagnostic Findings Microbiology 12/04/18 23:07 Blood Blood Culture - Preliminary No growth to date. 12/04/18 23:00 Blood Blood Culture - Preliminary No growth to date.
[2018-12-08] MEDS: COLESTIPOL HCL 1 GM TAB PO SCH ×2 (11:17→20:38)
[2018-12-08] MEDS: DEXAMETHASONE CONC 3.75 MG, NYSTATIN 30 ML, DiphenhydrAMINE Syrup 300 MG, ORA-SWEET SYR... PO SCH ×3 (11:17→20:36)
[2018-12-08] MEDS: ENOXAPARIN INJ 40 MG/0.4 ML SYR SQ SCH (11:18)
--- NOTE | 2018-12-08 12:17 | Progress Note ---
DATE: 12/08/2018 PULMONARY PROGRESS NOTE TIME: 11:45 a.m. HISTORY OF PRESENT ILLNESS: The patient states she has lost her appetite. She is not eating hardly anything. The only thing that tastes good is orange juice. She still complains of dry mouth. She still has her cough precipitated by deep breaths. It is nonproductive. She did have her biopsy done of the inguinal lymph node yesterday without difficulty. OBJECTIVE: GENERAL: The patient appeared in no distress. VITAL SIGNS: Temperature is 37.1. Maximum temperature past 24 hours is 37.6. Heart rate is 92 per minute. Rhythm is regular. Blood pressure 125/68. LUNGS: Lung silver are clear. Breath sounds are diminished. Coughing was stimulated by deep breathing as noted. Saturation today is 94% on room air and this reflects an improvement compared with yesterday. LABORATORY DATA: The Joe-Levi virus IgG is elevated at 40.2 and IgM was elevated at greater than 160. The immunology studies are still pending from send out. Liver functions today remain elevated with AST 149, ALT 163 and alkaline phosphatase 382. Chest x-ray done today shows persistence of the mild patchy infiltrates at the bases. IMPRESSION: 1. Mononucleosis. 2. Lingular infiltrate and atelectatic changes at the lung base. 3. Mild mediastinal adenopathy. 4. Obstructive sleep apnea. RECOMMENDATIONS: The patient's status is improved from the perspective of improved oxygenation. She still has other issues as noted above. The patient still does not feel like she is feeling all that much better. It would seem that the mono may account for most if not all of her symptoms which hopefully will resolve with time. We will see again if requested.
--- NOTE | 2018-12-08 19:04 | Hospitalist Progress Note ---
Date of Service December 08, 2018 Assessment & Plan (1) Mononucleosis, infectious, with hepatitis: Clinical and lab presentation all c/w acute mono. EBV titers returned and IgM is positive solidifying the diagnosis. All radiographic and lab abnormalities are explained by acute mono. I was present with Dr. Timmons today during our bedside rounds and we answered her questions, explained the natural history of mono, etc. Although she has thrush her pharynx is largely spared and she reports no dysphagia/odynophagia. Thus, deferring on prednisone. A lymph node biopsy was performed yesterday to exclude lymphoma or other lymphoproliferative disorder but likely the biopsy will be negative for such. Continue supportive care, repeat labs in am, etc. Present on Admission?: Yes (2) Rosario albicans infection: Thrush/oral candidiasis. Magic mouthwash ac/hs. (3) Diabetes mellitus: Control is excellent. (4) Hypertension: Controlled. Cont current meds. (5) Lymphadenopathy: see discussion above in "mono, infectious..." s/p lymph node bx - awaiting results. (6) Pneumonia: likely viral (due to the actual mono itself). bacterial possible but less likely. has received 5+ days of IV antibiotic therapy - spoke with Dr. Timmons and we are discontinuing the abx. (7) Pelvic mass: at the MINIMUM she will need repeat imaging. if repeat imaging continues to show this abnormality then will need biopsy. (8) DVT prophylaxis: lovenox daily hydrate today ambulate home tomorrow Subjective main complaint is that of tongue and buccal mucosa irritation & dryness denies significant sore throat or dysphagia feels very tired numerous questions during the visit today appetite fair at best but is drinking fluids Constitutional: + fever, + fatigue, + weakness and + anorexia Ear, Nose, Mouth, Throat: no sore throat Respiratory: + cough; no dyspnea Cardiovascular: no chest pain Gastrointestinal: no abdominal pain Physical Exam Vital Signs (Past 24 Hours): Last Vital Signs Temp 38.0 C H 12/08/18 16:00 Pulse 96 H 12/08/18 16:00 Resp 18 12/08/18 16:00 BP 111/74 12/08/18 16:00 Pulse Ox 92 12/08/18 16:00 Constitutional: well developed, well nourished and + morbidly obese; no acute distress ENMT: Mouth: + oropharynx abnormality (erythema ), + oral mucosal abnormality (dry MM) and + tongue abnormality (dry with thrush plaques) Respiratory: normal respiratory effort, lungs clear to auscultation Cardiovascular: RRR, no murmur, no edema Heart Sounds: normal S1 and normal S2 Vessels: posterior tibial pulses present and dorsalis pedis pulses present; no JVD Gastrointestinal (Abdomen): Inspection/Auscultation: abdomen normal to inspection and normal bowel sounds; abdomen not distended Percussion/Palpation: abdomen soft and + hepatosplenomegaly; abdomen nontender, no guarding and abdomen not rigid Skin: no rashes, warm and dry Lymphatic: + cervical lymphadenopathy (multiple 1.5cm nodes b/l ) and + subclavicular lymphadenopathy (right, 1.5cm ) Results & Data Laboratory Results Laboratory Results - last 24 hr 12/07/18 12/08/18 12/08/18 20:45 05:37 05:37 WBC 11.60 H RBC 3.40 L Hgb 10.6 L Hct 30.2 L MCV 88.8 MCH 31.2 MCHC 35.1 RDW Std Deviation 48.6 H RDW Coeff of Benjamin 15.0 H Plt Count 211 MPV 10.9 H Absolute Nucleated RBC 0.07 H Nucleated RBC % (auto) 0.6 Neutrophils % (Manual) 24.8 Lymphocytes % (Manual) 10.6 Reactive Lymphs % (Man) 61.9 Monocytes % (Manual) 2.7 Neutrophils # (Manual) 2.88 Total Absolute Neuts 2.88 Lymphocytes # (Manual) 1.23 Reactive Lymphs # 7.18 Total Abs Lymphocytes 8.41 H Monocytes # (Manual) 0.31 Target Cells 1+ Sodium 134 L Potassium 4.1 Chloride 101 Carbon Dioxide 26 Anion Gap 7.0 BUN 11 Creatinine 0.74 Est Cr Clr Drug Dosing 93.9 Est GFR ( Amer) 102.1 Est GFR (Non-Af Amer) 88.1 BUN/Creatinine Ratio 14.9 Glucose 92 POC Glucose 155 H Calcium 8.0 L Magnesium 2.3 Total Bilirubin 2.3 H Direct Bilirubin 1.9 H AST 149 H ALT 163 H Alkaline Phosphatase 382 H Total Protein 8.5 H Albumin 2.5 L 12/08/18 12/08/18 12/08/18 07:38 11:56 16:38 WBC RBC Hgb Hct MCV MCH MCHC RDW Std Deviation RDW Coeff of Benjamin Plt Count MPV Absolute Nucleated RBC Nucleated RBC % (auto) Neutrophils % (Manual) Lymphocytes % (Manual) Reactive Lymphs % (Man) Monocytes % (Manual) Neutrophils # (Manual) Total Absolute Neuts Lymphocytes # (Manual) Reactive Lymphs # Total Abs Lymphocytes Monocytes # (Manual) Target Cells Sodium Potassium Chloride Carbon Dioxide Anion Gap BUN Creatinine Est Cr Clr Drug Dosing Est GFR ( Amer) Est GFR (Non-Af Amer) BUN/Creatinine Ratio Glucose POC Glucose 96 108 H 105 H Calcium Magnesium Total Bilirubin Direct Bilirubin AST ALT Alkaline Phosphatase Total Protein Albumin (1) Diabetes mellitus Diabetes mellitus type: type 2 Diabetes mellitus penitentiary insulin use: without penitentiary use Diabetes mellitus complication status: without compl ication Qualified Code(s): E11.9 - Type 2 diabetes mellitus without complications (2) Hypertension Hypertension type: essential hypertension Qualified Code(s): I10 - Essential (primary) hypertension (3) Pneumonia Pneumonia type: due to unspecified organism Laterality: left Lung location: unspecified part of lung Qualified Code(s): J18.9 - Pneumonia, unspecified organism
[2018-12-09 05:57] LABS: Mean Corpuscular Hgb Conc 35.7 g/dL (32-36); Mean Corpuscular Volume 89.2 fL (80-100); Mean Platelet Volume 11.4 fL (7.4-10.4); Nucleated RBC # (auto) 0.06 K/uL (0-0); Nucleated RBC % (auto) 0.7 %; Platelet Count 188 K/uL (130-400); RDW Coefficient of Variation 15.1 % (11.5-14.5); Red Blood Count 3.14 M/uL (4.2-5.4); White Blood Count 9.74 K/uL (4.8-10.8)
[2018-12-09 06:29] LABS: Albumin Level 2.3 gm/dl (3.4-5.0); Calcium 7.9 mg/dl (8.5-10.1); Creatinine Clr Calc Pharmacy 92.7 ml/min; Est GFR (African American) 100.4; Est GFR (Non-African American) 86.6; Potassium 4.6 mmol/L (3.5-5.1)
[2018-12-09 06:32] LABS: Albumin Globulin Ratio 0.4 (0.9-2); Bilirubin,Total 2.8 mg/dl (0.2-1); Globulin 5.9 gm/dl (2.5-4.0); Total Protein 8.2 gm/dl (6.4-8.2)
[2018-12-09 06:53] LABS: Basophils # (auto) 0.12 K/uL (0-0.2); Basophils % (auto) 1.2 %; Immature Granulocytes # (auto) 0.04 K/uL (0.00-0.02); Immature Granulocytes % (auto) 0.4 %; Lymphocytes # (auto) 5.88 K/uL (1.2-3.4); Lymphocytes % (auto) 60.4 %; Monocytes # (auto) 1.54 K/uL (0.11-0.59); Monocytes % (auto) 15.8 %; Neutrophils # (auto) 2.16 K/uL (1.4-6.5); Neutrophils % (auto) 22.2 %
[2018-12-09] MEDS: LEVALBUTEROL HCL 0.63 MG/3 ML NEB NEB SCH (07:08)
[2018-12-09] MEDS: DEXAMETHASONE CONC 3.75 MG, NYSTATIN 30 ML, DiphenhydrAMINE Syrup 300 MG, ORA-SWEET SYR... PO SCH ×2 (07:41→11:02)
[2018-12-09 07:56] VITALS: TEMP 98.6; O2SAT 92
[2018-12-09] MEDS: AMLODIPINE BESYLATE 5 MG TAB PO SCH (08:41)
[2018-12-09] MEDS: LOSARTAN POTASSIUM 50 MG TAB PO SCH (08:41)
[2018-12-09] MEDS: MULTIVITAMIN TAB PO SCH (08:42)
[2018-12-09] MEDS: ASCORBIC ACID 500 MG TAB PO SCH (08:42)
[2018-12-09] MEDS: ENOXAPARIN INJ 40 MG/0.4 ML SYR SQ SCH (08:44)
[2018-12-09] MEDS: INSULIN ASPART 100 UNITS/ML 3 ML PEN SC SCH ×2 (08:45→11:02)
[2018-12-09] MEDS: COLESTIPOL HCL 1 GM TAB PO SCH (11:02)
[2018-12-09 11:31] VITALS: BP 130/78; PULSE 99
[2018-12-09 15:18] LABS: NEO FLOW Lymph/Leuk Stnd SEE NEO MISC
[2018-12-11 04:21] LABS: Anti Cardiolipin Ab IgG 28 GPL (< = 14); Anti Cardiolipin Ab IgM 59 MPL (< = 12); Anti Nuclear Antibody Screen NEGATIVE (NEGATIVE); Anti-Centromere Ab <1.0 NEG AI (<1.0 NEG); Anti-SS-A <1.0 NEG AI (<1.0 NEG); Anti-SS-B <1.0 NEG AI (<1.0 NEG); Chromatin Antibody <1.0 NEG AI (<1.0 NEG); Complement C3 128 MG/DL (83-193); DNA ds Crithidia NEGATIVE (NEGATIVE); Microsomal Ab <1 IU/ML (<9); Sm Antibody <1.0 NEG AI (<1.0 NEG)
--- NOTE | 2018-12-14 11:22 | Discharge Summary ---
Date of Service date of admission - 12/05/18 date of discharge - 12/09/18 Admission HPI Per Admitting Provider Ms. Auguste is a 58-year-old woman with a history of diabetes mellitus, hypertension, urinary urgency who presents to the emergency department due to a 3-day history of feeling unwell, with a dry cough, shortness of breath and night sweats. The patient states she thinks her symptoms began approximately 1 week ago. She notes that she was frequently in and out of the hospital as well as [facility], visiting her and another relative. She states that she began to feel short of breath on Wednesday, with minimal exertion, such as walking to her kitchen. She denies any chest pain or palpitations. She states that she checked her temperature at home and it was normal, but she did report chills and night sweats. She saw her primary care doctor who put her on a course of doxycycline. She took this for the past 2 days, but states her symptoms did not improve, but in fact worsened. She reports that she felt nauseous tonight and had an episode of vomiting. She states that her appetite has been significantly decreased over the last few days. She has a history of chronic diarrhea which began after she had her gallbladder removed. She states her diarrhea is no worse than usual. She does endorse mild epigastric discomfort, and states that this pain comes and goes. She is unsure if it is related to eating. She states that this feels different from her usual reflux symptoms. She denies unintentional weight loss, or a history of night sweats prior to feeling unwell. She denies a recent history of travel. She has no family history of leukemia or lymphoma. Her mother has a history of breast cancer, and her father has a history of a "lung problem" which she states was rare and Dr. Stokes wrote a case report on it. She is unsure of further details surrounding his lung problem. She also states that her was recently admitted to [facility] due to pancreatitis that was presumed to be secondary to a viral illness. Of note, she is a non-smoker, does not drink alcohol and denies use of recreational drugs. Principal Diagnosis acute mononucleosis with hepatitis Discharge Exam Constitutional well developed, well nourished and + morbidly obese; no acute distress ENMT Mouth: + oropharynx abnormality (erythema ), + oral mucosal abnormality (dry MM) and + tongue abnormality (dry with thrush plaques) Respiratory normal respiratory effort, lungs clear to auscultation Cardiovascular RRR, no murmur, no edema Heart Sounds: normal S1 and normal S2 Vessels: posterior tibial pulses present and dorsalis pedis pulses present; no JVD Gastrointestinal (Abdomen) Inspection/Auscultation: abdomen normal to inspection and normal bowel sounds; abdomen not distended Percussion/Palpation: abdomen soft and + hepatosplenomegaly; abdomen nontender, no guarding and abdomen not rigid Skin no rashes, warm and dry Lymphatic + cervical lymphadenopathy (multiple 1.5cm nodes b/l ) and + subclavicular lymphadenopathy (right, 1.5cm ) Discharge Data Allergies Allergy/AdvReac Type Severity Reaction Status Date / Time latex Allergy Intermediate RASH. Verified 12/04/18 22:48 adhesive Allergy Unknown LOCAL RASH Verified 12/04/18 22:48 fluconazole Allergy Unknown RASH ALL Verified 12/04/18 22:48 OVER BODY Sulfa (Sulfonamide Allergy Unknown BLISTERS Verified 12/04/18 22:48 Antibiotics) IN MOUTH Consultations pulmonary - Roque Sage DO infectious disease - Rolando Timmons MD hematology/oncology - Liborio August DO Ordered Studies 1. CTA chest - IMPRESSION: 1. No evidence of acute pulmonary embolism 2. Mild cervical, mediastinal and axillary lymphadenopathy. An underlying lymphoproliferative disorder cannot be excluded. 3. Multinodular thyroid gland 4. Mild hepatic steatosis and possible splenomegaly 5. Basilar opacities statistically atelectatic 2. CT abd/pelvis - IMPRESSION: 1. Significant diffuse lymphadenopathy though the vast majority of lymph nodes are subcentimeter with benign morphologies. Pathologic enlargement of inguinal lymph nodes. Consider ultrasound-guided fine-needle aspiration of one of the right inguinal lymph nodes. A lymphoproliferative disease cannot be excluded. 2. Findings suspicious for a spiculated mesenteric mass in the superior pelvis with fibrotic/desmoplastic appearance and subtle retractile changes on surrounding small bowel loops. There is trace associated interloop fluid. This appearance could be seen in the setting of an inflammatory mass that the patient has a history of inflammatory bowel disease, mesenteric metastasis in the setting of a small bowel neuroendocrine/carcinoid tumor, sclerosing mesenteritis, or lymphoma. Correlate with the patient's history. 3. Hepatomegaly and hepatic steatosis. Correlate with liver function tests to exclude steatohepatitis as a cause for right upper quadrant pain. 4. Borderline splenomegaly with multiple splenic infarcts. This could have either an embolic etiology or intrinsic splenic etiology. 3. fine needle biopsy of lymph node Hospital Course (1) Mononucleosis, infectious, with hepatitis: Clinical and lab presentation was all consistent with acute mono. EBV titers returned and IgM was strongly positive solidifying the diagnosis. All radiographic and lab abnormalities were explained by acute mono. The patient started to complain of sore throat prior to discharge and thus a short course of prednisone was given for the pharyngitis portion of the illness to aid in swallowing and maintaining hydration. To be complete and to rule out a lymphoproliferative disorder a lymph node biopsy was performed during the stay and the biopsy was highly suggestive of a viral reactive process rather than malignancy. The patient was counseled heavily on the natural course of mono and the need for follow-up to ensure normalization of her CBC, LFTs, etc. (2) Rosario albicans infection: Thrush/oral candidiasis. Magic mouthwash ac/hs. Improving prior to discharge. (3) Diabetes mellitus: Control was excellent while here. (4) Hypertension: Controlled without the use of her HCTZ and thus it was advised to HOLD the HCTZ at discharge. BP follow-up with PCP recommended. (5) Lymphadenopathy: see discussion above in "mono, infectious..." s/p lymph node biopsy with results suggestive of acute, reactive process rather than lymphoproliferative disorder. (6) Pneumonia: likely viral (due to the actual mono itself). bacterial possible but less likely. received 5+ days of IV antibiotic therapy and antibiotics were discontinued prior to discharge. (7) Pelvic mass: See CT of the abd/pelvis report. The mass was located in the mesentery. It's association with the acute mono was unlikely. At the MINIMUM she will need repeat imaging over the next 4-6 weeks to ensure resolution. If repeat imaging continues to show this abnormality then will need biopsy of this possible mass. Total Time Total Time Spent Total Time Spent (In Minutes): 40 Total Time Includes: Examination of the Patient, Discharge Planning, Medication Reconciliation and Communication With Other Providers Discharge Plan Discharge Items Patient Disposition: Home - Self-Care Reason For Visit: possible pneumonia, abnormal liver tests & CBC Discharge Diagnosis: acute infectious mononucleosis ("mono") Discharge Goals: Diagnostic testing and Therapeutic intervention Activity: As commented below Activity Comment: no contact sports or activities that increase chances of spleen injury Non-emergency contact: Primary Care Provider and Specialist Call non-emergency contact if: you have any medication questions and your symptoms worsen Follow-up/Referrals: Caryn Jc PA-C [Primary Care Provider] - 12/12/18 11:00 am (Please, follow up with Caryn Jc PA-C on WednesdayDecember 12 at 11:00 am. *If you need to change this appointment, call the office at [phone].) Rolando Timmons MD [Physician] - 12/19/18 10:30 am (Please, follow up with Dr. Timmons (infectious disease specialist) on WednesdayDecember 19 at 10:30 am. *His office is located in [address] of [facility]. This is the big building next to this hospital. If you need to change this appointment, call the office at [phone].) Diet: Carb Consistent or DM2 Addtl Provider Instructions: From Damir Rangel - Hospitalist - You were admitted due to concerns of pneumonia, abnormal liver function tests, and abnormal CBC (blood counts). Your constellation of symptoms, blood work abnormalities, and other signs all pointed towards acute infectious mono. Bledsoe is caused by a virus that is present everywhere in the environment. We ultimately got back from the lab that your mono titers were indeed positive solidifying the diagnosis of mono. With respect to the possible pneumonia -- the areas on the chest x-rays and CAT scans of concern could have been from the mono virus itself or a bacterium. Either way you did receive IV antibiotics for possible bacterial pneumonia. You also had troubles with severe dry mouth, tongue irritation, and swollen tonsils. At this time we recommend the following - 1. for probable thrush (yeast on the tongue) -- take magic mouthwash 5cc by mouth before meals and at bedtime. Swish and swallow. Take for 7-10 days. 2. for enlarged tonsils and difficulty swallowing -- take a 5-day course of prednisone; start this today. Know that the prednisone may cause your blood sugars to rise. The prednisone is the only thing we have to shrink the tonsils some to make it easier to swallow. 3. focus on good hydration over the next couple of weeks. Your appetite will gradually improve with time. It is difficult to say how long it will take for it to improve. 4. mono can cause all of your current symptoms (fatigue, sore throat, anorexia, etc) for up to 6 weeks in duration. 5. HOLD your hydrochlorothiazide blood pressure medication for now. Your blood pressures have been normal without it. It can likely be resumed some time next week as your eating becomes more robust. 6. use your best judgement with your metformin. Right now your blood sugars are controlled without it. With the prednisone and as your appetite returns you will need to resume it at some point . If your sugars are consistently less than 150 you can likely hold it for now. 7. I would stop your vitamin C tablet; this can cause mouth irritation, etc. You can probably resume it down the line. 8. hold your potassium supplement since your hydrochlorothiazide will be on hold. 9. have Ms. Jc repeat your CBC and liver tests along with electrolytes next week when you see her. 10. you do not need to "quaratine" yourself at home while dealing with mono. But, I would have people who are ill, receiving chemotherapy, young children, etc avoid visiting you for some time until you are well on your way to recovery. 11. follow-up -- see separate section. 12. again you may have low-grade fevers (99/100) for another 1-2 weeks or longer from the mono virus. This is not unusual. 13. return to [facility] if - you see yellowing of your eyes or skin, you have very high fevers over 101-102, you are short of breath or have chest pains, you are vomiting and can't keep anything down, any other concerns. Prescriptions: New mouthwash compounding base 227 mouthwash 1 ea Mucous Membrane ACHS Qty: 150 RF: 1 Continued multivitamin Tablet 1 tab PO DAILY RF: 0 oxybutynin chloride 15 mg Tablet Extended Release 24hr 15 mg PO DAILY RF: 0 amlodipine 2.5 mg Tablet 2.5 mg PO DAILY RF: 0 glimepiride 4 mg Tablet 4 mg PO QAM RF: 0 losartan 100 mg Tablet 100 mg PO DAILY RF: 0 colestipol 1 gram Tablet 1 g PO BID RF: 0 Lactobacillus acidophilus [Florajen] 460 mg (20 billion cell) Capsule 460 mg PO DAILY RF: 0 Discontinued metformin 500 mg Tablet 500 mg PO BID RF: 0 potassium chloride [Klor-Con M20] 20 mEq Tablet,Er Particles/Crystals 20 meq PO DAILY RF: 0 ascorbic acid (vitamin C) [Vitamin C] 500 mg Tablet 500 mg PO DAILY RF: 0 hydrochlorothiazide 25 mg Tablet 25 mg PO DAILY RF: 0 Stand-Alone Forms: My [facility]/Other Patient Handouts: Mononucleosis Discharge Orders: Discharge Order (Routine); Ordered 12/09/18 Ordered By: Damir Rangel Admission Data Admit Date/Time: 12/05/18 01:56 Attending Provider: Damir Rangel Admit Provider: Yao Kwong Primary Care Provider: Caryn Jc Other Providers: Cortez Lawton ; Christiano Stokes ; Elizabeth Meier ; Isra Baca Service: Telemetry Medical Other Interventions: Discharge Summary Assessment (RN) Last Done: 12/09/18 11:28 Pending Studies at Discharge: Yes Studies:: final pathology report from lymph node biopsy but preliminary report shows "reactive" process (Benign) due to mono DC Date/Time DO NOT enter until pt leaves facility: 12/09/18 11:50
== END 2018-12-09 11:50 | disposition home or self-care (01) | DRG 871 ==
LOC: ED 22:17 → SUATTDRO 12-05 01:56 → 2N 12-05 01:56

== ENCOUNTER 2024-04-20 09:28 | Inpatient (IN) ==
--- NOTE | 2024-04-05 16:22 | Anesthesiology Consultation ---
Date of Service April 05, 2024 Assessment & Plan (1) Encounter for pre-operative examination: - Check BSG AM DOS - Infectious disease screening: Per assessment on 04/05/24: No known recent infectious disease contacts or current infectious disease symptoms. - Roberthro instructions: Patient informed by LOWELL BAEZ to stop 7 days prior to surgery- voiced understanding. DOS 04/20/24. Advised last dose to be 04/09/24. - General surgery visit (03/29/24): "Mesenteric mass.. We really should get a tissue diagnosis. Interventional radiology will not want to perform this since it is on small bowel which moves unpredictably making IR biopsies generally unsafe. The approach is to assume it is a carcinoid. I would want to run the entire small bowel from ligament of Treitz to the cecum. I should be able to find a 2 cm mass. Rather than simple biopsy which could compromise blood flow to that segment of bowel I would recommend segmental resection of the bowel associated with the mesenteric mass. This would also allow us to obtain lymph nodes in case it does come back as a carcinoid tumor. If I would see other areas of suspicion I would either need to biopsy or resect those as well.. We will schedule her in the near future for diagnostic laparoscopy partial small bowel resection and surgery as needed." - Urology visit (04/05/24): "Urinary urgency.. Established patient here for routine follow-up of urinary urgency.. Continues to do well with Myrbetriq 50 mg daily.. She reports occasional urgency, rare incontinence.. Overall feels that Myrbetriq continues to be beneficialcontinue.. We discussed switching her Myrbetriq administration to the evening to see if that gives her better control for her morning routine.. If not, she can switch back to previous timing.. Continue with behavioral modifications.. We reviewed advanced therapies including Botox and sacral neuromodulation to consider if symptoms worsen.. Will plan to follow-up in 3 to 4 months for symptom check, call sooner with any issues or concerns" - Hx difficult intubation: Per LOWELL BAEZ phone interview, patient states "difficult to intubate and a smaller tube was needed" > Total lap hysterectomy with BSO 04/28/2013 at [facility]: Patient intubated with glidescope#3, ETT 7.0, "easy pass through.." No issues noted per post-op anesthesia progress note. Chart Review Chart Review: Acceptable Risk for Surgery and Patient NOT seen in Pre Admission Testing History Surgery Operation Date: 04/20/24 12:50 Proposed Procedures p Diagnostic Laparoscopy, Partial Small Bowel Resection, Surgery as Needed - Munir Sultana DO Height/Weight Height: 5 ft 5.5 in Weight: 97.522 kg Allergies Allergy/AdvReac Type Severity Reaction Status Date / Time adhesive Allergy Unknown Localized Verified 04/05/24 16:13 rash fluconazole Allergy Unknown Diffuse Verified 04/05/24 16:13 rash Iodinated Contrast Media Allergy Unknown Rash, SOB, Verified 04/05/24 16:13 hives iodine Allergy Unknown Rash Verified 04/05/24 14:57 latex Allergy Unknown Rash Verified 04/05/24 16:13 Sulfa (Sulfonamide Allergy Unknown BLISTERS Verified 04/05/24 14:57 Antibiotics) IN MOUTH azithromycin AdvReac Unknown Blistering, Verified 04/05/24 16:13 mouth sores contact metal agent AdvReac Unknown Redness of Verified 04/05/24 14:58 Skin Medications Home Medications Medication Instructions Recorded Confirmed Last Taken Lactobacillus acidophilus 20 460 mg PO QAM 12/04/18 04/05/24 11/22/22 billion cell capsule (Florajen Acidophilus) multivitamin 1 tab PO QAM 12/04/18 04/05/24 11/22/22 blood sugar diagnostic (OneTouch #10 ea 03/03/21 04/05/24 Unknown Ultra Blue Test Strip) lancets (OneTouch UltraSoft 03/03/21 04/05/24 Unknown Lancets) lancets (OneTouch UltraSoft #50 ea 03/03/21 04/05/24 Unknown Lancets) ascorbic acid (vitamin C) 1,000 mg 500 mg PO QAM 11/17/22 04/05/24 11/22/22 tablet (Vitamin C With Kelli Hips) amlodipine 2.5 mg tablet 2.5 mg PO QAM #90 tabs 06/29/23 04/05/24 Unknown glimepiride 4 mg tablet 4 mg PO QAM #90 tabs 07/26/23 04/05/24 Unknown calcium carbonate (Calcium 600) 600 mg PO QAM 09/16/23 04/05/24 Unknown cholecalciferol (vitamin D3) 50 50 mcg PO QAM 09/16/23 04/05/24 Unknown mcg (2,000 unit) capsule hydrochlorothiazide 25 mg tablet 25 mg PO QAM #90 tabs 09/23/23 04/05/24 Unknown clotrimazole-betamethasone 1 1 applic topical UD PRN skin 11/18/23 04/05/24 Unknown %-0.05 % topical cream irritation #15 grams tirzepatide 10 mg/0.5 mL 10 mg (0.5 mL) subcut WK #2 mL 03/28/24 04/05/24 Unknown subcutaneous pen injector colestipol 1 gram tablet 1 g PO BID 03/29/24 04/05/24 Unknown metformin 500 mg tablet,extended 500 mg PO UD 04/05/24 04/05/24 Unknown release 24 hr mirabegron 50 mg tablet,extended 50 mg PO QAM 04/05/24 04/05/24 Unknown release 24 hr (Myrbetriq) olmesartan 40 mg tablet 40 mg PO QAM 04/05/24 04/05/24 Unknown Past Medical History Medical History 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 GERD (gastroesophageal reflux disease) History of sinus tachycardia Told in the past "fast heart beat" NSR at 89bpm on preop EKG 03/31/24 HTN (hypertension) Mesenteric mass NAFLD (nonalcoholic fatty liver disease) Obesity (BMI 30-39.9) Obstructive sleep apnea CPAP Overactive bladder Type 2 diabetes mellitus Urinary urgency Ongoing issue Past Family History Family History Mother Breast cancer Sister Cancer Father Cancer skin cancer on his head Hypertension Stroke Pre-diabetes Aunt Family history of diabetes mellitus Other Family history of malignant neoplasm of breast Denies family history of Ovarian cancer Prostate cancer Diabetes Myocardial infarction Lung cancer Colorectal cancer Past Surgical History Surgical History History of cholecystectomy History of colonoscopy History of difficult intubation Patient states "difficult to intubate and a smaller tube was needed" > Total lap hysterectomy with BSO 04/28/2013 at [facility]: Patient intubated with glidescope#3, ETT 7.0, "easy pass through.." No issues noted per post-op anesthesia progress note. History of hysterectomy with bilateral oophorectomy robotic assisted lap History of postoperative nausea and vomiting Past Anesthesia History Difficult Airway ( Per PAT RN phone interview, patient states "difficult to intubate and a smaller tube was needed" > Total lap hysterectomy with BSO 04/28/2013 at [facility]: Patient intubated with glidescope#3, ETT 7.0, "easy pass through.." No issues noted per post-op anesthesia progress note) Social History Smoking Status: Never smoker Do You Dip or Chew Tobacco: No Hx Alcohol Use: No Hx Substance Use: No substance use type: does not use Lab Results Anesthesia Preop Results Results Anesthesia Widget: WBC 6.84 K/ul (4.8-10.8) 03/31/24 Hgb 12.3 g/dl (12.0-16.0) 03/31/24 Hct 36.5 % (37.0-47.0) L 03/31/24 Plt 219 K/uL (130-400) 03/31/24 Na 137 mmol/L (136-145) 03/31/24 K 3.8 mmol/L (3.5-5.1) 03/31/24 Cl 101 mmol/L (98-107) 03/31/24 CO2 30 mmol/L (21-32) 03/31/24 BUN 18 mg/dl (6-23) 03/31/24 Creat 1.01 mg/dl (0.6-1.2) 03/31/24 Glucose Level 214 mg/dl (70-99(Fasting)) H 03/31/24 Testing Electrocardiogram Date: 03/31/24 Findings: + NSR @ (82)
[2024-04-20] MEDS ORDERED: ePHEDrine sulfate 50 MG/ML AMP IV PRN (10:02)
[2024-04-20] MEDS ORDERED: DROPERIDOL 5 MG/2 ML VIAL IV PRN (10:02)
[2024-04-20] MEDS ORDERED: ATROPINE SULFATE 0.1 MG/ML 10ML SYR IV PRN (10:02)
[2024-04-20] MEDS ORDERED: fentaNYL citrate PF 100 MCG/2 ML VIAL ONE ×2 (10:04→13:01)
[2024-04-20] MEDS: SCOPOLAMINE 1 MG/72 HR TDSY PATCH TD STA (10:07)
[2024-04-20] MEDS: SCOPOLAMINE 1 MG/72 HR TDSY PATCH TD ONE (10:07)
[2024-04-20] MEDS: LR 15ML/HR IV SCH (10:07)
--- NOTE | 2024-04-20 11:09 | History & Physical Bridge Note ---
Date of Service April 20, 2024 History & Physical Bridge Note I have examined the patient, reviewed the History & Physical and in the interval since the performance of the History & Physical I have noted the following changes of clinical significance: no changes noted
[2024-04-20] MEDS ORDERED: MIDAZOLAM HCL 1 MG/ML 2ML VIAL ONE (11:46)
[2024-04-20] MEDS: ceFAZolin 2000MG 2,000 MG/15 ML SYR IV SCH ×2 (11:52→21:17)
[2024-04-20] MEDS ORDERED: DEXAMETHASONE SOD INJ 4 MG/ML VIAL ONE (12:07)
[2024-04-20] MEDS ORDERED: LIDOCAINE 2% 2 ML VIAL/AMP(20MG/ML) INFIL ONE (12:08)
[2024-04-20] MEDS ORDERED: PROPOFOL IV EMULSION 10 MG/ML 20 ML VIAL IV ONE (12:08)
[2024-04-20] MEDS ORDERED: ROCURONIUM BROMIDE 10 MG/ML 5 ML VIAL IV ONE (12:08)
[2024-04-20] MEDS ORDERED: ONDANSETRON INJ 2 MG/ML 2 ML VIAL ONE (12:08)
[2024-04-20] MEDS: BUPIVACAINE/EPINEPHRINE 0.5% MPF 1:200,000 30 ML VIAL ONE (14:08)
[2024-04-20] MEDS: HYDROmorphone INJ 2 MG/ML SYR/VIAL IV PRN (14:47)
--- NOTE | 2024-04-20 15:09 | Anesthesiology Progress Note ---
Date of Service April 20, 2024 Anesthesia Post Procedure Vital Signs Vital Signs: Temp Pulse Pulse Resp BP Pulse Ox O2 Del Method 04/20/24 15:00 88 18 163/78 H 95 Nasal Cannula 04/20/24 14:50 88 22 155/78 H 95 Nasal Cannula 04/20/24 14:40 86 25 H 164/70 H 96 Nasal Cannula 04/20/24 14:30 89 25 H 142/78 H 98 Nasal Cannula 04/20/24 14:22 36.7 C 85 22 138/70 98 Nasal Cannula 04/20/24 10:10 37.1 C 102 H 20 149/87 H 96 Room Air O2 Flow Rate 04/20/24 15:00 2 04/20/24 14:50 2 04/20/24 14:40 2 04/20/24 14:30 2 04/20/24 14:22 2 04/20/24 10:10 Pain Intensity Lower Abdomen: Pain Intensity: 3 Transfer of Care Handoff Completed per policy Notes Mental Status: alert / awake / arousable Patient Amnestic to Procedure: Yes Nausea / Vomiting: adequately controlled Pain: adequately controlled Airway Patency, RR, SpO2: stable & adequate BP & HR: stable & adequate Hydration State: stable & adequate Anesthetic Complications: no major complications apparent and Pt Satisfied with anesthetic care
[2024-04-20] MEDS ORDERED: oxyCODONE HCL IR 5 MG TAB (IMMEDIATE RELEASE) PO PRN ×2 (15:59)
[2024-04-20] MEDS ORDERED: GLUCOSE 10 TAB/TUBE PO PRN (15:59)
[2024-04-20] MEDS ORDERED: GLUCAGON FOR INJ 1 MG VIAL SQ PRN (15:59)
[2024-04-20] MEDS ORDERED: GLUCOSE 40% GEL 15 GM TUBE PO PRN (15:59)
[2024-04-20] MEDS ORDERED: PHARMACY GLYCEMIC MGMT CONSULT PRN (15:59)
[2024-04-20] MEDS ORDERED: HYDROmorphone INJ 0.5 MG/0.5 ML SYR IV PRN ×2 (15:59)
[2024-04-20] MEDS ORDERED: DEXTROSE 50% 50 ML SYRINGE IV PRN (15:59)
[2024-04-20] MEDS ORDERED: CARBOHYDRATES FOR HYPOGLYCEMIA PO PRN (15:59)
[2024-04-20] MEDS: LACTATED RINGER'S 1,000 ML IV SCH (16:10)
[2024-04-20] MEDS: CHECK SCOPOLAMINE PATCH PLACEMENT SCH (16:19)
[2024-04-20] MEDS: ACETAMINOPHEN 1,000 MG/100 ML VIAL IV SCH (16:20)
[2024-04-20] MEDS: INSULIN ASPART PER UNIT CHARGE SC SCH ×2 (17:05→23:42)
--- NOTE | 2024-04-20 18:29 | Operative Report ---
PG Post Operative Report Pre & Post Diagnosis Operation Date: 04/20/24 10:55 Pre-Op Diagnosis: Mesenteric Mass Post-Op Diagnosis: small bowel Mesenteric Mass I identified the patient and participated in the time-out.: Yes Procedure Operation Date: 04/20/24 10:55 Actual Procedures p Diagnostic Laparoscopy, Open Ileocecectomy - Munir Sultana DO Surgeon Munir Sultana DO Case Liner [email or web address] epstein Estimated Blood Loss 100 Findings Consistent with Post-Op Diagnosis Specimens terminal ileum, cecum Description of Procedure After informed consent was obtained the patient was taken to the operating room and placed in supine position. After successful intubation the abdomen was sterilely prepped and draped in usual fashion. I began with a supraumbilical incision with an 11 blade scalpel. This was carried down through the soft tissue using cautery. Anterior fascia was opened using cautery and two #0 Vicryl stay sutures were placed. Peritoneum was elevated with hemostats and incised under direct vision using a Metzenbaum scissor. A finger sweep was performed. A 12 mm Resendiz trocar was placed and the abdomen was insufflated to 18 mmHg. A right upper quadrant 5 mm trocar and a right mid abdominal 5 mm trocar were placed under direct vision. The patient was placed in a reverse Trendelenburg position and slightly air-planed to the right. There was some abnormality of the liver consistent with fatty liver. Otherwise no other gross abnormalities were initially seen. I began by identifying the ligament of Treitz. We ran the small bowel distally looking at the mesentery as well as the small bowel itself. There were no abnormalities until we got to the terminal ileum. Several centimeters proximal to the cecum there was a gross abnormality of the mesenteric side of the small bowel as well as the mesentery itself. It was very hard and very contracted and folded upon itself. The mesentery itself was shortened because of this. This made evaluation laparoscopically almost impossible. This was clearly her issue. I therefore removed the trocars and created a lower midline open incision with a 10 blade scalpel. The fascia was opened to both poles. Once in the abdomen I was able to evaluate the mass. Because of its close proximity to the cecum I would have to perform an ileocecectomy. I began by mobilizing the cecum and right colon along the white line of Toldt. I then identified some normal small bowel proximal to the mass and created a window in the mesentery and transected the bowel using a XENA brown cartridge linear stapler. I then performed a similar maneuver by making a window in the mesentery of the right colon. I transected the cecum again using a XENA brown cartridge stapler. We then took down the mesentery of the cecum as well as the distal small bowel using the LigaSure device. I was able to get underneath the mass and stayed near the base of the mesentary however is unclear to me if I was able to get negative margins on the mesenteric side. We passed the specimen off. Next I performed a [id number] small bowel to right colon anastomosis again using a XENA brown cartridge linear stapler. A TA 60 stapling device was used to close the common enterotomy. 2-0 Vicryl was used to close the mesenteric defect. 3-0 silk was also used to place a crotch stitch. The anastomosis was widely patent with no evidence of any ischemia. We ran the small bowel backwards manually and no other abnormalities were identified. There was no spillage in the abdomen during the process. I will state that after the anastomosis my nurse practitioner and I both changed our gloves. We thoroughly irrigated the lower abdomen. The fascia was closed using #1 PDS in running fashion. Soft tissue was irrigated and skin was closed using skin doc. The fascia the camera port was closed using 0 Vicryl in [id number] fashion and the port sites were also closed using skin doc. Silver dressing gauze and tape were applied. The patient was awakened, extubated and transferred to recovery in stable condition. My nurse practitioner was present for the entire case was instrumental in assisting with all aspects of the case including exposure, assisting with the anastomosis, wound closure and dressing placement. I attest to the content of the Intraoperative Record and any orders documented therein. Any exceptions are noted below.
[2024-04-21] MEDS: amLODIPine BESYLATE 5 MG TAB PO SCH (08:19)
[2024-04-21] MEDS: hydroCHLOROthiazide 25 MG TAB PO SCH (08:20)
[2024-04-21] MEDS: VIBEGRON 75 MG TAB PO SCH (08:20)
[2024-04-21 08:52] LABS: Basophils # (auto) 0.01 K/uL (0.00-0.20); Basophils % (auto) 0.1 %; Hematocrit (blood only) 33.7 % (37.0-47.0); Hemoglobin 11.4 g/dl (12.0-16.0); Immature Granulocytes # (auto) 0.05 K/uL (0.01-0.20); Immature Granulocytes % (auto) 0.4 %; Lymphocytes # (auto) 1.32 K/uL (1.20-3.40); Lymphocytes % (auto) 10.1 %; Mean Corpuscular Hemoglobin 29.8 pg (25.0-34.0); Mean Corpuscular Hgb Conc 33.8 g/dL (32.0-36.0); Mean Platelet Volume 12.2 fL (9.4-12.4); Monocytes # (auto) 0.85 K/uL (0.11-0.59); Monocytes % (auto) 6.5 %; Neutrophils # (auto) 10.86 K/uL (1.40-6.50); Neutrophils % (auto) 82.9 %; Platelet Count 188 K/uL (130-400); RDW Coefficient of Variation 12.8 % (11.5-14.5); Red Blood Count 3.83 M/uL (4.20-5.40); White Blood Count 13.09 K/ul (4.8-10.8)
--- NOTE | 2024-04-21 09:19 | Surgery Progress Note ---
Date of Service April 21, 2024 Assessment & Plan (1) Mesenteric mass: Plan: pod 1 doing well d/c fabian stay on clears Dr. Grey covering for weekend. Admission and Anticipated Discharge Date Admission Date: April 21, 2024 Subjective pt seen. feeling surprisingly well. no n/v pain controlled Physical Exam Physical Exam: alert. nad abd: soft. expected tenderness Results & Data Vital Signs (Past 12 Hours) Vital Signs Temp Pulse Resp BP Pulse Ox O2 Del Method 04/21/24 07:44 36.5 C 79 14 100/62 95 Room Air 04/21/24 04:05 36.9 C 75 18 113/70 95 CPAP 04/20/24 23:14 36.9 C 95 H 18 114/70 94 CPAP PG Care Time/CCT Total # of Minutes Spent Total Time Spent with Patient: Total time spent is greater than 50% in coordination of care (as documented) at patient's floor/unit and/or counseling patient: Coding Level of Care Code 57610 Post Operative Follow-Up Diagnoses Mesenteric mass K63.89
[2024-04-21 09:27] LABS: Albumin Globulin Ratio 1.5 (0.9-2); Albumin Level 3.8 gm/dl (3.4-5.0); BUN Creatinine Ratio 16.4 (10-20); Bilirubin,Total 0.5 mg/dl (0.2-1.0); Calcium 8.5 mg/dl (8.6-10.3); Creatinine Clr Calc Pharmacy 105.8 ml/min; Est GFR (African American) 109.5 ml/min; Est GFR (Non-African American) 94.5 ml/min; Globulin 2.5 gm/dl (2.5-4.0); Potassium 3.7 mmol/L (3.5-5.1); Total Protein 6.3 gm/dl (6.0-8.3)
[2024-04-21 09:34] LABS: Estimated Average Glucose 171 mg/dl; Hemoglobin A1C 7.6 % (4.5-5.6)
[2024-04-21] MEDS: LANTUS PER UNIT CHARGE SC ONE (10:30)
--- NOTE | 2024-04-21 11:45 | Pharmacy Report ---
Pharmacy Glycemic Short Note 2 - Date of Service April 21, 2024 - Glycemic Short BSG Results (Last 24 hours): 04/20/24 04/20/24 04/20/24 14:27 16:38 20:27 Glucose POC Glucose 229 H 228 H 226 H 04/20/24 04/21/24 04/21/24 23:37 04:00 07:26 Glucose 149 H POC Glucose 188 H 197 H 04/21/24 08:01 Glucose POC Glucose 153 H OUTPATIENT ANTIDIABETIC REGIMEN: * Glimepiride * Metformin * Mounjaro * HbA1c 7.6% on 04/21/24 ASSESSMENT: * 64 yo F w T2Dm POD 1. Dexamethasone yesterday. * AM fasting above goal. Will initiate low dose Lantus. May not require ongoing as steroid effects will likely have dissipated by tomorrow AM * Novolog ordered at moderate stress estimate. OK for now, but of note patient has consumed <25g CHO per meal therefore unable to easily assess adequacy of regimen at this time PLAN FOR INPATIENT GLYCEMIC CONTROL: * Hold outpatient oral diabetes medications * Basal insulin * Lantus 15 units SQ x1 today * Bolus insulin * NovoLog per scale ACHS or Q6hrs while NPO * Goal Range: Low 110 mg/dL - High 140 mg/dL * Correction Factor: 25 mg/dL/unit * Nutritional / Prandial insulin per carb ratio of 1 unit per 8 grams CHO consumed
[2024-04-22 08:16] LABS: Albumin Globulin Ratio 1.5 (0.9-2); Albumin Level 3.7 gm/dl (3.4-5.0); BUN Creatinine Ratio 16.1 (10-20); Bilirubin,Total 0.7 mg/dl (0.2-1.0); Calcium 8.4 mg/dl (8.6-10.3); Creatinine Clr Calc Pharmacy 115.3 ml/min; Est GFR (African American) 112.6 ml/min; Est GFR (Non-African American) 97.2 ml/min; Globulin 2.4 gm/dl (2.5-4.0); Potassium 3.4 mmol/L (3.5-5.1); Total Protein 6.1 gm/dl (6.0-8.3)
[2024-04-22 08:19] LABS: Basophils # (auto) 0.03 K/uL (0.00-0.20); Basophils % (auto) 0.4 %; Eosinophils # (auto) 0.06 K/uL (0.00-0.50); Eosinophils % (auto) 0.7 %; Hematocrit (blood only) 31.8 % (37.0-47.0); Hemoglobin 10.6 g/dl (12.0-16.0); Immature Granulocytes # (auto) 0.04 K/uL (0.01-0.20); Immature Granulocytes % (auto) 0.5 %; Lymphocytes # (auto) 1.62 K/uL (1.20-3.40); Lymphocytes % (auto) 19.5 %; Mean Corpuscular Hemoglobin 29.4 pg (25.0-34.0); Mean Corpuscular Hgb Conc 33.3 g/dL (32.0-36.0); Mean Corpuscular Volume 88.1 fL (80.0-100.0); Monocytes # (auto) 0.69 K/uL (0.11-0.59); Monocytes % (auto) 8.3 %; Neutrophils # (auto) 5.86 K/uL (1.40-6.50); Neutrophils % (auto) 70.6 %; Platelet Count 187 K/uL (130-400); RDW Coefficient of Variation 13.1 % (11.5-14.5); RDW Standard Deviation 42.4 fL (36.4-46.3); Red Blood Count 3.61 M/uL (4.20-5.40)
[2024-04-22] MEDS ORDERED: POTASSIUM CHLORIDE CRTAB 20 MEQ TABCR PO STA (10:00)
--- NOTE | 2024-04-22 10:08 | Surgery Progress Note ---
<Statement entered by Kaiele Grey DO - 04/22/24 13:52> I seen and examined this patient with the surgical DELPHI DEVELOPER. Awaiting return of full bowel function I agree with this plan Date of Service April 22, 2024 Assessment & Plan (1) History of colon surgery: Plan: POD 2 Diagnostic Laparoscopy, Open Ileocecectomy Doing well OOB ambulating in halls tolerating clears no n/v Will wait to advance diet once return of bowel function VSS , no wbc elevation Change drsg tomorrow (2) Hypokalemia: Plan: K 3.4 repeated via IV oral may upset stomach since only on clears will check mg level Admission and Anticipated Discharge Date Admission Date: April 21, 2024 Subjective reports feeling well Denies n/v , flatus or bm Review of Systems Constitutional: no fever and no chills Cardiovascular: no chest pain Gastrointestinal: + abdominal pain (expected post surgical pain ); no nausea and no vomiting Musculoskeletal: no muscle weakness Physical Exam Constitutional: well developed, cooperative and comfortable; no acute distress Respiratory: normal respiratory effort and able to speak in complete sentences; no respiratory distress Cardiovascular: Rate/Rhythm: regular rate Gastrointestinal (Abdomen): Inspection/Auscultation: + abdominal surgical incision (dressing cdi ); abdomen not distended Percussion/Palpation: abdomen soft Results & Data Vital Signs (Past 12 Hours) Vital Signs Temp Pulse Resp BP Pulse Ox O2 Del Method 04/22/24 07:12 98.8 F 76 16 145/71 H 96 Room Air 04/21/24 22:57 98.4 F 81 16 147/69 H 95 Room Air Results CBC w Diff Results: RBC 3.61 M/uL (4.20-5.40) L 04/22/24 WBC 8.30 K/ul (4.8-10.8) 04/22/24 Hgb 10.6 g/dl (12.0-16.0) L 04/22/24 Hct 31.8 % (37.0-47.0) L 04/22/24 MCV 88.1 fL (80.0-100.0) 04/22/24 MCH 29.4 pg (25.0-34.0) 04/22/24 MCHC 33.3 g/dL (32.0-36.0) 04/22/24 RDW Standard Deviation 42.4 fL (36.4-46.3) 04/22/24 RDW Coefficient of Variation 13.1 % (11.5-14.5) 04/22/24 Plt Count 187 K/uL (130-400) 04/22/24 MPV 11.0 fL (9.4-12.4) 04/22/24 Nucleated Red Blood Cells % (auto) 0.7 % 12/09 Nucleated RBC Absolute Count (auto) 0.06 K/uL (0-0) H 0310/29 Neutrophils (%) (Auto) 70.6 % 04/22/24 Lymphocytes (%) (Auto) 19.5 % 04/22/24 Monocytes # (Auto) 0.69 K/uL (0.11-0.59) H 04/22/24 Eosinophils # (Auto) 0.06 K/uL (0.00-0.50) 04/22/24 Immature Granulocyte % (Auto) 0.5 % 04/22/24 Neutrophils # (Auto) 5.86 K/uL (1.40-6.50) 04/22/24 Lymphocytes # (Auto) 1.62 K/uL (1.20-3.40) 04/22/24 Monocytes # (Auto) 0.69 K/uL (0.11-0.59) H 04/22/24 Eosinophils # (Auto) 0.06 K/uL (0.00-0.50) 04/22/24 Basophils # (Auto) 0.03 K/uL (0.00-0.20) 04/22/24 Immature Granulocyte # (Auto) 0.04 K/uL (0.01-0.20) 4 ANC 2.88 K/uL (1.4-6.5) 12/08/18 ALC 8.41 K/uL (1.2-3.4) H 12/08/18 Neutrophils % (Manual) 24.8 % 12/08/18 Band Neutrophils % 0.0 % 12/06/18 Lymphocytes % (Manual) 10.6 % 12/08/18 Reactive Lymphocytes % (Manual) 61.9 % 12/08/18 Large Granular Lymphocytes 0.0 % 12/06/18 Monocytes % (Manual) 2.7 % 12/08/18 Eosinophils % (Manual) 0.0 % 12/06/18 Basophils % (Manual) 0.0 % 12/06/18 Metamyelocytes % (manual) 0.0 % 12/06/18 Myelocytes % (Manual) 0.0 % 12/06/18 Promyelocytes % (Manual) 0.0 % 12/06/18 Blast Cells % (Manual) 0.0 % 12/06/18 Prolymphocyte % 0.0 % 12/06/18 Plasma Cells % (manual) 0.0 % 12/06/18 Other Cells % 0.0 % 12/06/18 Neutrophils # (Manual) 2.88 K/uL (1.4-6.5) 12/08/18 Lymphocytes # (Manual) 1.23 K/uL (1.2-3.4) 12/08/18 Reactive Lymphocytes # 7.18 K/uL 12/08/18 Monocytes # (Manual) 0.31 K/uL (0.11-0.59) 12/08/18 Myelocytes # (Manual) 0.11 K/uL (0-0) H 12/04/18 Red Blood Cell Morphology Unremarkable 12/05/18 Target Cells 1+ 12/08/18 Toxic Vacuolation 1+ 12/07/18 Red Cell Morphology Comment 01/12/23 PG Care Time/CCT Total # of Minutes Spent Total Time Spent with Patient: Total time spent is greater than 50% in coordination of care (as documented) at patient's floor/unit and/or counseling patient: Coding Level of Care Code 91147 Post Operative Follow-Up Diagnoses History of colon surgery Z98.890 Hypokalemia E87.6
[2024-04-22 10:34] LABS: Magnesium 1.7 mg/dl (1.7-2.4)
[2024-04-22] MEDS: POTASSIUM CHLORIDE / WTR 10 MEQ/100 ML PLCT IV SCH (10:58)
[2024-04-23 06:58] LABS: Basophils # (auto) 0.02 K/uL (0.00-0.20); Basophils % (auto) 0.3 %; Eosinophils # (auto) 0.12 K/uL (0.00-0.50); Hematocrit (blood only) 29.7 % (37.0-47.0); Immature Granulocytes # (auto) 0.01 K/uL (0.01-0.20); Immature Granulocytes % (auto) 0.2 %; Lymphocytes # (auto) 1.39 K/uL (1.20-3.40); Lymphocytes % (auto) 22.8 %; Mean Corpuscular Hemoglobin 29.9 pg (25.0-34.0); Mean Corpuscular Hgb Conc 33.7 g/dL (32.0-36.0); Mean Corpuscular Volume 88.7 fL (80.0-100.0); Mean Platelet Volume 11.2 fL (9.4-12.4); Monocytes # (auto) 0.69 K/uL (0.11-0.59); Monocytes % (auto) 11.3 %; Neutrophils # (auto) 3.87 K/uL (1.40-6.50); Neutrophils % (auto) 63.4 %; Platelet Count 168 K/uL (130-400); RDW Coefficient of Variation 13.1 % (11.5-14.5); RDW Standard Deviation 42.6 fL (36.4-46.3); Red Blood Count 3.35 M/uL (4.20-5.40)
[2024-04-23 07:16] LABS: Albumin Globulin Ratio 1.5 (0.9-2); Albumin Level 3.5 gm/dl (3.4-5.0); Bilirubin,Total 0.6 mg/dl (0.2-1.0); Calcium 8.2 mg/dl (8.6-10.3); Creatinine Clr Calc Pharmacy 119.6 ml/min; Est GFR (Non-African American) 98.3 ml/min; Globulin 2.3 gm/dl (2.5-4.0); Potassium 3.3 mmol/L (3.5-5.1); Total Protein 5.8 gm/dl (6.0-8.3)
--- NOTE | 2024-04-23 09:59 | XRay Report ---
XR foot LT 2V CLINICAL HISTORY: 4 5th Left toe pain COMPARISON STUDY: None. FINDINGS: No fracture or dislocation of the left foot. There is mild dorsal soft tissue swelling with in the left forefoot. No radiopaque foreign bodies. Plantar and posterior calcaneal spurs are noted. Mild degenerative changes at the interphalangeal and first MTP joints. The Lisfranc joint is aligned. IMPRESSION: Mild dorsal soft tissue swelling within the left forefoot. No acute fractures. ACT 112: Negative or not required by law. Electronically signed by: Feliciano Melara M.D. 04/23/2024 9:58 AM
--- NOTE | 2024-04-23 10:40 | Surgery Progress Note ---
<Statement entered by Kailee Grey DO - 04/23/24 16:19> I have seen and examined this patient with the surgical PA, I agree with this plan. Date of Service April 23, 2024 Assessment & Plan (1) Mesenteric mass: Plan: pod#3 diagnostic laparoscopy with ileocecectomy wbc 6, hbg 10. vitals stable tolerating full liquids and having + bowel function, will advance to low fiber this AM. d/c IVF add dvt ppx in the form of lovenox Xray of L foot obtained, no acute fractures identified incisions c/d/i, dressings changed doing well, anticipate discharge to home likely tomorrow Admission and Anticipated Discharge Date Admission Date: April 21, 2024 Subjective Patient feeling well from abdominal standpoint. no pain, nausea/vomiting. is having + bowel function. she hurt her L foot 4th/5th toes while walking with IV pole yesterday and questions if she fractured them. otherwise doing very well. Physical Exam Physical Exam: awake/alert, no distress Respiratory: normal respiratory effort Gastrointestinal (Abdomen): Inspection/Auscultation: + abdominal surgical incision (c/d/i with doc, no signs of infection) Percussion/Palpation: abdomen soft; abdomen nontender Results & Data Vital Signs (Past 12 Hours) Vital Signs Temp Pulse Resp BP Pulse Ox O2 Del Method 04/23/24 07:08 98.4 F 78 18 126/73 96 Room Air PG Care Time/CCT Total # of Minutes Spent Total Time Spent with Patient: Total time spent is greater than 50% in coordination of care (as documented) at patient's floor/unit and/or counseling patient: Coding Level of Care Code 83736 Post Operative Follow-Up Diagnoses Mesenteric mass K63.89
[2024-04-23] MEDS: ACETAMINOPHEN 500 MG TAB PO PRN (20:33)
[2024-04-24 07:51] LABS: Albumin Globulin Ratio 1.4 (0.9-2); Albumin Level 3.6 gm/dl (3.4-5.0); Bilirubin,Total 0.6 mg/dl (0.2-1.0); Calcium 8.7 mg/dl (8.6-10.3); Creatinine Clr Calc Pharmacy 111.3 ml/min; Est GFR (African American) 111.3 ml/min; Est GFR (Non-African American) 96.1 ml/min; Globulin 2.6 gm/dl (2.5-4.0); Potassium 3.3 mmol/L (3.5-5.1); Total Protein 6.2 gm/dl (6.0-8.3)
[2024-04-24 07:56] LABS: Hematocrit (blood only) 30.5 % (37.0-47.0); Hemoglobin 10.6 g/dl (12.0-16.0); Mean Corpuscular Hemoglobin 30.4 pg (25.0-34.0); Mean Corpuscular Hgb Conc 34.8 g/dL (32.0-36.0); Mean Corpuscular Volume 87.4 fL (80.0-100.0); Mean Platelet Volume 11.5 fL (9.4-12.4); Platelet Count 191 K/uL (130-400); RDW Standard Deviation 41.1 fL (36.4-46.3); Red Blood Count 3.49 M/uL (4.20-5.40); White Blood Count 5.05 K/ul (4.8-10.8)
[2024-04-24 07:57] LABS: Basophils # (auto) 0.03 K/uL (0.00-0.20); Basophils % (auto) 0.6 %; Eosinophils # (auto) 0.15 K/uL (0.00-0.50); Immature Granulocytes # (auto) 0.01 K/uL (0.01-0.20); Immature Granulocytes % (auto) 0.2 %; Lymphocytes # (auto) 1.18 K/uL (1.20-3.40); Lymphocytes % (auto) 23.4 %; Monocytes # (auto) 0.55 K/uL (0.11-0.59); Monocytes % (auto) 10.9 %; Neutrophils # (auto) 3.13 K/uL (1.40-6.50); Neutrophils % (auto) 61.9 %
--- NOTE | 2024-04-24 08:49 | Surgery Progress Note ---
Date of Service April 24, 2024 Assessment & Plan (1) Mesenteric mass: Plan: POD 4 doing well ok for d/c. instructions given. Path still pending. Admission and Anticipated Discharge Date Admission Date: April 21, 2024 Subjective pt seen. doing very well. patricia diet. +loose bm's. minimal pain. Physical Exam Physical Exam: alert. nad abd: soft. expected tenderness. incision looks good Results & Data Vital Signs (Past 12 Hours) Vital Signs Temp Pulse Pulse Resp BP Pulse Ox O2 Del Method 04/24/24 08:00 36.9 C 86 22 128/76 94 Room Air 04/24/24 07:04 36.8 C 76 16 125/69 94 Room Air PG Care Time/CCT Total # of Minutes Spent Total Time Spent with Patient: Total time spent is greater than 50% in coordination of care (as documented) at patient's floor/unit and/or counseling patient: Coding Level of Care Code 70242 Post Operative Follow-Up Diagnoses Mesenteric mass K63.89
[2024-04-24] MEDS: ENOXAPARIN INJ 40 MG/0.4 ML SYR SQ SCH (09:44)
--- NOTE | 2024-04-26 08:47 | Discharge Summary ---
Date of Service April 24, 2024 Principal Diagnosis mesenteric mass s/p ileocecetomy Discharge Exam awake/alert, no distress Respiratory normal respiratory effort Gastrointestinal (Abdomen) Inspection/Auscultation: + abdominal surgical incision (c/d/i with skin glue) Percussion/Palpation: abdomen soft; abdomen nontender Discharge Data Allergies Allergy/AdvReac Type Severity Reaction Status Date / Time adhesive Allergy Unknown Localized Verified 04/20/24 09:58 rash fluconazole Allergy Unknown Diffuse Verified 04/20/24 09:58 rash Iodinated Contrast Media Allergy Unknown Rash, SOB, Verified 04/20/24 09:58 hives iodine Allergy Unknown Rash Verified 04/20/24 09:58 latex Allergy Unknown Rash Verified 04/20/24 09:58 Sulfa (Sulfonamide Allergy Unknown BLISTERS Verified 04/20/24 09:58 Antibiotics) IN MOUTH azithromycin AdvReac Unknown Blistering, Verified 04/20/24 09:58 mouth sores contact metal agent AdvReac Unknown Redness of Verified 04/20/24 09:58 Skin Procedures Performed Operation Date: 04/20/24 10:55 Actual Procedures p Diagnostic Laparoscopy, Open Ileocecectomy - Munir Sultana, Hospital Course (1) Mesenteric mass: This is a 64yF who presented to the [facility] on 04/20/24 for a scheduled small bowel resection with Dr. Sultana. The patient ultimately underwent an ileocecectomy. The patient tolerated the procedure well, see op note for full details. She recovered in the PACU and was transferred to the med/surg floor in stable condition. She was started on a clear liquid diet. Patient able to void without issues once fabian removed. Her pain was well controlled with prn pain medications. As her bowel function returned her diet was slowly advanced to low fiber without issues. DVT prophylaxis was initiated in the form of qd lovenox. Pulmonary toilet and ambulation were encouraged throughout her stay. Incisions c/d/i. On 04/24 the patient was deemed stable for discharge to home. Dispo instructions reviewed and she was instructed to follow up in the office with Dr. Sultana within 2 weeks. Total Time Total Time Spent Total Time Spent (In Minutes): 15 Discharge Plan Discharge Items Patient Disposition: Home - Self-Care Reason For Visit: Mesenteric Mass, Diabetes Discharge Diagnosis: Diagnostic Laparoscopy, ileocectomy Activity: Per Instructions section Lifting: No more than 10 pounds Bathing Comment: you can shower. No pool or bath for 2 weeks Exercise/Sports: Wait until after follow-up appointment Driving/Machine Use: no driving while on narcotics for pain Non-emergency contact: Surgeon Call non-emergency contact if: you have any medication questions, your pain is not controlled, you have a fever, your temperature is above 101.5, your wound has increased redness, your wound has increased drainage and your wound pain has increased Follow-up/Referrals: Munir Sultana DO [Surgeon] - 05/08/24 10:45 am ( follow up in 2 weeks ) Alana Hernandez MD [Primary Care Provider] - Diet: Low Fiber Addtl Attending Provider Instructions: please call the office for follow up in 2 weeks for check up and staple removal You may keep a dressing over your incision for comfort otherwise you may keep it open to air. continue low fiber diet over next couple of weeks do not take plain Tylenol if you are taking the narcotic percocet for pain as they both contain acetaminophen and you should not exceed >3grams of acetaminophen within a 24 hr time period You may purchase Tylenol and/or Ibuprofen over the counter if needed for a dditional pain control over the next few days. Take per manufacturers instructions Pending Studies at Discharge: Yes Studies:: surgical pathology Stand-Alone Forms: [facility] Medications and DC Order Prescriptions: New oxycodone-acetaminophen [Percocet] 5-325 mg tablet 1 - 2 tab PO .q4-6h PRN (Reason: pain, for initial therapy, max 6 tabs per day) Qty: 15 0RF Continued amlodipine 2.5 mg tablet 2.5 mg PO QAM Qty: 90 3RF Rx Instructions: TAKE 1 TABLET BY MOUTH EVERY MORNING glimepiride 4 mg tablet 4 mg PO QAM Qty: 90 3RF Hold Instructions: Increasing Mounjaro Rx Instructions: on hold per patient hydrochlorothiazide 25 mg tablet 25 mg PO QAM Qty: 90 3RF (DME) OneTouch Ultra Blue Test Strip Strip See Rx Instructions .ROUTE .MEDSUPPLY Qty: 10 Rx Instructions: TEST once DAILY. (DME) lancets [OneTouch UltraSoft Lancets] Misc See Rx Instructions .ROUTE .MEDSUPPLY Qty: 50 Rx Instructions: TEST once DAILY. cholecalciferol (vitamin D3) 50 mcg (2,000 unit) capsule 50 mcg PO QAM calcium carbonate [Calcium 600] 600 mg calcium (1,500 mg) tablet 600 mg PO QAM (DME) lancets [OneTouch UltraSoft Lancets] Misc See Rx Instructions .ROUTE .MEDSUPPLY Rx Instructions: TESTS once DAILY clotrimazole-betamethasone 1-0.05 % cream 1 applic topical UD PRN (Reason: skin irritation) Qty: 15 0RF Rx Instructions: Apply to areas of the abdomen once daily for up to 5 days as needed for flaring. colestipol 1 gram tablet 1 g PO BID Dose Instruction: TAKE 2 TABLETS BY MOUTH IN THE MORNING AND TAKE 1 TABLET AT NIGHT Rx Instructions: TAKE 2 TABLETS BY MOUTH IN THE MORNING AND TAKE 2 TABLETS AT NIGHT tirzepatide 10 mg/0.5 mL pen injector 10 mg subcut WK Qty: 2 3RF Rx Instructions: Take 10 mg once weekly on Wednesday AM multivitamin Tablet 1 tab PO QAM Florajen Acidophilus 460 mg (20 billion cell) Capsule 460 mg PO QAM ascorbic acid (vitamin C) [Vitamin C With Kelli Hips] 1,000 mg Tablet 500 mg PO QAM metformin 500 mg tablet extended release 24 hr 500 mg PO UD Rx Instructions: TAKE 1 TAB IN THE MORNING AND 2 TABLETS IN THE EVENING (PAT VERIFIED 04/05/2024? No Action mirabegron [Myrbetriq] 50 mg tablet extended release 24 hr 50 mg PO DAILY Qty: 90 1RF Discharge Orders: Discharge Order (Routine); Ordered 04/24/24 Ordered By: mAa Russ Admission Data Admit Date/Time: 04/20/24 14:17 Attending Provider: Munir Sultana Admit Provider: Munir Sultana Primary Care Provider: Alana Hernandez Other Interventions: Discharge Summary Assessment (RN) Last Done: 04/24/24 10:21 Coding Level of Care Code 36104 IN/OBS DISCH 30 MIN/LESS Diagnoses Mesenteric mass K63.89
--- NOTE | 2024-04-27 04:20 | Coding Query ---
PATHOLOGY To promote full compliance with coding requirements relating to patient care, physician participation is requested in all cases of granulating machine operator uncertainty. Please assist us with the question(s) below: Please review the Pathology report and please document any relevant diagnosis(es) below: Diagnosis(es): Small Bowel Neuroendocrine Tumor Thank you JANETH Chauhan [facility]
== END 2024-04-24 10:57 | disposition home or self-care (01) | DRG 830 ==
LOC: 3W 09:28 → ASU 09:28 → OBSVTOIN 14:17